=== PATIENT | female | born 1940 | race Caucasian/White ===

== ENCOUNTER → 2017-01-22 | Outpatient (CLI) | payer MEDICARE ==
--- NOTE | 2017-01-23 08:24 | XR ---
Left hip HISTORY: Left hip pain 2 views of the left hip correlated to right hip 10/23/2015 Bone mineralization is reduced. Alignment is maintained. Moderate joint space narrowing is present. N o significant hypertrophic change. No fracture or dislocation. Probable vascular calcifications noted . Suspect some degenerative change at the sacroiliac joint. IMPRESSION: Joint space narrowing is symmetric.
== END | disposition home or self-care (01) ==
LOC: RADXRYALE 12:01
PROVIDERS: ATTEND Physician Assistant Medical
DX: M25.852 Other specified joint disorders, left hip (principal)
CPT/HCPCS: 73502

== ENCOUNTER 2017-04-30 17:16 | Observation (INO) | payer MEDICARE ==
[2017-04-30] MEDS ORDERED: ASPIRIN 81 MG PO STA (17:33)
[2017-04-30 18:01] LABS: Basophils % (A) 0 %; CH 31.9; Eosinophils # (A) 0.2 k/uL (0-0.7); Eosinophils % (A) 3 %; HCT 38.1 % (34.0-46.0); HDW 2.75; HGB 12.8 gm/dL (11.4-16.0); Luc # (Auto) 0.15; Luc % (Auto) 2; Lymphocytes % (A) 25 %; MCH 30.8 pg (25.0-35.0); MCHC 33.6 g/dL (31.0-37.0); MCV 91.6 fL (80.0-100.0); Mean Platelet Volume 8.1; Monocytes # (A) 0.5 k/uL (0-1.0); Monocytes % (A) 6 %; Neutrophils # (A) 4.9 k/uL (1.3-7.7); Neutrophils % (A) 63 %; RBC 4.16 m/uL (3.80-5.40); RDW 14.6 % (11.5-15.5); WBC 7.8 k/uL (3.8-10.6); WBC (Perox) 8.11
[2017-04-30 18:09] LABS: Partial Thromboplastin Time 22.3 sec (22.0-30.0); Prothrombin Time 10.5 sec (9.0-12.0)
[2017-04-30 18:14] LABS: ALT 51 U/L (9-52); Alkaline Phosphatase 51 U/L (38-126); Anion Gap 8 mmol/L; Calcium 9.4 mg/dL (8.4-10.2); Carbon Dioxide 23 mmol/L (22-30); Chloride 109 mmol/L (98-107); Glucose 88 mg/dL (74-99); Magnesium 1.5 mg/dL (1.6-2.3); Non-African American GFR(MDRD) 54 (>60 ml/min/1.73 sqM); Sodium 140 mmol/L (137-145); Total Bilirubin 0.9 mg/dL (0.2-1.3); Total Protein 6.8 g/dL (6.3-8.2)
[2017-04-30 18:18] LABS: AST 41 U/L (14-36); Blood Urea Nitrogen 18 mg/dL (7-17); Potassium 4.3 mmol/L (3.5-5.1)
--- NOTE | 2017-04-30 19:37 | XR ---
EXAMINATION TYPE: XR chest 2V DATE OF EXAM: 04/30/2017 COMPARISON: 09/13/2014 HISTORY: Pain TECHNIQUE: Frontal and lateral views of the chest are obtained. FINDINGS: There is no focal air space opacity, pleural effusion, or pneumothorax seen. The cardiac silhouette size is within normal limits. There is evidence of a prominent hiatal hernia. The osseous structures are intact. IMPRESSION: No acute cardiopulmonary process.
[2017-04-30] MEDS ORDERED: NALOXONE 0.4 MG/ML 1 ML VIAL IV PRN (19:43)
--- NOTE | 2017-04-30 19:43 | ED ---
Chest Pain HPI - General Chief Complaint: Chest Pain Stated Complaint: chest pains Time Seen by Provider: 04/30/17 17:31 Source: patient Mode of arrival: wheelchair Limitations: no limitations - History of Present Illness Initial Comments: patient complains of chest pain. Pain is in the middle of the chest. It radiates to the left arm and shoulder. She has some nausea but no vomiting. He has no belly or back pain. The pain is gotten worse throughout the day. There are no specific exacerbating or relieving factors. She has taken no medications for the pain. She was not doing anything when the pain began. She has no headache. She has no neck pain or stiffness. She has no palpitations. - Related Data Home Medications Medication Instructions Recorded Confirmed Atorvastatin [Lipitor] 40 mg PO DAILY 04/30/17 04/30/17 Cholecalciferol [Vitamin D3] 1,000 unit PO DAILY 04/30/17 04/30/17 Fish Oil/[place] 3 1200mg/360mg 1 cap PO DAILY 04/30/17 04/30/17 Ibuprofen [Motrin] 200 mg PO HS 04/30/17 04/30/17 Losartan/Hydrochlorothiazide 1 tab PO DAILY 04/30/17 04/30/17 [Losartan-Hctz 100-25 mg Tab] Omeprazole [PriLOSEC] 20 mg PO DAILY 04/30/17 04/30/17 Allergies Allergy/AdvReac Type Severity Reaction Status Date / Time No Known Allergies Allergy Verified 04/30/17 18:05 Review of Systems ROS Statement: Those systems with pertinent positive or pertinent negative responses have been documented in the HPI. ROS Other: All systems not noted in ROS Statement are negative. EKG Findings - EKG Comments: EKG Findings:: twelve-lead EKG is interpreted by me showing ventricular rate 81 bpm, normal [place] interval and QRS complexes, no ST elevation or depression, interpreted by me as normal sinus rhythm. Past Medical History Past Medical History: CVA/TIA, Hypertension History of Any Multi-Drug Resistant Organisms: None Reported Past Surgical History: Appendectomy, Coronary Bypass/CABG, Hysterectomy Additional Past Surgical History / Comment(s): left ankle surgery, right shoulder Past Psychological History: Anxiety Smoking Status: Former smoker Past Alcohol Use History: Rare Past Drug Use History: None Reported General Exam Limitations: no limitations General appearance: alert, in no apparent distress Head exam: Present: atraumatic, normocephalic, normal inspection Eye exam: Present: normal appearance, PERRL, EOMI. Absent: scleral icterus, conjunctival injection, periorbital swelling ENT exam: Present: normal exam, mucous membranes moist Neck exam: Present: normal inspection. Absent: tenderness, meningismus, lymphadenopathy Respiratory exam: Present: normal lung sounds bilaterally. Absent: respiratory distress, wheezes, rales, rhonchi, stridor Cardiovascular Exam: Present: regular rate, normal rhythm, normal heart sounds. Absent: systolic murmur, diastolic murmur, rubs, gallop, clicks GI/Abdominal exam: Present: soft, normal bowel sounds. Absent: distended, tenderness, guarding, rebound, rigid Extremities exam: Present: normal inspection, full ROM, normal capillary refill. Absent: tenderness, pedal edema, joint swelling, calf tenderness Back exam: Present: normal inspection Neurological exam: Present: alert, oriented X3, CN II-XII intact Psychiatric exam: Present: normal affect, normal mood Skin exam: Present: warm, dry, intact, normal color. Absent: rash Course Vital Signs 04/30/17 04/30/17 04/30/17 17:23 17:54 19:39 Temperature 97.2 F L Pulse Rate 74 66 63 Respiratory 20 17 18 Rate Blood Pressure 177/66 197/88 175/101 O2 Sat by Pulse 98 99 100 Oximetry Chest Pain MDM - MDM patient complains of chest pain. She has a negative troponin. Her chest x- rays clear. She will be admitted to the hospital for further evaluation. Disposition Clinical Impression: Chest pain Disposition: ADMITTED IP TO THIS HOSP Condition: Fair Referrals: Emmanuel Dunaway DO [Primary Care Provider] - 1-2 days Time of Disposition: 19:43
[2017-04-30 21:01] VITALS: BMI 25.0
[2017-04-30] MEDS ORDERED: NITROGLYCERIN SL TABS 0.4 MG TAB SUBLINGUAL ONE (21:03)
[2017-04-30] MEDS ORDERED: ALPRAZolam 0.25 MG TAB PO PRN (21:55)
[2017-04-30] MEDS: ATORVASTATIN 40 MG TAB PO SCH (22:11)
[2017-05-01 00:37] LABS: Appearance,Urine Clear (Clear); Bacteria,Urine Rare /hpf; Bilirubin,Urine Negative (Negative); Glucose,Urine (UA) Negative (Negative); Ketones,Urine Negative (Negative); Leukocyte Esterase,Urine Large (Negative); Mucus,Urine Rare /hpf; Nitrite,Urine Negative (Negative); Particle Count 1650; Protein,Urine Negative (Negative); RBC,Urine 3 /hpf (0-5); Specific Gravity,Urine 1.007 (1.001-1.035); Squamous Epithelial Cell,Urine <1 /hpf (0-4); UA Billing (MACRO vs. MICRO) MICRO; Urobilinogen,Urine <2.0 mg/dL (<2.0); WBC,Urine 51 /hpf (0-5)
[2017-05-01] MEDS ORDERED: Magnesium Replacement Protocol 1 EACH MISC MISCELLANE PRN (00:48)
[2017-05-01] MEDS: HYDROcodone/APAP 5-325MG 1 EACH TAB PO PRN ×3 (01:19→12:52)
[2017-05-01] MEDS: MAGNESIUM SULFATE-D5W PMX 1 GM in DEXTROSE/WATER 1 100ML.BAG IVPB SCH ×2 (01:21→02:33)
[2017-05-01] MEDS: TEMAZEPAM 15 MG CAP PO PRN ×2 (01:29→22:00)
[2017-05-01 06:09] LABS: Basophils % (A) 1 %; CH 30.4; CHCM 33.9; Eosinophils # (A) 0.3 k/uL (0-0.7); Eosinophils % (A) 4 %; HCT 33.6 % (34.0-46.0); HDW 2.71; HGB 11.3 gm/dL (11.4-16.0); Luc # (Auto) 0.17; Luc % (Auto) 3; Lymphocytes # (A) 2.3 k/uL (1.0-4.8); Lymphocytes % (A) 38 %; MCH 30.4 pg (25.0-35.0); MCHC 33.7 g/dL (31.0-37.0); MCV 90.2 fL (80.0-100.0); Mean Platelet Volume 7.3; Monocytes # (A) 0.4 k/uL (0-1.0); Monocytes % (A) 7 %; Neutrophils % (A) 49 %; RBC 3.73 m/uL (3.80-5.40); RDW 13.9 % (11.5-15.5); WBC 6.2 k/uL (3.8-10.6); WBC (Perox) 6.57
[2017-05-01 06:23] LABS: Anion Gap 7 mmol/L; Blood Urea Nitrogen 23 mg/dL (7-17); Calcium 8.9 mg/dL (8.4-10.2); Carbon Dioxide 24 mmol/L (22-30); Chloride 106 mmol/L (98-107); Glucose 91 mg/dL (74-99); Non-African American GFR(MDRD) >60 (>60 ml/min/1.73 sqM); Potassium 3.5 mmol/L (3.5-5.1); Sodium 137 mmol/L (137-145)
[2017-05-01] MEDS: PANTOPRAZOLE 40 MG TABLET PO SCH (06:37)
[2017-05-01] MEDS ORDERED: DOBUTamine DRIP for NUC MED 500 MG in DEXTROSE/WATER 1 250ML.BAG IV ONE (08:51)
[2017-05-01] MEDS ORDERED: ATORVASTATIN 40 MG TAB PO SCH (09:00)
--- NOTE | 2017-05-01 10:09 | HP ---
HISTORY AND PHYSICAL DATE OF SERVICE: 04/30/2017 CHIEF COMPLAINT: Chest pain. HISTORY OF PRESENT ILLNESS: This 77-year-old, woman with a past medical history of CVA, TIA, hypertension, history of multiple strokes, living with the family, apparently had chest pain and patient came to [facility]. The pain was felt in the anterior part of the chest. Patient is followed by Dr. Dunaway in the outpatient setting. Patient also complaining of some nausea, vomiting and diffuse abdominal pain. The patient appears to be anxious also. There is no specific exacerbation or relieving factors of the pain. No radiation of the pain. The pain is vaguely characterized and admitted for further evaluation and treatment. After admission, the troponins are negative and EKG was also done in the ER, which showed ST-T changes and LVH by voltage criteria. There is no history of fever, rigors or chills. No headache, loss of consciousness or seizures. PAST MEDICAL HISTORY: CVA, TIA, hypertension, several strokes, anxiety. MEDICATIONS: Medications prior to admission include: 1. Motrin 200 mg q.h.s. 2. Prilosec 20 mg daily. 3. Losartan hydrochlorothiazide 100/25 one p.o. daily. 4. Fish oil 1 p.o. daily. 5. Vitamin D3, 1000 units daily. 6. Lipitor 40 mg p.o. daily. ALLERGIES: None. FAMILY HISTORY: No history of heart disease or strokes in the family. SOCIAL HISTORY: No history of smoking. No history of alcohol intake. Previous history of smoking. REVIEW OF SYSTEMS: ENT: No diminished hearing or diminished vision. CARDIOVASCULAR: As mentioned earlier. RESPIRATORY: As mentioned earlier. GI: As mentioned earlier. : No dysuria. NERVOUS SYSTEM: No numbness or weakness. ALLERGY/IMMUNOLOGICAL: No history asthma or hayfever. MUSCULOSKELETAL: As mentioned earlier. HEMATOLOGY/ONCOLOGY: No history of anemia. ENDOCRINE: No history of diabetes or hypothyroidism. CONSTITUTIONAL: As mentioned earlier. DERMATOLOGY: Negative. RHEUMATOLOGY: Negative. PSYCHIATRY: As mentioned earlier.. PHYSICAL EXAMINATION: The patient is alert, oriented x3. Pulse is 66, blood pressure 163/84, respiration 18, temperature is 98.2, pulse ox 100% on 2 L. HEENT: Conjunctivae normal. NECK: No jugular venous distention. CARDIOVASCULAR: S1 and S2 muffled. RESPIRATORY: Breath sounds diminished at the bases. A few scattered rhonchi. No crackles. ABDOMEN: Soft, nontender. No mass palpable. No hepatosplenomegaly. LEGS: No edema. No swelling. NERVOUS SYSTEM: Higher function as mentioned. Moves all 4 limbs. No focal motor or sensory deficits. LYMPHATICS: No lymphadenopathy of the neck, axillae or groin. SKIN: No ulcer, rash or bleeding. EXAMINATION OF THE CHEST: Some superficial tenderness also noted. LABS: CBC within normal limits. Otherwise BUN is 18. Magnesium 1.5, UA shows UTI. ASSESSMENT: 1. Chest pain, possible unstable angina, possible musculoskeletal pain. 2. Urinary tract infection. 3. Hypomagnesemia. 4. Hypertension. 5. History of cerebrovascular accident and transient ischemic attack. 6. History of multiple strokes. RECOMMENDATION AND DISCUSSION: This 77-year-old woman presented with multiple complex medical issues, will monitor the patient closely. Continue the current medication. Magnesium has been replaced. I would also recommend a course of antibiotics and otherwise repeat labs. Cardiology consultation. Symptomatic treatment. Prognosis guarded because of the multiple complex medical issues and further recommendations to follow. Also recommend empiric proton pump inhibitors. Medication for anxiety. Unstable angina protocol. Guarded prognosis because of multiple complex medical issues. Further recommendations to follow. Cardiology has been consulted. A copy of dictation forwarded to Dr. Dunaway who is the primary physician. MMRAZAL / RODN: [id number] /
[2017-05-01] MEDS: LOSARTAN-HCTZ 50-12.5 MG 1 EACH TAB PO SCH (11:27)
--- NOTE | 2017-05-01 12:36 | P.CRDCN ---
History of Present Illness Consult date: 05/01/17 Consult reason: chest pain History of present illness: 77-year-old lady with history of hypertension and dyslipidemia presents to hospital with precordial chest pain. She is a poor historian has hearing impairment chest discomfort is pericardial without definite radiation to neck, back unassociated with diaphoresis. Since being admitted she is doing well EKG doesn't reveal ischemic changes cardiac enzymes have been negative. I will do a dobutamine echo on her today if this is abnormal do cardiac catheterization. Review of Systems Constitutional: Denies chills. Denies fever. Eyes: Denies blurred vision. Denies pain. Ears, nose, mouth and throat: Denies headache. Denies sore throat. Cardiovascular: has chest pain. Denies shortness of breath. Respiratory: Denies cough. Gastrointestinal: Denies abdominal pain. Denies diarrhea. Denies nausea. Denies vomiting. Musculoskeletal: Denies myalgias. Integumentary: Denies pruritus. Denies rash. Neurological: Denies numbness. Denies weakness. Psychiatric: Denies anxiety. Denies depression. Endocrine: Denies fatigue. Denies weight change. Genitourinary: Denies burning, hematuria, frequency of urination. Hematological: No anemia or excess bleeding. Past Medical History Past Medical History: CVA/TIA, Hypertension Additional Past Medical History / Comment(s): several strokes per daughter History of Any Multi-Drug Resistant Organisms: None Reported Past Surgical History: Appendectomy, Hysterectomy Additional Past Surgical History / Comment(s): left ankle surgery, right shoulder Past Anesthesia/Blood Transfusion Reactions: No Reported Reaction Past Psychological History: Anxiety Smoking Status: Former smoker Past Alcohol Use History: Rare Past Drug Use History: None Reported - Past Family History Father Family Medical History: No Reported History Mother Family Medical History: No Reported History Daughter(s) Family Medical History: Fibromyalgia Medications and Allergies Home Medications Medication Instructions Recorded Confirmed Type Atorvastatin [Lipitor] 40 mg PO DAILY 04/30/17 04/30/17 History Cholecalciferol [Vitamin D3] 1,000 unit PO DAILY 04/30/17 04/30/17 History Fish Oil/[place] 3 1200mg/360mg 1 cap PO DAILY 04/30/17 04/30/17 History Losartan/Hydrochlorothiazide 1 tab PO DAILY 04/30/17 04/30/17 History [Losartan-Hctz 100-25 mg Tab] Omeprazole [PriLOSEC] 20 mg PO DAILY 04/30/17 04/30/17 History Allergies Allergy/AdvReac Type Severity Reaction Status Date / Time No Known Allergies Allergy Verified 04/30/17 18:05 Physical Exam Vitals: Vital Signs Temp Pulse Pulse Resp BP BP Pulse Ox 05/01/17 11:25 97.1 F L 77 18 130/63 100 05/01/17 11:19 66 18 05/01/17 08:00 97.4 F L 66 18 127/70 95 05/01/17 04:00 97.2 F L 64 18 134/73 94 L 05/01/17 00:00 75 18 131/69 98 04/30/17 21:00 98.2 F 68 18 155/94 100 04/30/17 20:47 66 18 163/84 04/30/17 20:18 97.9 F 04/30/17 19:39 63 18 175/101 100 04/30/17 17:54 66 17 197/88 99 04/30/17 17:23 97.2 F L 74 20 177/66 98 Intake and Output 04/30/17 05/01/17 05/01/17 22:59 06:59 14:59 Intake Total 360 300 Balance 360 300 Intake: IV 60 0.9 60 Intake, IV Titration 300 Amount Magnesium Sulfate-D5w Pmx 200 1 gm In Dextrose/Water 1 100ml.bag @ 100 mls/hr IVPB Q1H ROBBIE Rx#: [id number] cefTRIAXone 1,000 mg In 100 Sodium Chloride 0.9% 50 ml @ 100 mls/hr IVPB Q24H ROBBIE Rx#:[id number] Oral 300 Other: # Voids 1 Weight 58 kg 53.8 kg General: The patient is awake and alert, in no distress, and does not appear acutely ill. Skin: Skin is warm and dry and no rashes or lesions are noted. Eye: Pupils are equal, round and reactive to light, extra-ocular movements are intact; there is normal conjunctiva bilaterally. Ears, nose, mouth and throat: There are moist mucous membranes and no oral lesions. Neck: The neck is supple, there is no tenderness or JVD. Cardiovascular: There is a regular rate and rhythm. No murmur, rub or gallop is appreciated. Respiratory: Lungs are clear to auscultation, respirations are non-labored, breath sounds are equal. Gastrointestinal: Soft, non-distended, non-tender abdomen without masses or organomegaly noted. There is no rebound or guarding present. Bowel sounds are unremarkable. Back: There is no tenderness to palpation in the midline. There is no obvious deformity. Musculoskeletal: Normal ROM, no tenderness, There is no pedal edema. There is no calf tenderness or swelling. Extremities: No edema. Vascular: Femoral pulse is normal. Posterior tibial pulses are normal .Dorsalis pedis is palpable. Neurological: CN II-XII intact. There are no obvious motor or sensory deficits. Speech is normal. Psychiatric: Cooperative, appropriate mood & affect, normal judgment. Results 05/01/17 05:39 05/01/17 05:39 Cardiac Enzymes 04/30/17 04/30/17 04/30/17 Range/Units 17:45 17:45 23:57 AST 41 H (14-36) U/L Troponin I <0.012 0.014 (0.000-0.034) ng/mL 05/01/17 Range/Units 05:39 AST (14-36) U/L Troponin I <0.012 (0.000-0.034) ng/mL Coagulation 04/30/17 Range/Units 17:45 PT 10.5 (9.0-12.0) sec APTT 22.3 (22.0-30.0) sec CBC 04/30/17 05/01/17 Range/Units 17:45 05:39 WBC 7.8 6.2 (3.8-10.6) k/uL RBC 4.16 3.73 L (3.80-5.40) m/uL Hgb 12.8 11.3 L (11.4-16.0) gm/dL Hct 38.1 33.6 L (34.0-46.0) % Plt Count 272 257 (150-450) k/uL Comprehensive Metabolic Panel 04/30/17 05/01/17 Range/Units 17:45 05:39 Sodium 140 137 (137-145) mmol/L Potassium 4.3 3.5 (3.5-5.1) mmol/L Chloride 109 H 106 (98-107) mmol/L Carbon Dioxide 23 24 (22-30) mmol/L BUN 18 H 23 H (7-17) mg/dL Creatinine 1.00 0.80 (0.52-1.04) mg/dL Glucose 88 91 (74-99) mg/dL Calcium 9.4 8.9 (8.4-10.2) mg/dL AST 41 H (14-36) U/L ALT 51 (9-52) U/L Alkaline Phosphatase 51 (38-126) U/L Total Protein 6.8 (6.3-8.2) g/dL Albumin 4.1 (3.5-5.0) g/dL Current Medications Generic Name Dose Route Start Last Admin Trade Name Freq PRN Reason Stop Dose Admin Hydrocodone Bitart/Acetaminophen 1 each 05/01/17 00:47 05/01/17 06:37 [place] 5-325 PO 1 each Q6HR PRN Administration Pain Alprazolam 0.25 mg 04/30/17 21:55 04/30/17 22:11 Xanax PO 0.25 mg Q6H PRN Administration Anxiety Atorvastatin Calcium 40 mg 04/30/17 21:19 04/30/17 22:11 Lipitor PO 40 mg HS ROBBIE Administration HCTZ/Losartan Potassium 2 each 05/01/17 09:00 05/01/17 11:27 Hyzaar 50-12.5 PO 2 each DAILY ROBBIE Administration Ceftriaxone Sodium 1,000 mg/ 50 mls @ 100 mls/hr 05/01/17 02:00 05/01/17 03: 41 Sodium Chloride IVPB 100 mls/hr Q24H ROBBIE Administration Miscellaneous Information 1 each 05/01/17 00:48 Magnesium Per Protocol MISCELLANE DAILY PRN Per Protocol Protocol Naloxone HCl 0.2 mg 04/30/17 19:43 Narcan IV Q2M PRN Opioid Reversal Pantoprazole Sodium 40 mg 05/01/17 07:30 05/01/17 06:37 Protonix PO 40 mg AC-[id number] ROBBIE Administration Temazepam 15 mg 05/01/17 00:47 05/01/17 01:29 Restoril PO 15 mg HS PRN Administration Insomnia Intake and Output 04/30/17 05/01/17 05/01/17 22:59 06:59 14:59 Intake Total 360 300 Balance 360 300 Intake: IV 60 0.9 60 Intake, IV Titration 300 Amount Magnesium Sulfate-D5w Pmx 200 1 gm In Dextrose/Water 1 100ml.bag @ 100 mls/hr IVPB Q1H ROBBIE Rx#: [id number] cefTRIAXone 1,000 mg In 100 Sodium Chloride 0.9% 50 ml @ 100 mls/hr IVPB Q24H ROBBIE Rx#:[id number] Oral 300 Other: # Voids 1 Weight 58 kg 53.8 kg 05/01/17 05:39 05/01/17 05:39 EKG Interpretations (text) Normal sinus rhythm without acute ST-T wave changes Assessment and Plan Plan: Precordial chest pain We need to rule out ischemic heart disease and perform a stress test if that's abnormal she will need a cardiac cath
[2017-05-01] MEDS ORDERED: SIMETHICONE 80 MG CHEWABLE PO PRN (15:46)
[2017-05-01] MEDS ORDERED: ONDANSETRON 4 MG/2 ML VIAL IVP PRN (15:56)
[2017-05-01] MEDS: ATORVASTATIN 40 MG TAB PO SCH (20:21)
--- NOTE | 2017-05-01 22:32 | ECHOS ---
STRESS ECHOCARDIOGRAM Dobutamine Stress Echo INDICATIONS:: Chest pain. MEDICATIONS:: See list. BASELINE HEART RATE:: 76 BASELINE BLOOD PRESSURE:: 161/68 MAXIMUM HEART RATE:: 125 MAXIMUM BLOOD PRESSURE:: 166/68 85% MPHR:: 122 100% MPHR:: 144 METS:: MAXIMUM STAGE REACHED:: 4 mcg/kg per minute TOTAL EXERCISE TIME:: 11:45 INDICATIONS:: Chest pain. CLINICAL INFORMATION:: Baseline EKG revealed sinus mechanism with minor non-specific ST changes. With dobutamine administration as per protocol, heart rate went up to 125 beats per minute, which is more than 85% of predicted maximal. Patient did not have any angina. Isolated PVCs were noted. EKG did not reveal any significant ST-segment changes to indicate ischemia. Upsloping non-specific ST-segment changes were noted. Isolated PVCs were noted. By EKG criteria, this is an inconclusive dobutamine stress test because of minor resting EKG changes. Patient did not have any angina. She achieved 85% of predicted maximal heart rate. Baseline echo images revealed normal wall motion and wall thickening of all segments. At peak exercise, there was good augmentation of left ventricular wall motion and wall thickening of all segments, suggesting that there is no evidence of stress-induced ischemia. There was progressive increase in contractility noted. FINAL IMPRESSION: By EKG criteria, this is an inconclusive dobutamine stress test because of minor resting EKG changes. The patient did not have angina. Isolated PVCs were noted. Normal dobutamine stress echocardiogram without evidence of ischemia. MMODL / IJN: [id number] /
[2017-05-02] MEDS: PANTOPRAZOLE 40 MG TABLET PO SCH (07:01)
[2017-05-02] MEDS: LOSARTAN-HCTZ 50-12.5 MG 1 EACH TAB PO SCH (08:19)
[2017-05-02 08:24] VITALS: TEMP 97.1
[2017-05-02 11:40] VITALS: BP 134/89; PULSE 73; RESP 18
--- NOTE | 2017-05-02 11:42 | PN ---
PROGRESS NOTE DATE OF SERVICE: 05/01/2017 This 77-year-old woman was admitted with chest pain has been closely monitored. Cardiology performed a stress test. No chest pain. No palpitations. No fever. PHYSICAL EXAMINATION: On exam, alert, oriented x3. Pulse 65, blood pressure 126/67, respiration 18, temperature 97.2, pulse ox 98% room air. HEENT: Conjunctivae normal. NECK: No jugular venous distention. CARDIOVASCULAR: S1, S2. RESPIRATORY: Breath sounds diminished at the bases. No rhonchi, no crackles. ABDOMEN: Soft, nontender. LEGS: No edema. NERVOUS SYSTEM: No focal deficits. LABS: WBC 6.2, hemoglobin 11.3, UA possibly UTI. ASSESSMENT: 1. Chest pain, possible unstable angina, possibly musculoskeletal pains for stress test. 2. Urinary tract infection. 3. Hypomagnesemia. 4. Hypertension. 5. History of cerebrovascular accident, transient ischemic attack. 6. History of multiple strokes. RECOMMENDATIONS AND DISCUSSION: In this 77-year-old woman who presented with multiple complex medical issues, will monitor the patient closely. Symptomatic treatment. Antibiotics. Otherwise follow closely with Cardiology. Further recommendations to follow. MMODL / IJN: [id number] /
--- NOTE | 2017-05-02 18:01 | P.DS ---
Providers Date of admission: 04/30/17 19:43 Attending physician: Costa Hathaway Consults: 04/30/17 19:43 Consult Physician Routine Consulting Provider: Manpreet Hair Consult Reason/Comments: chest pain Do you want consulting provider notified?: Yes [facility] Course: This 77-year-old woman with a past medical history of multiple medical problems was admitted with the chest pain. Myocardial infarction was ruled out. Cardiology saw the patient. A dobutamine stress echo was negative for myocardial ischemia. Patient also had UTI. Treated with antibiotic. Patient improved significantly. Cardiology cleared the patient for discharge. On exam vitals stable. Cardio S1 and S2 normal. Respirator system clear to auscultation. Abdomen soft nontender. Final diagnosis 1. Chest pain possibly musculoskeletal chest pain. 2. Negative stress test. 3. UTI. 4. Hypomagnesemia. 5. Hypertension. 6. History of CVA TIA. 7. History multiple strokes. Patient Condition at Discharge: Fair Plan - Discharge Summary New Discharge Prescriptions: New ALPRAZolam [Xanax] 0.25 mg PO Q6H PRN #30 tab PRN Reason: Anxiety Cefuroxime Axetil [Ceftin] 500 mg PO BID #8 tab HYDROcodone/APAP 5-325MG [[place] 5-325] 1 each PO Q6HR PRN #20 tab PRN Reason: Pain Continue Omeprazole [PriLOSEC] 20 mg PO DAILY Losartan/Hydrochlorothiazide [Losartan-Hctz 100-25 mg Tab] 1 tab PO DAILY Cholecalciferol [Vitamin D3] 1,000 unit PO DAILY Atorvastatin [Lipitor] 40 mg PO DAILY Fish Oil/[place] 3 1200mg/360mg 1 cap PO DAILY Discontinued Ibuprofen [Motrin] 200 mg PO HS Discharge Medication List Atorvastatin [Lipitor] 40 mg PO DAILY 04/30/17 [History] Cholecalciferol [Vitamin D3] 1,000 unit PO DAILY 04/30/17 [History] Fish Oil/[place] 3 1200mg/360mg 1 cap PO DAILY 04/30/17 [History] Losartan/Hydrochlorothiazide [Losartan-Hctz 100-25 mg Tab] 1 tab PO DAILY [History] Omeprazole [PriLOSEC] 20 mg PO DAILY 04/30/17 [History] ALPRAZolam [Xanax] 0.25 mg PO Q6H PRN #30 tab 05/02/17 [Rx] Cefuroxime Axetil [Ceftin] 500 mg PO BID #8 tab 05/02/17 [Rx] HYDROcodone/APAP 5-325MG [[place] 5-325] 1 each PO Q6HR PRN #20 tab 05/02/17 [Rx] Follow up Appointment(s)/Referral(s): Emmanuel Dunaway DO [Primary Care Provider] - 3 Days (Answering service stated that offices are closed at this time. Please call to make an appointment for post hospital follow up.) Jean-Paul Monroe MD [STAFF PHYSICIAN] - 1 Week (Ansering service states that offices are closed at this time. Message left with name and phone number. Offices will call with an appointment date and time. ) Ambulatory/Diagnostic Orders: Complete Blood Count w/diff [LAB.AMB] Time Frame: 3 Days, Location: Determined By Patient Complete Blood Count w/diff [LAB.AMB] Location: Determined By Patient Patient Instructions/Handouts: Chest Pain (DC), Heart Healthy Diet (DC), Stress Echocardiogram (DC) Activity/Diet/Wound Care/Special Instructions: Diet: Cardiac Activity: Limited until follow up Discharge Disposition: HOME SELF-CARE
--- NOTE | 2017-05-21 17:42 | CDI ---
Dear Dr Hathaway, On your discharge summary and throughout your documentation the patient is described as having "chest pain possibly musculoskeletal chest pain." On the cardiology consult from Dr Monroe, the diagnosis is listed as precordial chest pain. We are unable to code conflicting diagnosis. Please clarify in your discharge summary the typeof the chest pain the patient had. Thank you for your assistance, Jeane Morley If you have any questions, please contact Publicity Director, Stephie Eugene at [facility], precordial is a type of chest pain. page me with any questions. Rivas TOLENTINO
== END 2017-05-02 14:30 | disposition home or self-care (01) ==
LOC: EC 17:16 → 6SEL 19:43
PROVIDERS: ADMIT Hospitalist; ATTEND Hospitalist
DX: R07.2 Precordial pain (principal); I10 Essential (primary) hypertension; F41.9 Anxiety disorder, unspecified; R11.2 Nausea with vomiting, unspecified; E83.42 Hypomagnesemia; R10.84 Generalized abdominal pain; N39.0 Urinary tract infection, site not specified; H91.90 Unspecified hearing loss, unspecified ear; E78.5 Hyperlipidemia, unspecified; Z79.899 Other long term (current) drug therapy; Z95.1 Presence of aortocoronary bypass graft; Z87.891 Personal history of nicotine dependence; Z86.73 Personal history of transient ischemic attack (TIA), and cerebral infarction without residual deficits
CPT/HCPCS: 96365; 96366; 96367; 96375; 99285; 36415; 93005; 93017; 93350; 83880; 80053; 80048; 83735 ×2; 84484 ×2; 85025 ×2; 85610; 85730; 81001; 71020; G0378 ×3; J1250; J2405; J0696 ×2; J3475

== ENCOUNTER 2017-06-13 14:48 | Emergency (ER) | payer MEDICARE ==
[2017-06-13] MEDS ORDERED: Acetaminophen-Codeine 300-30mg TAB PO STA (15:03)
--- NOTE | 2017-06-13 15:29 | ED ---
Fall HPI - General Chief Complaint: Fall Stated Complaint: fall at home Time Seen by Provider: 06/13/17 14:53 Source: patient, family Mode of arrival: wheelchair Limitations: no limitations - History of Present Illness Initial Comments: This a 77-year-old female presents emergency department trip and fall. Patient states she was walking along states that she caught her foot and fell onto a table. She did strike her right shoulder, right chest wall region. Patient states that she also complains of right hip pain. There is moderate swelling noted there is central right hip. Patient denies any head injury no LOC. Denies neck or any back complaints at this time. Patient is post ambulate with a walker though she tends not to because she does not like to use it. Patient denies any shortness breath, nausea vomiting at this time. Patient has not taken any pain medication prior arrival. - Related Data Home Medications Medication Instructions Recorded Confirmed Atorvastatin [Lipitor] 40 mg PO HS 04/30/17 06/13/17 Cholecalciferol [Vitamin D3] 1,000 unit PO DAILY 04/30/17 06/13/17 Fish Oil/[place] 3 1200mg/360mg 1 cap PO DAILY 04/30/17 06/13/17 Losartan/Hydrochlorothiazide 1 tab PO DAILY 04/30/17 06/13/17 [Losartan-Hctz 100-25 mg Tab] Omeprazole [PriLOSEC] 20 mg PO DAILY 04/30/17 06/13/17 Acetaminophen [Tylenol Extra 500 mg PO Q6H PRN 06/13/17 06/13/17 Strength] Previous Rx's Medication Instructions Recorded Acetaminophen-Codeine 300-30mg 1 tab PO Q4H PRN #20 tablet 06/13/17 [Tylenol #3] Allergies Allergy/AdvReac Type Severity Reaction Status Date / Time acetaminophen [From [place]] Allergy Hallucinati Verified 06/13/17 14:53 ons hydrocodone [From [place]] Allergy Hallucinati Verified 06/13/17 14:53 ons Review of Systems ROS Statement: Those systems with pertinent positive or pertinent negative responses have been documented in the HPI. ROS Other: All systems not noted in ROS Statement are negative. Past Medical History Past Medical History: CVA/TIA, Hypertension Additional Past Medical History / Comment(s): several strokes per daughter History of Any Multi-Drug Resistant Organisms: None Reported Past Surgical History: Appendectomy, Hysterectomy Additional Past Surgical History / Comment(s): left ankle surgery, right shoulder Past Anesthesia/Blood Transfusion Reactions: No Reported Reaction Past Psychological History: Anxiety Smoking Status: Former smoker Past Alcohol Use History: Rare Past Drug Use History: None Reported - Past Family History Father Family Medical History: No Reported History Mother Family Medical History: No Reported History Daughter(s) Family Medical History: Fibromyalgia General Exam Limitations: physical limitation General appearance: alert, in no apparent distress Head exam: Present: atraumatic, normocephalic, normal inspection Eye exam: Present: normal appearance, PERRL, EOMI. Absent: scleral icterus, conjunctival injection, periorbital swelling ENT exam: Present: normal exam, mucous membranes moist Neck exam: Present: normal inspection, full ROM. Absent: tenderness, meningismus, lymphadenopathy Respiratory exam: Present: normal lung sounds bilaterally, chest wall tenderness (Moderate right-sided). Absent: respiratory distress, wheezes, rales , rhonchi, stridor Cardiovascular Exam: Present: regular rate, normal rhythm, normal heart sounds. Absent: systolic murmur, diastolic murmur, rubs, gallop, clicks GI/Abdominal exam: Present: soft, normal bowel sounds. Absent: distended, tenderness, guarding, rebound, rigid Extremities exam: Present: other (Right hip there is a large area of swelling noted to the lateral portion with moderate tenderness patient has pain with range of motion distal right leg nontender neurovascular, right shoulder old surgical scar noted, pain with range of motion and tenderness with palpation) Back exam: Present: normal inspection, full ROM. Absent: tenderness Neurological exam: Present: alert, oriented X3, CN II-XII intact, reflexes normal. Absent: motor sensory deficit Skin exam: Present: warm, dry, intact, normal color. Absent: rash Course Vital Signs 06/13/17 06/13/17 14:51 15:44 Temperature 98.1 F Pulse Rate 73 89 Respiratory 18 20 Rate Blood Pressure 188/68 180/87 O2 Sat by Pulse 98 97 Oximetry Medical Decision Making - Medical Decision Making 77-year-old female presented for fall. Patient had x-rays of the right shoulder , ribs and hip which showed no acute fracture. Patient has multiple contusions with no obvious fracture. Patient discharged without codeine return parameters were discussed. 06/13/17 16:36 EKG performed at 15:34 normal sinus rhythm with a rate of 65 WA interval 182 QRS 74 QT/QTC 436/453 Disposition Clinical Impression: Fall, Multiple contusions, Right hip pain Disposition: HOME SELF-CARE Condition: Stable Instructions: Contusion in Adults (ED) Additional Instructions: Please return to the Emergency Department if symptoms worsen or any other concerns. Prescriptions: Acetaminophen-Codeine 300-30mg [Tylenol #3] 1 tab PO Q4H PRN #20 tablet PRN Reason: pain Referrals: Emmanuel Dunaway DO [Primary Care Provider] - 1-2 days Time of Disposition: 16:37
[2017-06-13 15:45] VITALS: RESP 20
--- NOTE | 2017-06-13 16:14 | XR ---
EXAMINATION TYPE: XR ribs RT w pa chest xray DATE OF EXAM: 06/13/2017 COMPARISON: NONE HISTORY: Fall, pain TECHNIQUE: 2 views right ribs supplemented with a frontal chest FINDINGS: Costochondral cartilage calcification is present. No displaced rib fractures are evident. R ight shoulder repair is evident. No pneumothorax is evident. IMPRESSION: 1. Normal right ribs
--- NOTE | 2017-06-13 16:19 | XR ---
EXAMINATION TYPE: XR Hip RT and AP Pelvis DATE OF EXAM: 06/13/2017 COMPARISON: NONE HISTORY: Pain telephone TECHNIQUE: 2 view right hip FINDINGS: Mild joint space narrowing is present. No acute fractures are evident. IMPRESSION: 1. Mild degenerative joint changes. No acute osseous abnormality is evident.
--- NOTE | 2017-06-13 16:21 | XR ---
EXAMINATION TYPE: XR shoulder limited RT DATE OF EXAM: 06/13/2017 COMPARISON: NONE HISTORY: Pain, fall TECHNIQUE: Shoulder examined in 3 views FINDINGS: The humeral head articulates with the glenoid. The acromio-clavicular junction is normal. No acute fractures or dislocations are evident. A follow up study can be performed 7-10 days from acute trauma for continued pain. IMPRESSION: 1. Normal postsurgical right shoulder. No acute fractures are evident.
[2017-06-13 16:56] VITALS: BP 160/67; PULSE 88; TEMP 97.9
--- NOTE | 2017-06-16 06:55 | CDI ---
Documentation Clarification OP Dear Emmanuel Jimenez, PAC Please do addendum to ED report for missing specific site of contusion Thank you, [employer] If you have any questions, please contact [facility] at [phone] [facility]
== END 2017-06-13 16:56 | disposition home or self-care (01) ==
LOC: EC 14:48
DX: S20.211A Contusion of right front wall of thorax, initial encounter (principal); S40.011A Contusion of right shoulder, initial encounter; I10 Essential (primary) hypertension; Z86.73 Personal history of transient ischemic attack (TIA), and cerebral infarction without residual deficits; Z98.890 Other specified postprocedural states; Z87.891 Personal history of nicotine dependence; Z79.899 Other long term (current) drug therapy; Z88.5 Allergy status to narcotic agent; Z88.6 Allergy status to analgesic agent; W01.198A Fall on same level from slipping, tripping and stumbling with subsequent striking against other object, initial encounter; Y93.01 Activity, walking, marching and hiking; Y92.009 Unspecified place in unspecified non-institutional (private) residence as the place of occurrence of the external cause
CPT/HCPCS: 73502; 93005; 99283

== ENCOUNTER 2017-12-09 15:56 | Observation (INO) | payer MEDICARE ==
[2017-12-09] MEDS ORDERED: ASPIRIN 81 MG PO STA (16:18)
[2017-12-09] MEDS ORDERED: NITROGLYCERIN OINT 1 INCH/GM PACKET TOPICAL STA (16:18)
[2017-12-09 16:44] LABS: Basophils % (A) 0 %; Eosinophils # (A) 0.1 k/uL (0-0.7); Eosinophils % (A) 1 %; HCT 39.3 % (34.0-46.0); HGB 13.2 gm/dL (11.4-16.0); Lymphocytes # (A) 1.6 k/uL (1.0-4.8); Lymphocytes % (A) 20 %; MCH 29.3 pg (25.0-35.0); MCHC 33.5 g/dL (31.0-37.0); MCV 87.6 fL (80.0-100.0); Mean Platelet Volume 7.6; Monocytes # (A) 0.5 k/uL (0-1.0); Monocytes % (A) 6 %; Neutrophils # (A) 5.4 k/uL (1.3-7.7); Neutrophils % (A) 70 %; Platelet Count 343 k/uL (150-450); RBC 4.49 m/uL (3.80-5.40); RDW 13.8 % (11.5-15.5); WBC 7.7 k/uL (3.8-10.6)
[2017-12-09 17:03] LABS: Creatine Kinase 35 U/L (30-135)
--- NOTE | 2017-12-09 17:05 | XR ---
EXAMINATION TYPE: XR chest 2V DATE OF EXAM: 12/09/2017 COMPARISON: 06/13/2017 HISTORY: 77-year-old female with chest pain TECHNIQUE: Frontal and lateral views FINDINGS: Heart normal size. Atherosclerotic arch calcifications. Mild diffuse interstitial prominence is uncha nged and has a chronic appearance. Some hazy density at the cardiac apex suggests epicardial fat pad. No consolidation or pleural effusion. Right total shoulder arthroplasty partially visualized. Cholecystectomy clips. IMPRESSION: Chronic changes without acute cardiopulmonary process.
[2017-12-09 17:06] LABS: Partial Thromboplastin Time 21.8 sec (22.0-30.0)
[2017-12-09 17:16] LABS: Albumin 4.2 g/dL (3.5-5.0); Calcium 10.3 mg/dL (8.4-10.2); Creatine Kinase MB 0.6 ng/mL (0.0-2.4); Magnesium 1.9 mg/dL (1.6-2.3); Potassium 3.8 mmol/L (3.5-5.1); Total Bilirubin 0.9 mg/dL (0.2-1.3); Total Protein 7.3 g/dL (6.3-8.2); Troponin I <0.012 ng/mL (0.000-0.034)
--- NOTE | 2017-12-09 17:41 | ED ---
Chest Pain HPI - General Chief Complaint: Chest Pain Stated Complaint: chest pain Time Seen by Provider: 12/09/17 16:11 Source: patient, family Mode of arrival: ambulatory Limitations: language barrier, physical limitation - History of Present Illness Initial Comments: This 77-year-old white female presents with daughter with the complaint of some chest pain. It initially started this morning and lasted several hours and resolved. It then came back again shortly prior to arrival. She describes as a pressure sensation in the midsternal region and left chest that radiates down to her bilateral arms. She denies any shortness of breath. She denies any leg pain or swelling or history DVT or PE. She denies any known coronary artery disease or previous heart catheterizations or stress tests. The daughter relates that she is scheduled for a Holter monitor on Thursday as well as a bilateral carotid Doppler. No other complaints or modifying factors. She apparently has had this several times previously. - Related Data Home Medications Medication Instructions Recorded Confirmed Atorvastatin [Lipitor] 40 mg PO DAILY 04/30/17 12/09/17 Cholecalciferol [Vitamin D3] 1,000 unit PO DAILY 04/30/17 12/09/17 Fish Oil/[place] 3 1200mg/360mg 1 cap PO DAILY 04/30/17 12/09/17 Losartan/Hydrochlorothiazide 1 tab PO DAILY 04/30/17 12/09/17 [Losartan-Hctz 100-25 mg Tab] Omeprazole [PriLOSEC] 20 mg PO DAILY 04/30/17 12/09/17 Allergies Allergy/AdvReac Type Severity Reaction Status Date / Time acetaminophen [From [place]] Allergy Hallucinati Verified 12/09/17 17:03 ons hydrocodone [From [place]] Allergy Hallucinati Verified 12/09/17 17:03 ons Review of Systems ROS Statement: Those systems with pertinent positive or pertinent negative responses have been documented in the HPI. ROS Other: All systems not noted in ROS Statement are negative. Past Medical History Past Medical History: CVA/TIA, Hypertension Additional Past Medical History / Comment(s): several strokes per daughter History of Any Multi-Drug Resistant Organisms: None Reported Past Surgical History: Appendectomy, Hysterectomy Additional Past Surgical History / Comment(s): left ankle surgery, right shoulder Past Anesthesia/Blood Transfusion Reactions: No Reported Reaction Past Psychological History: Anxiety Smoking Status: Former smoker Past Alcohol Use History: Rare Past Drug Use History: None Reported - Past Family History Father Family Medical History: No Reported History Mother Family Medical History: No Reported History Daughter(s) Family Medical History: Fibromyalgia General Exam - General Exam Comments Initial Comments: GENERAL: The patient is well nourished and well hydrated. VITAL SIGNS: Heart rate, blood pressure, respiratory rate reviewed as recorded in nurse's notes. EYES: Pupils are round and reactive. Extraocular movements are intact. No conjunctival / lid redness or swelling. ENT: No external evidence of injury, swelling, or ecchymosis. Airway is patent. Throat is clear. NECK: Nontender. No swelling or evidence of injury. No subcutaneous emphysema. Trachea is midline. No thyroid mass. HEART: Regular rate and rhythm. Good peripheral pulses. LUNGS/CHEST: Breath sounds clear and equal bilaterally. No rales, rhonchi, or wheezes. No ecchymosis, subcutaneous emphysema, or tenderness. ABDOMEN: Abdomen soft without tenderness. No palpable masses or organomegaly. No peritoneal signs. No abdominal wall swelling or ecchymosis. EXTREMITIES: No extremity tenderness. Normal muscle tone and function. No thoracolumbar tenderness. NEUROLOGIC: Sensation is grossly intact. Cranial nerve exam reveals face is symmetrical, tongue is midline, speech is clear. SKIN: No abrasions or ecchymosis is noted. No induration or masses noted. PSYCHIATRIC: Alert and oriented. Appropriate behavior and judgment. Limitations: language barrier, physical limitation Course Vital Signs 12/09/17 12/09/17 12/09/17 16:35 17:08 17:36 Temperature 98.1 F Pulse Rate 61 64 85 Respiratory 19 19 18 Rate Blood Pressure 167/79 157/72 177/82 O2 Sat by Pulse 97 100 99 Oximetry Chest Pain [facility] The patient was seen and examined. All diagnostics were reviewed. The EKG shows a normal sinus rhythm at a rate of 63. There is no acute ST-T wave changes identified. The ME interval is 184, QRS duration is 76, and QTC intervals 433. The patient does receive an aspirin as well as some Nitropaste. The chest x-ray does not show any acute processes. The laboratory was all essentially within normal limits. The possibility of acute coronary syndrome certainly is possible and it is felt as though patient be admitted for further workup. The case is discussed with Dr. Hathaway and he is agreeable to admission as well. Disposition Clinical Impression: Unstable angina pectoris, Chest pain Disposition: [facility] Condition: Fair Is patient prescribed a controlled substance at discharge?: No Referrals: Emmanuel Dunaway DO [Primary Care Provider] - 1-2 days Time of Disposition: 17:45 Decision Date: 12/09/17 Decision Time: 17:45
[2017-12-09] MEDS ORDERED: NITROGLYCERIN SL TABS 0.4 MG TAB SUBLINGUAL PRN (17:46)
[2017-12-09 21:23] VITALS: BMI 21.9
[2017-12-09] MEDS ORDERED: ATORVASTATIN 40 MG TAB PO SCH (21:30)
[2017-12-09] MEDS ORDERED: ACETAMINOPHEN TAB 500 MG TAB PO PRN (21:31)
[2017-12-09] MEDS: METOPROLOL TARTRATE 25 MG TAB PO SCH (21:36)
--- NOTE | 2017-12-09 21:39 | HP ---
HISTORY AND PHYSICAL DATE OF SERVICE: 12/09/2017 CHIEF COMPLAINT: Chest pain. HISTORY OF PRESENT ILLNESS: This 77-year-old woman who had a past medical history of CVA, hypertension, history of several strokes, being followed by Dr. Dunaway in the outpatient setting complains of chest pain. The chest pain was felt in the anterior part of the chest in the morning and resolved, but subsequently recurred again. Because of increasing difficulties, the pain is also radiating to bilateral both arms, the patient was taken to [facility] and admitted for further evaluation and treatment. There is no history of fever, rigors. No history of headache, loss of consciousness, seizures. The troponins are negative and the patient admitted for further evaluation and treatment. There is no history of any fever, rigors chills at this time. PAST MEDICAL HISTORY: History of CVA, TIA, hypertension, history of strokes, appendectomy, hysterectomy. Patient is also seen followed by Dr. Monroe and outpatient evaluation for possible Holter monitoring is also being planned in the near future, according to the family. HOME MEDICATIONS: 1. Prilosec 20 mg p.o. daily. 2. Fish oil 1 p.o. daily. 3. Vitamin D3 1000 p.o. daily. 4. Lipitor 40 mg p.o. daily. 5. Losartan/hydrochlorothiazide 1 tablet p.o. daily. 6. Lipitor 40 mg p.o. daily. ALLERGIES: [place]. FAMILY HISTORY: No history of heart disease or strokes in the family. SOCIAL HISTORY: Previous history of smoking. No history of alcohol or any drug use. REVIEW OF SYSTEMS: ENT: Diminished hearing, diminished vision. CARDIOVASCULAR: As mentioned earlier. RESPIRATORY: As mentioned earlier. GI: No nausea or vomiting. : No dysuria. NERVOUS: As mentioned earlier. ALLERGY/IMMUNOLOGY: No asthma or hay fever. MUSCULOSKELETAL: As mentioned earlier. HEMATOLOGY/ONCOLOGY: No history of anemia. ENDOCRINE: No history of diabetes, hypothyroidism. CONSTITUTIONAL: As mentioned earlier. DERMATOLOGY: Negative. RHEUMATOLOGY: Negative. PSYCHIATRY: As mentioned earlier. PHYSICAL EXAM: Alert, oriented x3. Pulse is 61, blood pressure 106/70, respirations 19, temperature 98.4, pulse ox 98% on 2L. HEENT: Conjunctivae normal. NECK: No jugular venous distention. CARDIOVASCULAR: S1, S2 muffled. RESPIRATORY: Breath sounds diminished in the bases. A few scattered rhonchi. No crackles. ABDOMEN: Soft, nontender. LEGS: No edema. NERVOUS SYSTEM: Mild diffuse weakness. Some tremors also present. LYMPHATIC: No lymphadenopathy in neck or axillae. SKIN: No ulcer, rash or bleeding. LABS: CBC within normal limits and calcium 10.3. ASSESSMENT: 1. Chest pain, possible unstable angina. 2. Negative stress test in April 2017. 3. History of cerebrovascular accident, transient ischemic attack. 4. Hypertension. 5. History of multiple strokes. 6. History of appendectomy. 7. History of anxiety. 8. Remote history of nicotine dependence. RECOMMENDATIONS AND DISCUSSION: In this 77-year-old woman who presented with multiple complex medical issues, will monitor the patient closely. Resume the current home medications. Continue angina protocol. Cardiology evaluation. Guarded prognosis because of multiple complex medical issues. Further recommendations to follow. A copy of the dictation will be forwarded to Dr. Dunaway, who is the primary physician. LUCYL / RODN: [id number] /
[2017-12-09 23:14] LABS: Creatine Kinase MB 0.5 ng/mL (0.0-2.4); Troponin I 0.012 ng/mL (0.000-0.034)
[2017-12-09] MEDS: NITROGLYCERIN OINT 1 INCH/GM PACKET TOPICAL SCH (23:27)
[2017-12-10 04:38] LABS: Cholesterol 134 mg/dL (<200); HDL Cholesterol 76 mg/dL (40-60); LDL Cholesterol,Calculated 34 mg/dL (0-99); Triglycerides 120 mg/dL (<150)
[2017-12-10 05:07] LABS: Creatine Kinase MB 0.5 ng/mL (0.0-2.4); Troponin I 0.014 ng/mL (0.000-0.034)
[2017-12-10] MEDS ORDERED: PANTOPRAZOLE 40 MG TABLET PO SCH (07:30)
[2017-12-10 07:38] VITALS: RESP 16
[2017-12-10] MEDS ORDERED: ENOXAPARIN 40 MG/0.4 ML SYRINGE SQ SCH (09:00)
[2017-12-10] MEDS ORDERED: ATORVASTATIN 40 MG TAB PO SCH (09:00)
[2017-12-10] MEDS ORDERED: ASPIRIN 325 MG TAB PO SCH ×2 (09:00)
[2017-12-10] MEDS ORDERED: LOSARTAN-HCTZ 50-12.5 MG 1 EACH TAB PO SCH (09:00)
[2017-12-10] MEDS ORDERED: [UNRECOGNIZED DRUG - OTHER] PO SCH (09:00)
[2017-12-10] MEDS ORDERED: FISH OIL PO SCH (09:00)
[2017-12-10] MEDS ORDERED: SODIUM CHLORIDE 0.9% 1,000 ML in EMPTY BAG 1 BAG IV ONE (09:41)
[2017-12-10] MEDS ORDERED: ALPRAZolam 0.25 MG TAB PO PRN (09:41)
[2017-12-10] MEDS ORDERED: ALPRAZolam 0.5 MG TAB PO PRN (09:41)
--- NOTE | 2017-12-10 10:17 | P.CRDCN ---
History of Present Illness Consult date: 12/10/17 History of present illness: Mrs. Ochoa is a pleasant 77-year-old female past medical history significant for hypertension, CVA, former tobacco use and memory impairment. She has no history of coronary artery disease. She follows with Dr. Monroe in the office. We have been asked to see her for complaints of chest pain She states she woke up yesterday morning and walked to the bathroom. After getting back into bed she developed a discomfort in her chest that went from shoulder to shoulder with radiation to both arms. She denies radiation into back, neck or jaw. With associated nausea and mildly lightheaded with the pain with no vomiting. The pain lasted just a few minutes and subsided on its own. denies sob , palpitations, vomiting or diaphoresis. She is somewhat of a poor historian. The daughter is at the bedside and relates that she has complained several times of intermittent chest pain and suffers with dizziness frequently as well. EKG reveals sinus mechanism with no acute ST or T-wave abnormalities. Telemetry tracings have been unremarkable. Chest xray negative for an acute cardiopulmonary process. Laboratory data reviewed, hemoglobin 13.2, platelets 343, potassium 3.8, sodium 142, magnesium 1.9, creatinine 0.8, GFR 72, cardiac enzymes negative 3, LDL 34. Current cardiac medications include losartan/hydrochlorothiazide 100/25 mg daily and atorvastatin 40 mg daily. Most recent stress test performed April 2017 with a dobutamine stress echo which was negative for stress-induced cardiac ischemia. Review of Systems At the time of my exam: Patient is somewhat of a poor historian. She denies all complaints. CONSTITUTIONAL: Denies fever. Denies chills. EYES: Denies blurred vision. Denies vision changes. Denies eye pain. EARS, NOSE, MOUTH & THROAT: Denies headache. Denies sore throat. Denies ear pain. CARDIOVASCULAR: Denies chest pain. Denies shortness of breath. Denies orthopnea. Denies PND. Denies palpitations. RESPIRATORY: Denies cough. GASTROINTESTINAL: Denies abdominal pain. Denies diarrhea. Denies constipation. Denies nausea. Denies vomiting. MUSCULOSKELETAL: Denies myalgias. INTEGUMENTARY: Denies pruitis. Denies rash. NEUROLOGIC: Denies numbness. Denies tingling. Denies weakness. PSYCHIATRIC: Denies anxiety. Denies depression. ENDOCRINE: Denies fatigue. Denies weight change. Denies polydipsia. Denies polyurina. GENITOURINARY: Denies burning, hematuria or urgency with micturation. HEMATOLOGIC: Denies history of anemia. Denies bleeding. Past Medical History Past Medical History: CVA/TIA, Hypertension Additional Past Medical History / Comment(s): several strokes per daughter History of Any Multi-Drug Resistant Organisms: None Reported Past Surgical History: Appendectomy, Hysterectomy Additional Past Surgical History / Comment(s): left ankle surgery - fused, right shoulder Past Anesthesia/Blood Transfusion Reactions: No Reported Reaction Smoking Status: Former smoker - Past Family History Father Family Medical History: No Reported History Mother Family Medical History: No Reported History Daughter(s) Family Medical History: Fibromyalgia Medications and Allergies Home Medications Medication Instructions Recorded Confirmed Type Atorvastatin [Lipitor] 40 mg PO HS 04/30/17 12/09/17 History Fish Oil/[place] 3 1200mg/360mg 1 cap PO DAILY 04/30/17 12/09/17 History Losartan/Hydrochlorothiazide 1 tab PO DAILY 04/30/17 12/09/17 History [Losartan-Hctz 100-25 mg Tab] Omeprazole [PriLOSEC] 20 mg PO DAILY 04/30/17 12/09/17 History Acetaminophen Tab [Tylenol Tab] 500 mg PO Q6H PRN 12/09/17 12/09/17 History Allergies Allergy/AdvReac Type Severity Reaction Status Date / Time hydrocodone [From [place]] Allergy Hallucinati Verified 12/09/17 17:03 ons Physical Exam Vitals: Vital Signs Temp Pulse Pulse Resp BP BP Pulse Ox 12/10/17 07:05 98.6 F 76 16 120/73 92 L 12/10/17 04:00 97.6 F 65 18 126/63 97 12/09/17 23:38 97.5 F L 64 18 108/52 99 12/09/17 20:55 61 16 153/73 99 12/09/17 20:00 97.7 F 72 18 158/85 97 12/09/17 18:45 98.5 F 61 19 164/77 98 12/09/17 17:36 85 18 177/82 99 12/09/17 17:08 64 19 157/72 100 12/09/17 16:35 98.1 F 61 19 167/79 97 Intake and Output 12/09/17 12/10/17 12/10/17 22:59 06:59 14:59 Other: # Voids 1 # Bowel Movements 1 Weight 50.8 kg Blood pressure 120/73 heart rate 76 afebrile maintaining oxygen saturation on room air GENERAL: This is a 77-year-old [place] female in no apparent distress at the time of my examination. HEENT: Head is atraumatic, normocephalic. Pupils are equal, round. Sclerae anicteric. Conjunctivae are clear. Mucous membranes of the mouth are moist. Neck is supple. There is no jugular venous distention. No carotid bruit is heard. LUNGS: Clear to auscultation no wheezes, rales or rhonchi. No chest wall tenderness is noted on palpation or with deep breathing. HEART: Regular rate and rhythm without murmurs, rubs or gallops. S1 and S2 heard. ABDOMEN: Soft, nontender. Bowel sounds are heard. No organomegaly noted. EXTREMITIES: No evidence of peripheral edema and no calf tenderness noted. VASCULAR: Radial and dorsalis pedis pulses palpated, no evidence of clubbing. NEUROLOGIC: Patient is awake, alert and oriented 2-3. Results 12/09/17 16:21 12/09/17 16:21 Cardiac Enzymes 12/09/17 12/09/17 12/09/17 Range/Units 16:21 16:21 22:18 AST 27 (14-36) U/L CK-MB (CK-2) 0.6 0.5 (0.0-2.4) ng/mL Troponin I <0.012 0.012 (0.000-0.034) ng/mL 12/10/17 Range/Units 03:46 AST (14-36) U/L CK-MB (CK-2) 0.5 (0.0-2.4) ng/mL Troponin I 0.014 (0.000-0.034) ng/mL Coagulation 12/09/17 Range/Units 16:21 PT 10.0 (9.0-12.0) sec APTT 21.8 L (22.0-30.0) sec Lipids 12/10/17 Range/Units 03:46 Triglycerides 120 (<150) mg/dL Cholesterol 134 (<200) mg/dL HDL Cholesterol 76 H (40-60) mg/dL CBC 12/09/17 Range/Units 16:21 WBC 7.7 (3.8-10.6) k/uL RBC 4.49 (3.80-5.40) m/uL Hgb 13.2 (11.4-16.0) gm/dL Hct 39.3 (34.0-46.0) % Plt Count 343 (150-450) k/uL Comprehensive Metabolic Panel 12/09/17 Range/Units 16:21 Sodium 142 (137-145) mmol/L Potassium 3.8 (3.5-5.1) mmol/L Chloride 99 (98-107) mmol/L Carbon Dioxide 28 (22-30) mmol/L BUN 20 H (7-17) mg/dL Creatinine 0.80 (0.52-1.04) mg/dL Glucose 89 (74-99) mg/dL Calcium 10.3 H (8.4-10.2) mg/dL AST 27 (14-36) U/L ALT 35 (9-52) U/L Alkaline Phosphatase 63 (38-126) U/L Total Protein 7.3 (6.3-8.2) g/dL Albumin 4.2 (3.5-5.0) g/dL Current Medications Generic Name Dose Route Start Last Admin Trade Name Freq PRN Reason Stop Dose Admin Acetaminophen 500 mg 12/09/17 21:31 12/09/17 21:36 Tylenol Tab PO 500 mg Q4HR PRN Administration Fever and/ or Mild Pain Aspirin 325 mg 12/10/17 09:00 Aspirin PO DAILY [facility] Atorvastatin Calcium 40 mg 12/09/17 21:30 12/09/17 21:36 Lipitor PO 40 mg HS [facility] Administration Cholecalciferol 1,000 unit 12/10/17 12:00 Vitamin D3 PO 1200 [facility] Enoxaparin Sodium 40 mg 12/10/17 09:00 Lovenox SQ DAILY [facility] HCTZ/Losartan Potassium 2 each 12/10/17 09:00 Hyzaar 50-12.5 PO DAILY [facility] Metoprolol Tartrate 25 mg 12/09/17 21:00 12/09/17 21:36 Lopressor PO 25 mg BID [facility] Administration Nitroglycerin 1 inch 12/10/17 00:00 12/09/17 23:27 Nitro-Bid Oint TOPICAL Not Given Q6HR ROBBIE Nitroglycerin 0.4 mg 12/09/17 17:46 Nitrostat SUBLINGUAL Q5M PRN Chest Pain Pantoprazole Sodium 40 mg 12/10/17 07:30 Protonix PO AC-BRKFST ROBBIE Intake and Output 12/09/17 12/10/17 12/10/17 22:59 06:59 14:59 Other: # Voids 1 # Bowel Movements 1 Weight 50.8 kg 12/09/17 16:21 12/09/17 16:21 Assessment and Plan Assessment: ASSESSMENT 1. Unstable angina 2. Hypertension 3. CVA 4. Anxiety 5. Former tobacco use PLAN Due to her poor ability to communicate effectively we have discussed with the daughter in detail that her symptoms may not be being relayed properly. We recommend proceeding with cardiac catheterization to fully assess the coronary arteries. I have discussed the risks, benefits and alternative therapies for the above-mentioned procedure and for both sedation/analgesia as well as necessary blood product administration, if indicated, as they pertain to this patient. The patient has indicated understanding and acceptance of the risks and procedures discussed. Questions have been answered appropriately and the patient as well as her daughter like to proceed with cardiac catheterization this morning. She has been NPO since midnight and her renal function is normal. Further recommendations will be follow based on cath findings. Thank you kindly for this consultation. The above impression and plan of care have been discussed and directed by the signing physician. Fabiola Rivera, nurse practitioner, acting as scribe for signing physician.
--- NOTE | 2017-12-10 10:31 | ECHOF ---
Referral Reason:cp MEASUREMENTS -------- HEIGHT: 152.4 cm WEIGHT: 50.3 kg BP: 126/63 RVIDd: 2.6 cm (< 3.3) IVSd: 1.1 cm (0.6 - 1.1) LVIDd: 4.0 cm (3.9 - 5.3) LVPWd: 1.1 cm (0.6 - 1.1) IVSs: 1.4 cm LVIDs: 2.7 cm LVPWs: 1.4 cm LAESV Index (A-L): 25.89 ml/m Ao Diam: 2.9 cm (2.0 - 3.7) AV Cusp: 2.1 cm (1.5 - 2.6) LA Diam: 3.6 cm (2.7 - 3.8) EPSS: 0.3 cm MV E Devendra: 0.78 m/s MV DecT: 266 ms MV A Devendra: 1.01 m/s MV E/A Ratio: 0.78 RAP: 5.00 mmHg RVSP: 26.36 mmHg MV EF SLOPE: 75.19 mm/s (70 - 150) MV EXCURSION: 1.32 cm (> 18.000) FINDINGS -------- Sinus rhythm. This was a technically adequate study. The left ventricular size is normal. There is borderline concentric left ventricular hypertrophy. Overall left ventricular systolic function is normal with, an EF between 55 - 60 %. The right ventricle is normal in size and function. Normal LA size by volume 22+/-6 ml/m2. The right atrium is normal in size. Aortic valve is trileaflet and is mildly thickened. There is no evidence of aortic regurgitation. There is no evidence of aortic stenosis. The mitral valve leaflets are mildly thickened. There is trace to mild mitral regurgitation. Mild tricuspid regurgitation present. Right ventricular systolic pressure is normal at < 35 mmHg. There is no evidence of pulmonary hypertension. Trace/mild (physiologic) pulmonic regurgitation. The aortic root size is normal. IVC Not well visulized. There is no pericardial effusion. CONCLUSIONS -------- 1. Sinus rhythm. 2. This was a technically adequate study. 3. The left ventricular size is normal. 4. There is borderline concentric left ventricular hypertrophy. 5. Overall left ventricular systolic function is normal with, an EF between 55 - 60 %. 6. Normal LA size by volume 22+/-6 ml/m2. 7. Aortic valve is trileaflet and is mildly thickened. 8. The mitral valve leaflets are mildly thickened. 9. There is trace to mild mitral regurgitation. 10. Mild tricuspid regurgitation present. 11. Right ventricular systolic pressure is normal at < 35 mmHg. 12. There is no evidence of pulmonary hypertension. 13. Trace/mild (physiologic) pulmonic regurgitation. 14. The aortic root size is normal. 15. IVC Not well visulized. 16. There is no pericardial effusion. SPORT INTERN: Kelvin Henning RDCS
[2017-12-10] MEDS ORDERED: SODIUM CHLORIDE 0.9% 1,000 ML IV ONE (10:36)
[2017-12-10] MEDS: MIDAZOLAM 2 MG/2 ML VIAL IVP ONE ×2 (10:43→10:49)
[2017-12-10] MEDS ORDERED: LIDOCAINE 2% INJ 20 MG/ML SQ ONE (10:46)
[2017-12-10] MEDS ORDERED: fentaNYL (PF) 50 MCG/ML 2 ML AMP IVP ONE (10:49)
[2017-12-10] MEDS ORDERED: IOPAMIDOL-370 125ML BTL INJ ONE (11:01)
[2017-12-10] MEDS ORDERED: ISOSORBIDE MONONITRATE ER 30 MG TAB.ER.24H PO SCH (11:15)
--- NOTE | 2017-12-10 11:37 | CC ---
CARDIAC CATHETERIZATION REPORT INDICATION: Unstable angina. PROCEDURE NOTE: After obtaining informed consent, left heart catheterization and coronary angiogram were performed via the right femoral artery using standard Toribio catheters. Patient tolerated the procedure well without any obvious immediate complications. A femoral angiogram was done and Angio-Seal was deployed for hemostasis. Patient received moderate conscious sedation and total sedation time was 15 minutes. The right coronary artery was engaged using a Toribio catheter. FINDINGS: 1. HEMODYNAMICS: Left ventricular end-diastolic pressure is 12-14 mm, there is no significant gradient across aortic valve. 2. LEFT VENTRICULOGRAM: Left ventriculogram is not performed. 3. ANGIOGRAPHIC DATA: 4. LEFT MAIN CORONARY ARTERY: Left main coronary artery appears calcified but is free of significant stenosis. Divides into left anterior descending coronary artery and circumflex coronary artery. 5. 6. LAD shows a mild atherosclerotic plaque in its midportion, just past the origin of a diagonal branch. 7. 8. Circumflex coronary artery shows a 40% stenosis. 9. 10.Right coronary artery is a small nondominant vessel and is free of significant stenosis. CONCLUSION: Mild nonobstructive coronary artery disease involving left anterior descending artery and circumflex coronary artery. PLAN: I reviewed angiographic data with the patient and advised her on medical therapy and risk factor modification. I am going to put her on nitrates for possible vasospastic angina. MMODL / IJN: [id number] /
[2017-12-10] MEDS ORDERED: CHOLECALCIFEROL 1,000 UNIT TAB PO SCH (12:00)
[2017-12-10] MEDS: NITROGLYCERIN OINT 1 INCH/GM PACKET TOPICAL SCH ×2 (15:25→17:30)
[2017-12-10] MEDS: METOPROLOL TARTRATE 25 MG TAB PO SCH (15:26)
[2017-12-10 16:13] VITALS: BP 108/57; PULSE 66; TEMP 98
--- NOTE | 2017-12-11 00:49 | DS ---
DISCHARGE SUMMARY FINAL DIAGNOSES: 1. Chest pain, possible unstable angina with [id number] coronary artery disease, status post cardiac catheterization. 2. History of cerebrovascular accident/transient ischemic attack. 3. Hypertension. 4. Multiple strokes. 5. History of appendectomy. 6. Anxiety. 7. Remote history of nicotine dependence. DISCHARGE DISPOSITION: The patient is being discharged in stable condition with guarded prognosis. HISTORY OF PRESENT ILLNESS: This 77-year-old woman with a past history of multiple medical problems including chest pain, Cardiology performed a cardiac catheterization that showed [id number] coronary artery disease and showed a circumflex of 40% stenosis. LAD shows atherosclerotic plaque, very mild and the patient was treated medically. Cardiology saw the patient. On exam, vitals are stable. CARDIOVASCULAR: S1 and S2. ABDOMEN: Soft. NERVOUS SYSTEM: No focal deficits. DISCHARGE MEDICATIONS AND ADVICE: 1. Diet is cardiac diet. 2. Activity until follow up. 3. Follow up with Dr. Dunaway in 2-3 days. 4. Follow up with Dr. Monroe as advised. MEDICATIONS: 1. Tylenol 500 mg q.6h p.r.n. 2. Aspirin 81 mg p.o. daily. 3. Lipitor 40 mg q.h.s. 4. Fish oil 1 p.o. daily. 5. Imdur ER 30 mg p.o. daily. 6. Losartan hydrochlorothiazide 1 p.o. daily. 7. Prilosec 20 mg p.o. daily. Once again, the patient will be discharged in a stable condition with a guarded prognosis. MMODL / IJN: [id number] /
== END 2017-12-10 18:55 | disposition home or self-care (01) ==
LOC: EC 15:56 → 3OBS 17:46
PROVIDERS: ADMIT Hospitalist; ATTEND Hospitalist
DX: R07.89 Other chest pain (principal); I25.110 Atherosclerotic heart disease of native coronary artery with unstable angina pectoris; I10 Essential (primary) hypertension; F41.9 Anxiety disorder, unspecified; Z79.899 Other long term (current) drug therapy; Z90.49 Acquired absence of other specified parts of digestive tract; Z90.710 Acquired absence of both cervix and uterus; Z88.5 Allergy status to narcotic agent; Z88.6 Allergy status to analgesic agent; Z86.73 Personal history of transient ischemic attack (TIA), and cerebral infarction without residual deficits; Z87.891 Personal history of nicotine dependence; Z82.69 Family history of other diseases of the musculoskeletal system and connective tissue
CPT/HCPCS: 99285 ×2; 36415; 93005; 93306; 93458; 80061; 80053; 82550 ×2; 82553 ×2; 83735; 84484 ×2; 85025; 85610; 85730; 71046; G0378 ×2; C1760; C1894; C1769; J2001; J2250; J3010; Q9967

== ENCOUNTER 2018-03-13 13:47 | Emergency (ER) | payer MEDICARE ==
[2018-03-13 15:09] LABS: Albumin 4.1 g/dL (3.5-5.0); Calcium 9.7 mg/dL (8.4-10.2); Potassium 4.2 mmol/L (3.5-5.1); Total Protein 6.7 g/dL (6.3-8.2)
[2018-03-13 15:16] VITALS: RESP 17
[2018-03-13 15:17] LABS: Basophils % (A) 0 %; Eosinophils # (A) 0.1 k/uL (0-0.7); Eosinophils % (A) 0 %; HCT 40.7 % (34.0-46.0); HGB 13.3 gm/dL (11.4-16.0); Lymphocytes # (A) 0.9 k/uL (1.0-4.8); Lymphocytes % (A) 9 %; MCH 29.7 pg (25.0-35.0); MCHC 32.5 g/dL (31.0-37.0); MCV 91.3 fL (80.0-100.0); Mean Platelet Volume 7.2; Monocytes # (A) 0.5 k/uL (0-1.0); Monocytes % (A) 4 %; Neutrophils # (A) 9.3 k/uL (1.3-7.7); Neutrophils % (A) 86 %; Platelet Count 338 k/uL (150-450); RBC 4.46 m/uL (3.80-5.40); RDW 13.8 % (11.5-15.5); WBC 10.9 k/uL (3.8-10.6)
[2018-03-13 15:23] LABS: D-Dimer 0.59 mg/L FEU (<0.60)
[2018-03-13 15:29] LABS: Creatine Kinase <20 U/L (30-135)
--- NOTE | 2018-03-13 15:36 | XR ---
EXAMINATION TYPE: XR chest 2V DATE OF EXAM: 03/13/2018 COMPARISON: Prior chest x-ray dated 12/10/2015. HISTORY: Chest pain TECHNIQUE: Frontal and lateral views of the chest are obtained. FINDINGS: The trachea is in the midline. The patient is partially rotated with monitor leads superim posing the patient chest. Chronic interstitial densities radiating from the hilar regions with peribr onchial thickening. Similar findings to the prior exam. No pneumothorax or significant pleural effusi on. The scapulas are partially obscuring the upper lung doe. IMPRESSION: Chronic interstitial densities and peribronchial thickening that was already present on the prior exa m without pneumothorax, significant pleural effusions or acute parenchymal infiltrate.
[2018-03-13 15:42] LABS: Creatine Kinase MB 0.3 ng/mL (0.0-2.4); Troponin I 0.014 ng/mL (0.000-0.034)
[2018-03-13 16:26] LABS: Partial Thromboplastin Time 20.4 sec (22.0-30.0)
--- NOTE | 2018-03-13 16:43 | ED ---
General Adult HPI - General Chief complaint: Chest Pain Stated complaint: chest pain Source: patient Mode of arrival: wheelchair Limitations: no limitations - History of Present Illness Initial comments: Dictation was produced using [employer] dictation software. please excuse any grammatical, word or spelling errors. Chief Complaint: 77-year-old female past medical history of coronary artery disease, CVA, hypertension presents with chest pain with radiation to the neck. History of Present Illness: History is limited by patient's mental status. Patient has mild learning disability. She is unable to communicate thoughtfully at baseline. She presents accompanied by her daughter. Daughter has been taking care of patient for the last 6 years. Was brought to the emergency department by daughter for persistent chest pain. She was seen to be clutching her chest on multiple occasions. Patient able to communicate that her chest pain radiates to her left neck. Patient was seen and evaluated by sander hand here back in November of this year. Cardiac cath was performed and patient was identified to have coronary artery disease however she wasn't amenable to cardiology intervention. Patient is unable to explain detail what her symptoms started. The ROS documented in this emergency department record has been reviewed and confirmed by me. Those systems with pertinent positive or negative responses have been documented in the HPI. All other systems are other negative and/or noncontributory. - Related Data Home Medications Medication Instructions Recorded Confirmed Atorvastatin [Lipitor] 40 mg PO DAILY 04/30/17 03/13/18 Losartan/Hydrochlorothiazide 1 tab PO DAILY 04/30/17 03/13/18 [Losartan-Hctz 100-25 mg Tab] Omeprazole [PriLOSEC] 20 mg PO DAILY 04/30/17 03/13/18 Aspirin 325 mg PO DAILY 03/13/18 03/13/18 Cholecalciferol [Vitamin D3] 1,000 unit PO DAILY 03/13/18 03/13/18 [place]-3 Fatty Acids/Fish Oil [Fish 1 cap PO DAILY 03/13/18 03/13/18 Oil 1,000 mg Softgel] Previous Rx's Medication Instructions Recorded Isosorbide Mononitrate ER [Imdur] 30 mg PO DAILY #30 tab.er.24h 12/10/17 Allergies Allergy/AdvReac Type Severity Reaction Status Date / Time hydrocodone [From [place]] Allergy Hallucinati Verified 03/13/18 15:42 ons Review of Systems ROS Statement: Those systems with pertinent positive or pertinent negative responses have been documented in the HPI. ROS Other: All systems not noted in ROS Statement are negative. Past Medical History Past Medical History: CVA/TIA, Hypertension Additional Past Medical History / Comment(s): several strokes per daughter History of Any Multi-Drug Resistant Organisms: None Reported Past Surgical History: Appendectomy, Hysterectomy Additional Past Surgical History / Comment(s): left ankle surgery - fused, right shoulder Past Anesthesia/Blood Transfusion Reactions: No Reported Reaction Past Psychological History: Anxiety Smoking Status: Former smoker Past Alcohol Use History: None Reported Past Drug Use History: None Reported - Past Family History Father Family Medical History: No Reported History Mother Family Medical History: No Reported History Daughter(s) Family Medical History: Fibromyalgia General Exam - General Exam Comments Initial Comments: PHYSICAL EXAM: General Impression: Alert and oriented x3, mild distress, patient clutching her chest intermittently HEENT: Normocephalic atraumatic, extra-ocular movements intact, pupils equal and reactive to light bilaterally, mucous membranes moist. Cardiovascular: Heart regular rate and rhythm, S1&S2 audible, no murmurs, rubs or gallops Chest: Lungs clear to auscultation bilaterally, no rhonchi, no wheeze, no rales Abdomen: Bowel sounds present, abdomen soft, non-tender, non-distended, no organomegaly Musculoskeletal: Pulses present and equal in all extremities, no peripheral edema Motor: Power 5/5 bilaterally, no focal deficits noted Neurological: CN II-XII grossly intact, no focal motor or sensory deficits noted Skin: Intact with no visualized rashes Psych: Not tested Limitations: no limitations Course Vital Signs 03/13/18 03/13/18 03/13/18 13:53 15:15 16:25 Temperature 98.9 F Pulse Rate 71 67 71 Respiratory 18 17 17 Rate Blood Pressure 158/71 167/74 158/81 O2 Sat by Pulse 96 93 L 92 L Oximetry 03/13/18 03/13/18 18:32 22:23 Temperature 98.1 F Pulse Rate 58 L 79 Respiratory 17 17 Rate Blood Pressure 158/94 155/78 O2 Sat by Pulse 96 98 Oximetry Medical Decision Making - Medical Decision Making ED course: 77-year-old female past medical history of CVA/TIA/ coronary artery disease presents with chest pain with radiation to the neck. Vital signs upon arrival are within acceptable limits. Patient has normal level hypoxia measured at 92 on room air. Mild hypertension 158/81. She is not , nor is she tachycardic. Physical examination is benign however she does appear to be in some distress. Laboratory evaluation obtained. Mild leukocytosis of 10.9. Hemoglobin stable. Coag panel unremarkable. D-dimer is 0.59. Metabolic panel is unremarkable. Cardiac enzymes are negative. EKG does not suggest any signs of cardiac ischemia or STEMI. patient has some Q waves which would indicate possible prior ischemia. EKG not suggestive of right heart strain. Patient is mildly elevated d-dimer. CT angiogram of the head and neck were obtained. Patient can be signed out to oncoming physician for follow-up of CT angios results. EKG Interpretation: A 12 lead EKG was obtained. It was interpreted by myself and attending physician. There is a P wave before every QRS complex. Rate is 67. Rhythm is normal sinus rhythm, ND interval 162, QRS 80, QTc 429, Q waves noted in the high lateral leads no findings to suggest right heart strain.. QT is not prolonged. No ST segment depression or elevation. Overall, this EKG is unremarkable - Lab Data Result diagrams: 03/13/18 14:35 03/13/18 14:35 Lab Results 03/13/18 03/13/18 03/13/18 Range/Units 14:35 14:35 14:35 WBC 10.9 H (3.8-10.6) k/uL RBC 4.46 (3.80-5.40) m/uL Hgb 13.3 (11.4-16.0) gm/dL Hct 40.7 (34.0-46.0) % MCV 91.3 (80.0-100.0) fL MCH 29.7 (25.0-35.0) pg MCHC 32.5 (31.0-37.0) g/dL RDW 13.8 (11.5-15.5) % Plt Count 338 (150-450) k/uL Neutrophils % 86 % Lymphocytes % 9 % Monocytes % 4 % Eosinophils % 0 % Basophils % 0 % Neutrophils # 9.3 H (1.3-7.7) k/uL Lymphocytes # 0.9 L (1.0-4.8) k/uL Monocytes # 0.5 (0-1.0) k/uL Eosinophils # 0.1 (0-0.7) k/uL Basophils # 0.0 (0-0.2) k/uL PT (9.0-12.0) sec INR (<1.2) APTT (22.0-30.0) sec D-Dimer (<0.60) mg/L FEU Sodium 138 (137-145) mmol/L Potassium 4.2 (3.5-5.1) mmol/L Chloride 103 (98-107) mmol/L Carbon Dioxide 26 (22-30) mmol/L Anion Gap 9 mmol/L BUN 20 H (7-17) mg/dL Creatinine 0.90 (0.52-1.04) mg/dL Est GFR (CKD-EPI)AfAm 72 (>60 ml/min/1.73 sqM) Est GFR (CKD-EPI)NonAf 63 (>60 ml/min/1.73 sqM) Glucose 87 (74-99) mg/dL Calcium 9.7 (8.4-10.2) mg/dL Magnesium 2.0 (1.6-2.3) mg/dL Total Bilirubin 1.0 (0.2-1.3) mg/dL AST 28 (14-36) U/L ALT 43 (9-52) U/L Alkaline Phosphatase 52 (38-126) U/L Total Creatine Kinase <20 L (30-135) U/L CK-MB (CK-2) 0.3 (0.0-2.4) ng/mL CK-MB (CK-2) Rel Index Troponin I 0.014 (0.000-0.034) ng/mL Total Protein 6.7 (6.3-8.2) g/dL Albumin 4.1 (3.5-5.0) g/dL 03/13/18 03/13/18 Range/Units 14:35 20:06 WBC (3.8-10.6) k/uL RBC (3.80-5.40) m/uL Hgb (11.4-16.0) gm/dL Hct (34.0-46.0) % MCV (80.0-100.0) fL MCH (25.0-35.0) pg MCHC (31.0-37.0) g/dL RDW (11.5-15.5) % Plt Count (150-450) k/uL Neutrophils % % Lymphocytes % % Monocytes % % Eosinophils % % Basophils % % Neutrophils # (1.3-7.7) k/uL Lymphocytes # (1.0-4.8) k/uL Monocytes # (0-1.0) k/uL Eosinophils # (0-0.7) k/uL Basophils # (0-0.2) k/uL PT 10.0 (9.0-12.0) sec INR 1.0 (<1.2) APTT 20.4 L (22.0-30.0) sec D-Dimer 0.59 (<0.60) mg/L FEU Sodium (137-145) mmol/L Potassium (3.5-5.1) mmol/L Chloride (98-107) mmol/L Carbon Dioxide (22-30) mmol/L Anion Gap mmol/L BUN (7-17) mg/dL Creatinine (0.52-1.04) mg/dL Est GFR (CKD-EPI)AfAm (>60 ml/min/1.73 sqM) Est GFR (CKD-EPI)NonAf (>60 ml/min/1.73 sqM) Glucose (74-99) mg/dL Calcium (8.4-10.2) mg/dL Magnesium (1.6-2.3) mg/dL Total Bilirubin (0.2-1.3) mg/dL AST (14-36) U/L ALT (9-52) U/L Alkaline Phosphatase (38-126) U/L Total Creatine Kinase (30-135) U/L CK-MB (CK-2) (0.0-2.4) ng/mL CK-MB (CK-2) Rel Index Troponin I 0.014 (0.000-0.034) ng/mL Total Protein (6.3-8.2) g/dL Albumin (3.5-5.0) g/dL Disposition Clinical Impression: Chest pain Disposition: HOME SELF-CARE Condition: Stable Instructions: Chest Pain (ED) Is patient prescribed a controlled substance at d/c from ED?: No Referrals: Emmanuel Dunaway DO [Primary Care Provider] - 1-2 days
[2018-03-13] MEDS ORDERED: NALOXONE 0.4 MG/ML 1 ML VIAL IV PRN (17:00)
--- NOTE | 2018-03-13 19:26 | CT ---
EXAMINATION TYPE: CT angio chest DATE OF EXAM: 03/13/2018 6:24 PM COMPARISON: HISTORY: Left sided chest pain radiating into left side of neck. CT DLP: 296.4 mGycm Automated exposure control for dose reduction was used. CONTRAST: CTA scan of the thorax is performed with IV Contrast, patient injected with 74ml mL of Isovue 370, pu lmonary embolism protocol. . FINDINGS: LUNGS: The lungs are grossly clear, there is no concerning parenchymal mass or nodule identified. T here is no pleural effusion or pneumothorax seen. The tracheobronchial tree is patent. MEDIASTINUM: There is satisfactory enhancement of the pulmonary artery and its branches, there is no CT evidence for pulmonary embolism. There are no greater than 1 cm hilar or mediastinal lymph nodes. No pericardial effusion is seen. Calcifications are noted within the starr of the thoracic aorta w ithout aneurysmal dilatation or dissection. Maximum diameter of the ascending thoracic aorta is 3.1 c m. Maximum diameter of the descending thoracic aorta is 2.5 cm. OTHER: Hiatal hernia at the gastroesophageal junction measuring 6 cm in diameter. Multiple artifacts secondary to the right shoulder metallic prosthesis. IMPRESSION: NO EVIDENCE OF AORTIC ANEURYSM OR DISSECTION.0 NO FILLING DEFECT WITHIN THE PULMONARY ARTERIES TO SUG GEST PULMONARY EMBOLUS.0 LARGE HIATAL HERNIA THE GASTROESOPHAGEAL JUNCTION.
--- NOTE | 2018-03-13 19:27 | P.HPIM ---
History of Present Illness 7-year-old female came in with constant chest pain patient is a poor historian patient cannot characterize the pain and severity of pain patient had a recent carotid catheterization which did not show any significant atherosclerotic occlusive disease that need stenting patient troponin is negative EKG no syncope and changed from the past, her chest pain is a producible bun upon palpation probably [place] skeletal nature patient wanted to go home because of which I'll obtain another set of troponin and EKG that stable and afebrile CT angios the head and neck are negative patient will be discharged today to home. D-dimer is negative but because of which I do not expect any abnormality patient's has some peribronchial thickening may be related to bronchitis although patient doesn't have any significant cough with sputum production. Review of Systems REVIEW OF SYSTEMS: CONSTITUTIONAL: No fever, no malaise, no fatigue. HEENT: No recent visual problems or hearing problems. Denied any sore throat. CARDIOVASCULAR: No orthopnea, PND, no palpitations, no syncope. PULMONARY: No shortness of breath, no cough, no hemoptysis. GASTROINTESTINAL: No diarrhea, no nausea, no vomiting, no abdominal pain. Normoactive bowel sounds. NEUROLOGICAL: No headaches, no weakness, no numbness. HEMATOLOGICAL: Denies any bleeding or petechiae. GENITOURINARY: Denies any burning micturition, frequency, or urgency. MUSCULOSKELETAL/RHEUMATOLOGICAL: Denies any joint pain, swelling, or any muscle pain. ENDOCRINE: Denies any polyuria or polydipsia. The rest of the 14-point review of systems is negative. Past Medical History Past Medical History: CVA/TIA, Hypertension Additional Past Medical History / Comment(s): several strokes per daughter History of Any Multi-Drug Resistant Organisms: None Reported Past Surgical History: Appendectomy, Hysterectomy Additional Past Surgical History / Comment(s): left ankle surgery - fused, right shoulder Past Anesthesia/Blood Transfusion Reactions: No Reported Reaction Past Psychological History: Anxiety Smoking Status: Former smoker Past Alcohol Use History: None Reported Past Drug Use History: None Reported - Past Family History Father Family Medical History: No Reported History Mother Family Medical History: No Reported History Daughter(s) Family Medical History: Fibromyalgia Medications and Allergies Home Medications Medication Instructions Recorded Confirmed Type Atorvastatin [Lipitor] 40 mg PO DAILY 04/30/17 03/13/18 History Losartan/Hydrochlorothiazide 1 tab PO DAILY 04/30/17 03/13/18 History [Losartan-Hctz 100-25 mg Tab] Omeprazole [PriLOSEC] 20 mg PO DAILY 04/30/17 03/13/18 History Isosorbide Mononitrate ER [Imdur] 30 mg PO DAILY #30 tab.er.24h 12/10/17 Rx Aspirin 325 mg PO DAILY 03/13/18 03/13/18 History Cholecalciferol [Vitamin D3] 1,000 unit PO DAILY 03/13/18 03/13/18 History [place]-3 Fatty Acids/Fish Oil [Fish 1 cap PO DAILY 03/13/18 03/13/18 History Oil 1,000 mg Softgel] Allergies Allergy/AdvReac Type Severity Reaction Status Date / Time hydrocodone [From [place]] Allergy Hallucinati Verified 03/13/18 15:42 ons Physical Exam Vitals: Vital Signs Temp Pulse Resp BP Pulse Ox 03/13/18 18:32 58 L 17 158/94 96 03/13/18 16:25 71 17 158/81 92 L 03/13/18 15:15 67 17 167/74 93 L 03/13/18 13:53 98.9 F 71 18 158/71 96 Intake and Output 03/13/18 03/13/18 03/13/18 06:59 14:59 22:59 Other: Weight 54.431 kg PHYSICAL EXAMINATION: GENERAL: The patient is alert and oriented x3, not in any acute distress. Well developed, well nourished. HEENT: Pupils are round and equally reacting to light. EOMI. No scleral icterus. No conjunctival pallor. Normocephalic, atraumatic. No pharyngeal erythema. No thyromegaly. CARDIOVASCULAR: S1 and S2 present. No murmurs, rubs, or gallops. Reproducible chest pain upon palpation PULMONARY: Chest is clear to auscultation, no wheezing or crackles. ABDOMEN: Soft, nontender, nondistended, normoactive bowel sounds. No palpable organomegaly. MUSCULOSKELETAL: No joint swelling or deformity. EXTREMITIES: No cyanosis, clubbing, or pedal edema. NEUROLOGICAL: Gross neurological examination did not reveal any focal deficits. SKIN: No rashes. Results CBC & Chem 7: 03/13/18 14:35 03/13/18 14:35 Labs: Abnormal Lab Results - Last 24 Hours (Table) 03/13/18 03/13/18 03/13/18 Range/Units 14:35 14:35 14:35 WBC 10.9 H (3.8-10.6) k/uL Neutrophils # 9.3 H (1.3-7.7) k/uL Lymphocytes # 0.9 L (1.0-4.8) k/uL APTT (22.0-30.0) sec BUN 20 H (7-17) mg/dL Total Creatine Kinase <20 L (30-135) U/L 03/13/18 Range/Units 14:35 WBC (3.8-10.6) k/uL Neutrophils # (1.3-7.7) k/uL Lymphocytes # (1.0-4.8) k/uL APTT 20.4 L (22.0-30.0) sec BUN (7-17) mg/dL Total Creatine Kinase (30-135) U/L Assessment and Plan Plan: -Chest pain most probably musculoskeletal atypical had a recent cardiac catheterization in month of November which was negative, CT angios negative patient will be discharged today after another set of troponin and EKG. -Hypertension -CVA or TIA in the past -Hyperlipidemia For above-mentioned chronic medical problems patient will resume and continue her home medications.
--- NOTE | 2018-03-13 19:28 | P.DS ---
Providers Consults: 03/13/18 17:02 Consult Physician Routine Consulting Provider: Jean-Paul Monroe Consult Reason/Comments: chest pain Do you want consulting provider notified?: Yes Primary care physician: Emmanuel Dunaway [facility] Course: Please refer to my HPI Plan - Discharge Summary New Discharge Prescriptions: No Action Omeprazole [PriLOSEC] 20 mg PO DAILY Losartan/Hydrochlorothiazide [Losartan-Hctz 100-25 mg Tab] 1 tab PO DAILY Atorvastatin [Lipitor] 40 mg PO DAILY Isosorbide Mononitrate ER [Imdur] 30 mg PO DAILY #30 tab.er.24h [place]-3 Fatty Acids/Fish Oil [Fish Oil 1,000 mg Softgel] 1 cap PO DAILY Cholecalciferol [Vitamin D3] 1,000 unit PO DAILY Aspirin 325 mg PO DAILY Discharge Medication List Atorvastatin [Lipitor] 40 mg PO DAILY 04/30/17 [History] Losartan/Hydrochlorothiazide [Losartan-Hctz 100-25 mg Tab] 1 tab PO DAILY [History] Omeprazole [PriLOSEC] 20 mg PO DAILY 04/30/17 [History] Isosorbide Mononitrate ER [Imdur] 30 mg PO DAILY #30 tab.er.24h 12/10/17 [Rx] Aspirin 325 mg PO DAILY 03/13/18 [History] Cholecalciferol [Vitamin D3] 1,000 unit PO DAILY 03/13/18 [History] [place]-3 Fatty Acids/Fish Oil [Fish Oil 1,000 mg Softgel] 1 cap PO DAILY [History] Follow up Appointment(s)/Referral(s): Emmanuel Dunaway DO [Primary Care Provider] - 1-2 days
--- NOTE | 2018-03-13 19:34 | CT ---
EXAMINATION TYPE: CT angio neck DATE OF EXAM: 03/13/2018 HISTORY: Left sided chest pain radiating into left side of neck. COMPARISON: CT DLP: 296.4 mGycm. Automated Exposure Control for Dose Reduction was Utilized. TECHNIQUE: CTA scan of the neck is performed with IV Contrast, patient injected with 74ml mL of Isov ue 370, axial images are obtained, coronal and sagittal reformatted images are reviewed. Three-D donald nstructed images are created on an independent workstation and reviewed. The study is limited due to IV extravasation with resultant poor contrast bolus. FINDINGS: Carotid/Vascular Structures: Visualization of the carotids which is a suboptimal due to the poor cont rast bolus. Cannot well evaluate the bifurcations. Both internal carotid arteries appear to be extend ing all the way to the base of the skull. Other: Moderate tortuosity of the common carotid artery on the left side at the cervical portion. IMPRESSION: Suboptimal study due to the IV extravasation with resultant poor contrast bolus. Cannot well evaluate the carotid bifurcations. Moderate pleural porosity of the cervical portion of t he left common carotid artery. The internal carotid arteries are barely visible on the way up to the base of the skull. . Both vertebral arteries are visible and patent to the basilar artery. Repeat study could be performe d for further evaluation.
[2018-03-13 22:25] VITALS: BP 155/78; PULSE 79; TEMP 98.1
== END 2018-03-13 22:24 | disposition home or self-care (01) ==
LOC: EC 13:47 → UNDOADMOB 17:01 → 3OBS 17:01 → EC 22:24
DX: R07.9 Chest pain, unspecified (principal); R79.1 Abnormal coagulation profile; D72.829 Elevated white blood cell count, unspecified; I10 Essential (primary) hypertension; F41.9 Anxiety disorder, unspecified; Z86.73 Personal history of transient ischemic attack (TIA), and cerebral infarction without residual deficits; Z87.891 Personal history of nicotine dependence; Z79.899 Other long term (current) drug therapy; Z79.82 Long term (current) use of aspirin; Z88.5 Allergy status to narcotic agent
CPT/HCPCS: 99285; 36415; 93005; 85379; 80053; 82550; 82553; 83735; 84484; 85025; 85610; 85730; 71046; 70498; 71275; Q9967

== ENCOUNTER → 2018-08-19 | Outpatient (CLI) | payer MEDICARE ==
--- NOTE | 2018-08-19 14:56 | XR ---
Left shoulder HISTORY: Left shoulder pain 2 views of the left shoulder No comparisons There is some sclerosis, remodeling at the glenohumeral joint with associated joint space loss. Arthr opathy noted at the acromioclavicular joint. Left lung apex as visualized is normal. The heart may be enlarged. IMPRESSION: Suspect underlying osteoarthritic change. Additional findings above.
== END | disposition home or self-care (01) ==
LOC: RADXRYALE 13:44
PROVIDERS: ATTEND Physician Assistant Medical
DX: M25.512 Pain in left shoulder (principal)

== ENCOUNTER → 2018-09-02 | Outpatient (CLI) | payer MEDICARE ==
--- NOTE | 2018-09-02 12:57 | US ---
EXAMINATION TYPE: US carotid duplex BILAT DATE OF EXAM: 09/02/2018 COMPARISON: NONE CLINICAL HISTORY: F0390 dementia. HTN EXAM MEASUREMENTS: RIGHT: Peak Systolic Velocity (PSV) cm/sec ----- Right CCA: 60.7 ----- Right ICA: 91.0 ----- Right ECA: 60.5 ICA/CCA ratio: 1.5 RIGHT: End Diastole cm/sec ----- Right CCA: 14.5 ----- Right ICA: 21.2 ----- Right ECA: 0.0 LEFT: Peak Systolic Velocity (PSV) cm/sec ----- Left CCA: 59.0 ----- Left ICA: 54.6 ----- Left ECA: 53.6 ICA/CCA ratio: 0.9 LEFT: End Diastole cm/sec ----- Left CCA: 11.9 ----- Left ICA: 14.5 ----- Left ECA: 0.0 VERTEBRALS (direction of flow): Right Vertebral: Antegrade Left Vertebral: Antegrade Rhythm: Normal Bilateral intimal thickening, no elevated velocities, no significant stenosis. Waveform analysis glez s not show any significant stenosis. Grayscale, color Doppler, spectral Doppler imaging performed of the carotid arteries. IMPRESSION: No hemodynamic significant stenosis of the proximal internal carotid arteries bilaterall y by Doppler criteria, an indirect measurement of carotid stenosis
--- NOTE | 2018-09-02 13:32 | CT ---
EXAMINATION TYPE: CT brain wo con DATE OF EXAM: 09/02/2018 COMPARISON: None HISTORY: 78-year-old female with hypertension and confusion TECHNIQUE: Examination was done in axial plane without intravenous contrast. Coronal and sagittal r econstructions performed. CT DLP: 1036 mGycm Automated exposure control for dose reduction was used. FINDINGS: There is no evidence of acute intracranial hemorrhage, acute ischemic changes, mass, mass-effect, or extra-axial fluid collection. There is no effacement of cerebral sulci or basal subarachnoid cister ns. There is no hydrocephalus. There is no midline shift. Cano-white matter distinction is preserv ed. Mild generalized supratentorial volume loss with moderate patchy and confluent white matter hypodensi ties both cerebral hemispheres and confluent white matter density in the subinsular regions as well. Atherosclerotic calcifications in the bilateral carotid siphons. Empty sella incidentally noted. Small polyp or mucosal retention cyst medial floor of the right maxillary sinus. Remaining paranasal sinuses are well pneumatized. Mastoid air cells well pneumatized. There is deformity to the left glob e possibly posttraumatic. This can be correlated clinically with direct visualization. IMPRESSION: 1. Mild generalized atrophy and moderate confluent white matter hypodensity which is nonspecific but probably relates to moderate to severe burden of chronic small vessel ischemic disease. Clinically co rrelate. No acute intracranial abnormality seen. 2. Left globe deformity which is likely clinically apparent. Correlate with patient's trauma history.
== END | disposition home or self-care (01) ==
LOC: RADCTMAIN 12:05
PROVIDERS: ATTEND Family Medicine
DX: G31.9 Degenerative disease of nervous system, unspecified (principal); I67.82 Cerebral ischemia; R90.82 White matter disease, unspecified; I10 Essential (primary) hypertension; E78.2 Mixed hyperlipidemia
CPT/HCPCS: 70450; 93880

== ENCOUNTER 2019-01-05 15:19 | Observation (INO) | payer MEDICARE ==
[2019-01-05] MEDS ORDERED: LORazepam 2 MG/ML INJ IV STA (15:41)
[2019-01-05] MEDS ORDERED: hydrALAZINE HCL 20 MG/ML 1 ML VIAL IVP STA (15:43)
--- NOTE | 2019-01-05 15:56 | ED ---
General Adult HPI - General Chief complaint: Recheck/Abnormal Lab/Rx Stated complaint: Anxiety Time Seen by Provider: 01/05/19 15:20 Source: patient, EMS, RN notes reviewed Mode of arrival: ambulatory Limitations: no limitations - History of Present Illness Initial comments: This is a 78-year-old female who presents to the emergency department after hav ing had a near syncopal episode. Patient was at the doctor's office getting shot of steroids for recently developed rash on her chest. Patient then started to hyperventilate according to the staff at the doctor's office and then became lightheaded and thought she might pass out. At the time she had no complaints of chest pain difficulty breathing or shortness of breath. Patient denied any palpitations. Patient states currently she does not feel lightheaded. Patient is a very poor historian however. Patient denies any recent fever chills or cough. Patient denies any abdominal pain patient denies nausea vomiting diarrhea. Patient does agree that she has anxiety and she may have been anxious earlier. Patient also states that after she got the shot she thinks she became a little anxious. - Related Data Home Medications Medication Instructions Recorded Confirmed Atorvastatin [Lipitor] 40 mg PO HS 04/30/17 01/05/19 Losartan/Hydrochlorothiazide 1 tab PO DAILY 04/30/17 01/05/19 [Losartan-Hctz 100-25 mg Tab] Omeprazole [PriLOSEC] 20 mg PO DAILY 04/30/17 01/05/19 Aspirin 325 mg PO DAILY 03/13/18 01/05/19 Acetaminophen Tab [Tylenol Tab] 500 mg PO HS 01/05/19 01/05/19 Allergies Allergy/AdvReac Type Severity Reaction Status Date / Time adhesive tape Allergy Rash/Hives Verified 01/05/19 16:05 hydrocodone [From [place]] Allergy Hallucinati Verified 03/13/18 15:42 ons Review of Systems ROS Statement: Those systems with pertinent positive or pertinent negative responses have been documented in the HPI. ROS Other: All systems not noted in ROS Statement are negative. Past Medical History Past Medical History: CVA/TIA, Dementia, GERD/Reflux, Hyperlipidemia, Hypertension Additional Past Medical History / Comment(s): several strokes per daughter; chronic left shoulder pain; vitamin D deficiency History of Any Multi-Drug Resistant Organisms: None Reported Past Surgical History: Appendectomy, Hysterectomy Additional Past Surgical History / Comment(s): left ankle surgery - fused, right shoulder Past Anesthesia/Blood Transfusion Reactions: No Reported Reaction Past Psychological History: Anxiety Smoking Status: Former smoker Past Alcohol Use History: None Reported Past Drug Use History: None Reported - Past Family History Father Family Medical History: No Reported History Mother Family Medical History: No Reported History Daughter(s) Family Medical History: Fibromyalgia General Exam - General Exam Comments Initial Comments: GENERAL: Patient is well-developed and well-nourished. Patient is nontoxic and well- hydrated and is in mild distress. ENT: Neck is soft and supple. No significant lymphadenopathy is noted. Oropharynx is clear. Moist mucous membranes. Neck has full range of motion without eliciting any pain. EYES: The sclera were anicteric and conjunctiva were pink and moist. Extraocular movements were intact and pupils were equal round and reactive to light. Eyelids were unremarkable. PULMONARY: Unlabored respirations. Good breath sounds bilaterally. No audible rales rhonchi or wheezing was noted. CARDIOVASCULAR: There is a regular rate and rhythm without any murmurs gallops or rubs. ABDOMEN: Soft and nontender with normal bowel sounds. SKIN: Skin is clear with no lesions or rashes and otherwise unremarkable. NEUROLOGIC: Patient is alert and oriented x3. Cranial nerves II through XII are grossly intact. Motor and sensory are also intact. Normal speech, volume and content. Symmetrical smile. MUSCULOSKELETAL: Normal extremities with adequate strength and full range of motion. No lower extremity swelling or edema. No calf tenderness. LYMPHATICS: No significant lymphadenopathy is noted PSYCHIATRIC: Patient appears mildly anxious Limitations: no limitations Course Vital Signs 01/05/19 01/05/19 01/05/19 15:22 15:30 16:00 Temperature 98.1 F Pulse Rate 82 73 75 Respiratory 18 17 15 Rate Blood Pressure 204/99 204/99 204/95 O2 Sat by Pulse 95 96 Oximetry 01/05/19 01/05/19 01/05/19 16:40 17:05 17:10 Temperature Pulse Rate 84 82 85 Respiratory 20 18 18 Rate Blood Pressure 147/107 138/79 138/79 O2 Sat by Pulse 98 100 Oximetry 01/05/19 01/05/19 17:30 18:20 Temperature Pulse Rate 98 95 Respiratory 20 20 Rate Blood Pressure 162/64 128/79 O2 Sat by Pulse 97 99 Oximetry Medical Decision Making - Medical Decision Making EKG shows normal sinus rhythm at 84 bpm [place] interval 166 dresses 76 QT interval 4 08 QTC is 482. Patient's EKG shows no ST segment elevation or depression. - Lab Data Result diagrams: 01/05/19 16:25 01/05/19 16:25 Lab Results 01/05/19 01/05/19 01/05/19 Range/Units 16:25 16:25 16:25 WBC 7.1 (3.8-10.6) k/uL RBC 4.36 (3.80-5.40) m/uL Hgb 12.7 (11.4-16.0) gm/dL Hct 38.8 (34.0-46.0) % MCV 89.0 (80.0-100.0) fL MCH 29.1 (25.0-35.0) pg MCHC 32.7 (31.0-37.0) g/dL RDW 13.6 (11.5-15.5) % Plt Count 353 (150-450) k/uL Neutrophils % 76 % Lymphocytes % 15 % Monocytes % 5 % Eosinophils % 2 % Basophils % 0 % Neutrophils # 5.4 (1.3-7.7) k/uL Lymphocytes # 1.1 (1.0-4.8) k/uL Monocytes # 0.4 (0-1.0) k/uL Eosinophils # 0.1 (0-0.7) k/uL Basophils # 0.0 (0-0.2) k/uL PT 10.2 (9.0-12.0) sec INR 0.9 (<1.2) APTT 22.2 (22.0-30.0) sec Sodium 141 (137-145) mmol/L Potassium 3.9 (3.5-5.1) mmol/L Chloride 106 (98-107) mmol/L Carbon Dioxide 26 (22-30) mmol/L Anion Gap 9 mmol/L BUN 23 H (7-17) mg/dL Creatinine 0.63 (0.52-1.04) mg/dL Est GFR (CKD-EPI)AfAm >90 (>60 ml/min/1.73 sqM) Est GFR (CKD-EPI)NonAf 87 (>60 ml/min/1.73 sqM) Glucose 86 (74-99) mg/dL POC Glucose (mg/dL) (75-99) mg/dL POC Glu Regional Business Manager ID Calcium 10.2 (8.4-10.2) mg/dL Magnesium 1.7 (1.6-2.3) mg/dL Total Bilirubin 1.0 (0.2-1.3) mg/dL AST 29 (14-36) U/L ALT 25 (9-52) U/L Alkaline Phosphatase 72 (38-126) U/L Troponin I (0.000-0.034) ng/mL Total Protein 7.2 (6.3-8.2) g/dL Albumin 4.5 (3.5-5.0) g/dL Urine Color Urine Appearance (Clear) Urine pH (5.0-8.0) Ur Specific [place] (1.001-1.035) Urine Protein (Negative) Urine Glucose (UA) (Negative) Urine Ketones (Negative) Urine Blood (Negative) Urine Nitrite (Negative) Urine Bilirubin (Negative) Urine Urobilinogen (<2.0) mg/dL Ur Leukocyte Esterase (Negative) Urine RBC (0-5) /hpf Urine WBC (0-5) /hpf Amorphous Sediment (None) /hpf Urine Mucus (None) /hpf 01/05/19 01/05/19 01/05/19 Range/Units 16:25 16:47 17:40 WBC (3.8-10.6) k/uL RBC (3.80-5.40) m/uL Hgb (11.4-16.0) gm/dL Hct (34.0-46.0) % MCV (80.0-100.0) fL MCH (25.0-35.0) pg MCHC (31.0-37.0) g/dL RDW (11.5-15.5) % Plt Count (150-450) k/uL Neutrophils % % Lymphocytes % % Monocytes % % Eosinophils % % Basophils % % Neutrophils # (1.3-7.7) k/uL Lymphocytes # (1.0-4.8) k/uL Monocytes # (0-1.0) k/uL Eosinophils # (0-0.7) k/uL Basophils # (0-0.2) k/uL PT (9.0-12.0) sec INR (<1.2) APTT (22.0-30.0) sec Sodium (137-145) mmol/L Potassium (3.5-5.1) mmol/L Chloride (98-107) mmol/L Carbon Dioxide (22-30) mmol/L Anion Gap mmol/L BUN (7-17) mg/dL Creatinine (0.52-1.04) mg/dL Est GFR (CKD-EPI)AfAm (>60 ml/min/1.73 sqM) Est GFR (CKD-EPI)NonAf (>60 ml/min/1.73 sqM) Glucose (74-99) mg/dL POC Glucose (mg/dL) 86 (75-99) mg/dL POC Glu Regional Business Manager ID Jodie Dobbs Calcium (8.4-10.2) mg/dL Magnesium (1.6-2.3) mg/dL Total Bilirubin (0.2-1.3) mg/dL AST (14-36) U/L ALT (9-52) U/L Alkaline Phosphatase (38-126) U/L Troponin I <0.012 (0.000-0.034) ng/mL Total Protein (6.3-8.2) g/dL Albumin (3.5-5.0) g/dL Urine Color Light Yellow Urine Appearance Clear (Clear) Urine pH 7.0 (5.0-8.0) Ur Specific [place] 1.008 (1.001-1.035) Urine Protein Negative (Negative) Urine Glucose (UA) Negative (Negative) Urine Ketones Negative (Negative) Urine Blood Trace H (Negative) Urine Nitrite Negative (Negative) Urine Bilirubin Negative (Negative) Urine Urobilinogen <2.0 (<2.0) mg/dL Ur Leukocyte Esterase Moderate H (Negative) Urine RBC 3 (0-5) /hpf Urine WBC 14 H (0-5) /hpf Amorphous Sediment Rare H (None) /hpf Urine Mucus Rare H (None) /hpf Disposition Clinical Impression: Near syncope, Altered mental status Disposition: ADMITTED IP TO THIS HOSP Referrals: Emmanuel Dunaway DO [Primary Care Provider] - 1-2 days Time of Disposition: 19:56
[2019-01-05 16:38] LABS: Basophils % (A) 0 %; Eosinophils # (A) 0.1 k/uL (0-0.7); Eosinophils % (A) 2 %; HCT 38.8 % (34.0-46.0); HGB 12.7 gm/dL (11.4-16.0); Lymphocytes # (A) 1.1 k/uL (1.0-4.8); Lymphocytes % (A) 15 %; MCH 29.1 pg (25.0-35.0); MCHC 32.7 g/dL (31.0-37.0); Mean Platelet Volume 7.2; Monocytes # (A) 0.4 k/uL (0-1.0); Monocytes % (A) 5 %; Neutrophils # (A) 5.4 k/uL (1.3-7.7); Neutrophils % (A) 76 %; Platelet Count 353 k/uL (150-450); RBC 4.36 m/uL (3.80-5.40); RDW 13.6 % (11.5-15.5); WBC 7.1 k/uL (3.8-10.6)
[2019-01-05 16:46] LABS: INR 0.9 (<1.2); Partial Thromboplastin Time 22.2 sec (22.0-30.0); Prothrombin Time 10.2 sec (9.0-12.0)
[2019-01-05 16:48] LABS: ALT 25 U/L (9-52); AST 29 U/L (14-36); Albumin 4.5 g/dL (3.5-5.0); Alkaline Phosphatase 72 U/L (38-126); Anion Gap 9 mmol/L; Blood Urea Nitrogen 23 mg/dL (7-17); Calcium 10.2 mg/dL (8.4-10.2); Carbon Dioxide 26 mmol/L (22-30); Chloride 106 mmol/L (98-107); Glucose 86 mg/dL (74-99); Magnesium 1.7 mg/dL (1.6-2.3); Potassium 3.9 mmol/L (3.5-5.1); Sodium 141 mmol/L (137-145); Total Protein 7.2 g/dL (6.3-8.2)
--- NOTE | 2019-01-05 16:55 | XR ---
EXAMINATION TYPE: XR chest 2V DATE OF EXAM: 01/05/2019 COMPARISON: Chest x-ray and CTA chest March 13, 2018. HISTORY: Anxiety attack today with chest pain. TECHNIQUE: Frontal and lateral views of the chest are obtained. FINDINGS: There is chronic parenchymal change bilaterally without suspicious focal air space opacity , pleural effusion, or pneumothorax seen. The cardiac silhouette size is stable and upper limits of normal. Retrocardiac opacity consistent with moderate size hiatal hernia is redemonstrated. Surgical change right proximal humerus is again seen. IMPRESSION: Chronic changes without acute pulmonary process.
[2019-01-05 17:22] LABS: Amorphous Sediment,Urine Rare /hpf; Appearance,Urine Clear (Clear); Bilirubin,Urine Negative (Negative); Blood,Urine Trace (Negative); Color,Urine Light Yellow; Glucose,Urine (UA) Negative (Negative); Ketones,Urine Negative (Negative); Leukocyte Esterase,Urine Moderate (Negative); Mucus,Urine Rare /hpf; Nitrite,Urine Negative (Negative); Protein,Urine Negative (Negative); RBC,Urine 3 /hpf (0-5); Specific Gravity,Urine 1.008 (1.001-1.035); Urobilinogen,Urine <2.0 mg/dL (<2.0)
[2019-01-05] MEDS ORDERED: SODIUM CHLORIDE 0.9% 500 ML 500 ML IV ONE (17:44)
[2019-01-05 17:52] LABS: Glucose,Whole Blood 86 mg/dL (75-99)
[2019-01-05] MEDS ORDERED: SODIUM CHLORIDE 0.9% 1,000 ML IV ONE (19:57)
--- NOTE | 2019-01-05 20:35 | CT ---
EXAMINATION TYPE: CT brain wo con DATE OF EXAM: 01/05/2019 HISTORY: Anxiety, AMS. Hx dementia and stroke CT DLP: 1212.4 mGycm. Automated Exposure Control for Dose Reduction was Utilized. TECHNIQUE: CT scan of the head is performed without contrast. COMPARISON: CT scan of brain September 02, 2018. FINDINGS: There is no acute intracranial hemorrhage or midline shift identified. There is diffuse v entricular and sulcal prominence consistent with diffuse age-related cerebral atrophy. There is low- attenuation in the periventricular white matter consistent with chronic small vessel ischemic change. Calcification of left lens is redemonstrated. Paranasal sinuses are grossly clear. Right-sided hear ing aid device noted. Some patchy cerumen deep to this is felt present. IMPRESSION: No acute intracranial hemorrhage or midline shift. There is moderate diffuse age-relate d cerebral atrophy and chronic small vessel ischemic change redemonstrated. No significant change fr om recent CT.
[2019-01-05] MEDS ORDERED: HALOPERIDOL 5 MG TAB PO PRN (22:42)
[2019-01-06 04:09] VITALS: RESP 18
--- NOTE | 2019-01-06 06:51 | HP ---
HISTORY AND PHYSICAL CHIEF COMPLAINTS: Syncope and anxiety. HISTORY OF PRESENT ILLNESS: This 78-year-old woman with a past medical history of multiple medical problems including CVA, TIA, dementia, history of GERD, hypertension, hyperlipidemia being followed by Dr. Emmanuel Dunaway in the outpatient setting is complaining of lightheadedness. The patient apparently had a near syncopal episode. The patient was at the doctor's office receiving a steroid shot for a rash on the chest. The patient had some hypoventilation per staff and subsequently patient was complaining of some difficulty breathing. The patient is complaining of feeling lightheaded and patient taken to [facility] and admitted for further evaluation and treatment. Patient also has some anxiety. The patient was given 0.5 mg of Ativan. Subsequently, patient became agitated and having a bowel movement. The patient admitted for further evaluation and treatment. There is no history any fever, rigor, chills. Currently the patient is confused, unable to give a coherent history. Most of the history is taken from my discussion with staff, ER physician, and review of the chart and discussion with daughter at the bedside. PAST MEDICAL HISTORY: History of CVA, TIA, dementia, GERD, hypertension, hyperlipidemia. MEDICATIONS: Medications prior to admission home medications are: 1. Prilosec 20 mg p.o. daily. 2. Mobic 7.5 mg p.o. b.i.d. 3. Losartan hydrochlorothiazide 1 p.o. daily. 4. Lipitor 40 mg p.o. q.h.s. 5. Aspirin 325 mg p.o. daily. 6. Tylenol 500 mg q.h.s. ALLERGIES: ADHESIVE TAPES and NORCO. FAMILY HISTORY: No history of heart disease or strokes in the family. SOCIAL HISTORY: Previous history of smoking. No history of alcohol intake. REVIEW OF SYSTEMS: Could not be taken at length because of the patient's change in mental status. PHYSICAL EXAMINATION: Patient is alert and oriented x2. Pulse is 104. Blood pressure is 135/84, respiration 17. Temperature 98.5, pulse ox 92% on 2 L. HEENT: Conjunctivae normal. Oral mucosa moist. NECK: No jugular venous distention. No carotid bruit. No lymph node enlargement. CARDIOVASCULAR: S1, S2 muffled. No S3, no S4. RESPIRATORY: Breath sounds diminished at the bases. A few scattered rhonchi. No crackles. ABDOMEN: Soft, nontender. No mass palpable. LEGS: No edema. No swelling. NERVOUS SYSTEM: Higher functions as mentioned earlier. Moves all 4 limbs. No focal motor or sensory deficit. LYMPHATICS: No lymphadenopathy of the neck, axillae or groin. SKIN: No ulcer, rash or bleeding. JOINTS: No active deforming arthropathy. LABS: CBC within normal limits. CMP, BUN is 23. UA noted. Possible UTI. ASSESSMENT: 1. Change in mental status and possible acute delirium, medication induced. 2. Presyncope. 3. Rule out urinary tract infection. 4. Cerebrovascular accident, transient ischemic attack. 5. Dementia. 6. Gastroesophageal reflux disease. 7. Hyperlipidemia. 8. Hypertension. 9. History of multiple strokes. 10.History of appendectomy. 11.History of hysterectomy. 12.History of anxiety. 13.Remote history of nicotine dependence. RECOMMENDATIONS AND DISCUSSION: This 78-year-old woman who presented with multiple complex medical issues, will monitor the patient closely. Continue the current medication. Continue symptomatic treatment. Will initiate home medications and urine culture. Otherwise, DVT prophylaxis. Continue to monitor neuro checks. I would also recommend to continue current medication. A brain CT was done which showed no acute intracranial abnormalities, diffuse age-related atrophy is noted. Once again, the prognosis guarded because of multiple complex medical issues. Further recommendations to follow. Discussed with the family and understands. Further recommendations to follow. A copy of dictation forwarded to Dr. Dunaway who is the primary physician. MMODL / IJN: [id number] /
[2019-01-06 07:13] LABS: Basophils % (A) 0 %; Eosinophils # (A) 0.1 k/uL (0-0.7); Eosinophils % (A) 1 %; HCT 36.4 % (34.0-46.0); HGB 11.5 gm/dL (11.4-16.0); Lymphocytes # (A) 1.1 k/uL (1.0-4.8); Lymphocytes % (A) 15 %; MCH 28.3 pg (25.0-35.0); MCHC 31.5 g/dL (31.0-37.0); MCV 89.9 fL (80.0-100.0); Mean Platelet Volume 7.1; Monocytes # (A) 0.5 k/uL (0-1.0); Monocytes % (A) 7 %; Neutrophils # (A) 5.3 k/uL (1.3-7.7); Neutrophils % (A) 75 %; Platelet Count 315 k/uL (150-450); RBC 4.05 m/uL (3.80-5.40); RDW 13.5 % (11.5-15.5); WBC 7.1 k/uL (3.8-10.6)
[2019-01-06 07:41] LABS: Anion Gap 8 mmol/L; Blood Urea Nitrogen 21 mg/dL (7-17); Carbon Dioxide 23 mmol/L (22-30); Chloride 107 mmol/L (98-107); Glucose 95 mg/dL (74-99); Potassium 3.6 mmol/L (3.5-5.1); Sodium 138 mmol/L (137-145)
[2019-01-06] MEDS ORDERED: MULTIVITAMINS, THERA 1 EACH TAB PO SCH (09:00)
[2019-01-06] MEDS ORDERED: HYDROCHLOROTHIAZIDE PO SCH (09:00)
[2019-01-06] MEDS ORDERED: PANTOPRAZOLE 40 MG TABLET PO SCH (09:00)
[2019-01-06] MEDS ORDERED: ASPIRIN 325 MG TAB PO SCH (09:00)
[2019-01-06] MEDS ORDERED: LOSARTAN PO SCH (09:00)
[2019-01-06 11:35] VITALS: BP 148/75; PULSE 69; TEMP 98
--- NOTE | 2019-01-06 13:36 | P.DS ---
Providers Date of admission: 01/05/19 19:58 Attending physician: Costa Hathaway [facility] Course: 78-year-old the female was admitted for near syncopal E after receiving a shot of steroid area patient had ALLERGIC reaction to see the start of steroid and it up having an episode of psychosis and patient received Benadryl as well. Patient was given Ativan after which patient got confused and was subsequently admitted. Patient doesn't have any UTI-like symptoms patient urine is bit abnormal with elevated leukocyte esterase this is secondary to asymptomatic bacteriuria. I do not believe she'll require any antibiotics patient wanted to be discharged, patient will be discharged on Claritin still has some rash in the chest which is consistent with ALLERGIC reaction patient has a toxic encephalopathy from medications which improved now. PHYSICAL EXAMINATION: GENERAL: The patient is alert and oriented x3, not in any acute distress. Well developed, well nourished. HEENT: Pupils are round and equally reacting to light. EOMI. No scleral icterus. No conjunctival pallor. Normocephalic, atraumatic. No pharyngeal erythema. No thyromegaly. CARDIOVASCULAR: S1 and S2 present. No murmurs, rubs, or gallops. PULMONARY: Chest is clear to auscultation, no wheezing or crackles. ABDOMEN: Soft, nontender, nondistended, normoactive bowel sounds. No palpable organomegaly. MUSCULOSKELETAL: No joint swelling or deformity. EXTREMITIES: No cyanosis, clubbing, or pedal edema. NEUROLOGICAL: Gross neurological examination did not reveal any focal deficits. SKIN: No rashes. For other chronic medical problems hospitalization course please refer to dictation of H&P from Dr. Hathaway Plan - Discharge Summary Discharge Rx Participant: No New Discharge Prescriptions: New Loratadine [Claritin] 10 mg PO DAILY #10 tab Continue Omeprazole [PriLOSEC] 20 mg PO DAILY Losartan/Hydrochlorothiazide [Losartan-Hctz 100-25 mg Tab] 1 tab PO DAILY Atorvastatin [Lipitor] 40 mg PO HS Aspirin 325 mg PO DAILY Acetaminophen Tab [Tylenol] 500 mg PO HS Meloxicam [Mobic] 7.5 mg PO BID Discharge Medication List Atorvastatin [Lipitor] 40 mg PO HS 04/30/17 [History] Losartan/Hydrochlorothiazide [Losartan-Hctz 100-25 mg Tab] 1 tab PO DAILY 04/30/17 [History] Omeprazole [PriLOSEC] 20 mg PO DAILY 04/30/17 [History] Aspirin 325 mg PO DAILY 03/13/18 [History] Acetaminophen Tab [Tylenol] 500 mg PO HS 01/05/19 [History] Meloxicam [Mobic] 7.5 mg PO BID 01/05/19 [History] Loratadine [Claritin] 10 mg PO DAILY #10 tab 01/06/19 [Rx] Follow up Appointment(s)/Referral(s): Emmanuel Dunaway DO [Primary Care Provider] - 3 Days Discharge Disposition: HOME SELF-CARE
[2019-01-06] MEDS ORDERED: ATORVASTATIN 40 MG TAB PO SCH (21:00)
[2019-01-06] MEDS ORDERED: ACETAMINOPHEN TAB 500 MG TAB PO SCH (21:00)
== END 2019-01-06 13:55 | disposition home or self-care (01) ==
LOC: EC 15:19 → 1SOBS 19:58
PROVIDERS: ADMIT Hospitalist; ATTEND Hospitalist
DX: G92 Toxic encephalopathy (principal); T50.905A Adverse effect of unspecified drugs, medicaments and biological substances, initial encounter; R55 Syncope and collapse; R06.89 Other abnormalities of breathing; R21 Rash and other nonspecific skin eruption; R82.71 Bacteriuria; F41.9 Anxiety disorder, unspecified; K21.9 Gastro-esophageal reflux disease without esophagitis; I10 Essential (primary) hypertension; E78.5 Hyperlipidemia, unspecified; F03.90 Unspecified dementia, unspecified severity, without behavioral disturbance, psychotic disturbance, mood disturbance, and anxiety; G89.29 Other chronic pain; M25.512 Pain in left shoulder; E55.9 Vitamin D deficiency, unspecified; Z87.891 Personal history of nicotine dependence; Z79.82 Long term (current) use of aspirin; Z79.899 Other long term (current) drug therapy; Z79.1 Long term (current) use of non-steroidal anti-inflammatories (NSAID); Z91.048 Other nonmedicinal substance allergy status; Z88.5 Allergy status to narcotic agent; Z86.73 Personal history of transient ischemic attack (TIA), and cerebral infarction without residual deficits; Z90.49 Acquired absence of other specified parts of digestive tract; Z90.710 Acquired absence of both cervix and uterus; Z82.69 Family history of other diseases of the musculoskeletal system and connective tissue
CPT/HCPCS: 96361 ×3; 96374; 96375; 99285; 36415; 94760; 93005; 80053; 80048; 83735; 84484; 85025 ×2; 85610; 85730; 81001; 87040; 87086; 71046; 70450; G0378 ×2; J2060; J0360

== ENCOUNTER → 2020-05-21 | Outpatient (CLI) | payer MEDICARE ==
--- NOTE | 2020-05-21 12:05 | XR ---
EXAMINATION TYPE: XR knee complete LT DATE OF EXAM: 05/21/2020 COMPARISON: NONE HISTORY: Pain TECHNIQUE: Three views are submitted. FINDINGS: Mild narrowing of the medial compartment of the knee joint. Trace amount of fluid in the suprapatella r bursa.. Osseous structures are intact. No acute fracture seen. Diffuse osteopenia IMPRESSION: 1. No acute fracture or dislocation. Diffuse osteopenia with arthropathy. Small amount of fluid in t he suprapatellar bursa could be associated with internal derangement. Consider follow-up MRI.
--- NOTE | 2020-05-21 12:06 | XR ---
EXAMINATION TYPE: XR shoulder complete LT DATE OF EXAM: 05/21/2020 COMPARISON: NONE HISTORY: Pain TECHNIQUE: Three views are submitted. FINDINGS: The osseous structures are intact. There is no acute fracture or dislocation. Diffuse osteopenia. Th ere is arthropathy of the AC joint subsegmental changes involving the left lung base. IMPRESSION: 1. Diffuse osteopenia of the AC joint arthropathy. 2. Nonspecific left lower lobe consolidation and pleural effusion recommend chest x-ray.
== END | disposition home or self-care (01) ==
LOC: RADXRYALE 11:42
PROVIDERS: ATTEND Physician Assistant Medical
DX: M19.012 Primary osteoarthritis, left shoulder (principal); M17.12 Unilateral primary osteoarthritis, left knee; M85.862 Other specified disorders of bone density and structure, left lower leg; M85.812 Other specified disorders of bone density and structure, left shoulder; J90 Pleural effusion, not elsewhere classified

== ENCOUNTER → 2020-05-24 | Outpatient (CLI) | payer MEDICARE ==
--- NOTE | 2020-05-24 13:58 | XR ---
EXAMINATION TYPE: XR chest 2V DATE OF EXAM: 05/24/2020 COMPARISON: 01/05/2019, shoulder x-ray on 05/21/2020 TECHNIQUE: PA and lateral views submitted. HISTORY: Abnormal x-ray FINDINGS: The lungs are clear and there is no pneumothorax, pleural effusion, or focal pneumonia. Consolidati on appears to be related to a large hiatal hernia. No overt failure. Postsurgical change involving th e right shoulder. Atherosclerotic change aorta. Degenerative changes line. Surgical clips in the abdo men. IMPRESSION: 1. No acute process. Large retrocardiac density consistent with a hiatal hernia corresponds to the a bnormality seen in right shoulder x-ray.
== END | disposition home or self-care (01) ==
LOC: RADXRYALE 13:35
PROVIDERS: ATTEND Physician Assistant Medical
DX: R91.8 Other nonspecific abnormal finding of lung field (principal)
CPT/HCPCS: 71046

== ENCOUNTER → 2020-08-13 | Outpatient (CLI) | payer MEDICARE ==
--- NOTE | 2020-08-13 10:36 | BD ---
EXAMINATION TYPE: Axial Bone Density DATE OF EXAM: 08/13/2020 COMPARISON: NONE CLINICAL HISTORY: Height: 59 Weight: 132.3 FRAX RISK QUESTIONS: Alcohol (3 or more units per day): no Family History (Parent hip fracture): no Glucocorticoids (More than 3mos): no (Ex: prednisone, prednisolone, methylprednisolone, dexamethasone, and hydrocortisone). History of Fracture in Adulthood: no Secondary Osteoporosis: 1. Type 1 Diabetes: no 2. Hyperthyroidism: no 3. Menopause before 45: no 4. Malnutrition: no 5. Chronic liver disease: no Rheumatoid Arthritis: no Current Tobacco Use: no RISK FACTORS HISTORY OF: Active: no Diet low in dairy products/other sources of calcium: no Postmenopausal woman: age 46 Lost more than 2 inches in height since high school: yes MEDICATIONS: Additional History: EXAM MEASUREMENTS: Bone mineral densitometry was performed using the [employer] System. Bone mineral density as measured about the Lumbar spine is: ----- L1-L4(G/cm2): 1.148 T Score Values are as follows: ----- L2: -1.0 ----- L3: 0.5 ----- L4: 0.5 ----- L1-L4: -0.3 Bone mineral density : baseline Bone mineral density about the R hip (g/cm2): 0.725 Bone mineral density about the L hip (g/cm2): 0.684 T Score values are as follows: -----R Neck: -2.3 -----L Neck: -2.5 -----R Total: -1.5 -----L Total: -2.2 Bone mineral density : baseline IMPRESSION: Osteopenia NOTE: T-SCORE=SD OF THE YOUNG ADULT MEAN.
--- NOTE | 2020-08-14 13:25 | MM ---
Reason for exam: screening (asymptomatic). Last mammogram was performed 4 years and 8 months ago. History: Patient is postmenopausal. Physical Findings: A clinical breast exam by your physician is recommended on an annual basis and results should be correlated with mammographic findings. MG 3D Screening Mammo W/Cad Bilateral CC and MLO view(s) were taken. Prior study comparison: December 03, 2015, bilateral MG 3d screening mammo w/cad. The breast tissue is heterogeneously dense. This may lower the sensitivity of mammography. There is no discrete abnormality. No significant changes when compared with prior studies. ASSESSMENT: Benign, BI-RAD 2 RECOMMENDATION: Routine screening mammogram of both breasts in 1 year.
== END | disposition home or self-care (01) ==
LOC: RADMAMWWP 08:04
PROVIDERS: ATTEND Family Medicine
DX: Z12.31 Encounter for screening mammogram for malignant neoplasm of breast (principal); M85.80 Other specified disorders of bone density and structure, unspecified site
CPT/HCPCS: 77063; 77067; 77080

== ENCOUNTER → 2021-09-12 | Outpatient (CLI) | payer MEDICARE ==
--- NOTE | 2021-09-12 13:14 | XR ---
Left knee HISTORY: Pain, trauma one week prior 3 views the left knee correlated prior exam 05/21/2020 There is no interval change. Bone mineralization is reduced which could limit sensitivity. Joint spac es, alignment are stable. Probable vascular calcifications are noted incidentally within the soft tis sues. Soft tissue swelling suspected. Suprapatellar increased attenuation may be indicative of small joint effusion. Marginal spurring present at the posterior patella. IMPRESSION: Osteopenia and probable mild osteoarthritic change. Soft tissue swelling and possible nay nt effusion, no acute fracture or dislocation is evident, consider alternate imaging for increased se nsitivity as indicated.
== END | disposition home or self-care (01) ==
LOC: RADXRYALE 11:18
PROVIDERS: ATTEND Physician Assistant
DX: S89.92XA Unspecified injury of left lower leg, initial encounter (principal); M85.88 Other specified disorders of bone density and structure, other site; X58.XXXA Exposure to other specified factors, initial encounter

== ENCOUNTER → 2022-03-24 | Outpatient (CLI) | payer MEDICARE ==
--- NOTE | 2022-03-24 20:39 | CT ---
EXAMINATION TYPE: CT brain w con CT DLP: 1122.0 mGycm, Automated exposure control for dose reduction was used. DATE OF EXAM: 03/24/2022 4:45 PM COMPARISON: CT brain 01/05/2019. CLINICAL INDICATION:Female, 81 years old with history of H57.12;, pain behind left eye TECHNIQUE: Axial CT images of the brain were obtained with coronal and sagittal reformats created and reviewed. Contrast used:80 mL of Isovue 300 with IV Contrast, Oral contrast used: none. FINDINGS: Extra-axial spaces: No abnormal extra-axial fluid collections. Ventricular system: Within normal limits Cerebral parenchyma: Remote right basal ganglia lacunar injury. No acute intraparenchymal hemorrhage or mass effect. The burciaga-white junction is well differentiated. Scattered hypoattenuating areas are seen within the white matter. No abnormal enhancement is seen after the administration of intravenous contrast. Cerebellum: Unremarkable. Mass effect: No evidence of midline shift. Intracranial vasculature: Atherosclerotic calcifications of the intracranial vessels. Soft tissues: Normal. Calvarium/osseous structures: No depressed skull fracture. Paranasal sinuses and mastoid air cells: Mild scattered paranasal sinus disease.. Visualized orbits: Bilateral aphakia. The intraconal next, fat are symmetric bilaterally. IMPRESSION: 1. No acute intracranial process. 2. No evidence for acute process to explain the patient's pain posterior to the left globe. 3. Remote lacunar injuries along with nonspecific white matter changes likely secondary to chronic m icroangiopathy.
== END | disposition home or self-care (01) ==
LOC: RADCTMAIN 15:18
PROVIDERS: ATTEND Family Medicine
DX: H57.12 Ocular pain, left eye (principal)
CPT/HCPCS: 82565; 84520; 70460; 36415; Q9967

== ENCOUNTER 2022-07-06 17:29 | Inpatient (IN) | payer MEDICARE ==
--- NOTE | 2022-07-06 17:52 | ED ---
General Adult HPI - General Chief complaint: Altered Mental Status Stated complaint: AMS Time Seen by Provider: 07/06/22 17:48 Source: patient, family Mode of arrival: ambulatory Limitations: altered mental status - History of Present Illness Initial comments: Patient brought to the ED by her daughter for evaluation. Per daughter, the patient lives with her, and she states that the patient has been confused and "saying weird things" for the past 4 hours or so. She states that the patient was telling her to cut her tongue out, and she also states that the patient was telling her to sweet pickled fruit maker a blanket that wasn't there. Daughter states the patient is normally A and O 3 and this is an acute change for her. Daughter denies known alcohol or drug use, trauma or fall, fever or chills, any pain complaint from the patient, vomiting, difficulty breathing, or any other symptoms or complaints. History from the patient is very limited at this time secondary to altered mental status. Patient states "no" when asked if she has any pain. Patient states that she "feels fine" when asked how she feels. - Related Data Home Medications Medication Instructions Recorded Confirmed Atorvastatin [Lipitor] 40 mg PO HS 04/30/17 01/05/19 Losartan/Hydrochlorothiazide 1 tab PO DAILY 04/30/17 01/05/19 [Losartan-Hctz 100-25 mg Tab] Omeprazole [PriLOSEC] 20 mg PO DAILY 04/30/17 01/05/19 Aspirin 325 mg PO DAILY 03/13/18 01/05/19 Acetaminophen Tab [Tylenol] 500 mg PO HS 01/05/19 01/05/19 Meloxicam [Mobic] 7.5 mg PO BID 01/05/19 01/05/19 Previous Rx's Medication Instructions Recorded Loratadine [Claritin] 10 mg PO DAILY #10 tab 01/06/19 Allergies Allergy/AdvReac Type Severity Reaction Status Date / Time adhesive tape Allergy Rash/Hives Verified 07/06/22 17:37 hydrocodone [From [place]] Allergy Hallucinati Verified 07/06/22 17:37 ons Review of Systems ROS Statement: Those systems with pertinent positive or pertinent negative responses have been documented in the HPI. ROS Other: All systems not noted in ROS Statement are negative. Limitations: ROS unobtainable due to patients medical condition Past Medical History Past Medical History: CVA/TIA, Dementia, GERD/Reflux, Hyperlipidemia, Hyp ertension Additional Past Medical History / Comment(s): several strokes per daughter; chronic left shoulder pain; vitamin D deficiency History of Any Multi-Drug Resistant Organisms: None Reported Past Surgical History: Appendectomy, Hysterectomy Additional Past Surgical History / Comment(s): left ankle surgery - fused, right shoulder Past Anesthesia/Blood Transfusion Reactions: No Reported Reaction Past Psychological History: Anxiety Smoking Status: Never smoker Past Alcohol Use History: None Reported Past Drug Use History: None Reported - Past Family History Father Family Medical History: No Reported History Mother Family Medical History: No Reported History Daughter(s) Family Medical History: Fibromyalgia General Exam Limitations: no limitations General appearance: alert, in no apparent distress Head exam: Present: atraumatic, normocephalic Eye exam: Present: other (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 Absent: tenderness, meningismus Respiratory exam: Present: normal lung sounds bilaterally. Absent: respiratory distress, wheezes, rales, rhonchi, stridor Cardiovascular Exam: Present: regular rate, normal rhythm, normal heart sounds, other (Normal radial pulses bilaterally) GI/Abdominal exam: Present: soft. Absent: distended, tenderness, guarding Extremities exam: Absent: tenderness, pedal edema, calf tenderness Neurological exam: Present: alert, CN II-XII intact, other (Patient is not oriented to person, place or time). Absent: motor sensory deficit Psychiatric exam: Present: normal affect Skin exam: Present: warm, dry, intact, normal color Course Vital Signs 07/06/22 07/06/22 07/06/22 17:35 18:10 18:58 Temperature 98.6 F Pulse Rate 99 89 91 Respiratory 22 18 18 Rate Blood Pressure 206/80 180/101 197/130 O2 Sat by Pulse 97 100 99 Oximetry - Reevaluation(s) Reevaluation #1: 07/06/22 20:20 Case, H&P, test results and ED management thus far were discussed with Dr. Newby. He accepts hospital admission. He agrees with neurology consultation. He has no further recommendations at this time. 07/06/22 20:23 Patient remains alert and breathing comfortably. Patient continues to have a nonfocal neurological exam. Daughter is aware the patient's test results, and she agrees with hospital admission at this time. EKG Findings - EKG Comments: EKG Findings:: Normal sinus rhythm, ventricular rate of 83 bpm, normal WI and QRS intervals, normal QT interval, minimal voltage criteria for LVH, normal axis, no ST or T-wave abnormality Medical Decision Making - Medical Decision Making The etiology of the patient's acute confusion/mental status change is unclear at this time. Patient has no focal neurological deficit/abnormality. Patient's labs are fairly unremarkable. Patient's noncontrast head CT shows no acute abnormality. Patient's urine studies are still pending at this time. Patient was given a dose of oral aspirin in the ED. Will admit the patient to the hospital for further evaluation and management. Dr. Newby has accepted hospital admission. - Lab Data Result diagrams: 07/06/22 18:20 07/06/22 18:20 Lab Results 07/06/22 07/06/22 07/06/22 Range/Units 18:20 18:20 18:20 WBC 10.0 (3.8-10.6) k/uL RBC 4.57 (3.80-5.40) m/uL Hgb 13.9 (11.4-16.0) gm/dL Hct 41.1 (34.0-46.0) % MCV 90.0 (80.0-100.0) fL MCH 30.5 (25.0-35.0) pg MCHC 33.9 (31.0-37.0) g/dL RDW 13.0 (11.5-15.5) % Plt Count 302 (150-450) k/uL MPV 8.2 Neutrophils % 83 % Lymphocytes % 10 % Monocytes % 4 % Eosinophils % 1 % Basophils % 1 % Neutrophils # 8.3 H (1.3-7.7) k/uL Lymphocytes # 1.0 (1.0-4.8) k/uL Monocytes # 0.4 (0-1.0) k/uL Eosinophils # 0.1 (0-0.7) k/uL Basophils # 0.1 (0-0.2) k/uL PT 10.4 (9.0-12.0) sec INR 1.0 (<1.2) APTT 20.8 L (22.0-30.0) sec Sodium 136 L (137-145) mmol/L Potassium 4.0 (3.5-5.1) mmol/L Chloride 102 (98-107) mmol/L Carbon Dioxide 25 (22-30) mmol/L Anion Gap 9 mmol/L BUN 17 (7-17) mg/dL Creatinine 0.65 (0.52-1.04) mg/dL Est GFR (CKD-EPI)AfAm >90 (>60 ml/min/1.73 sqM) Est GFR (CKD-EPI)NonAf 84 (>60 ml/min/1.73 sqM) Glucose 93 (74-99) mg/dL POC Glucose (mg/dL) (70-110) mg/dL POC Glu Classroom Assistant ID Calcium 9.4 (8.4-10.2) mg/dL Total Bilirubin 0.8 (0.2-1.3) mg/dL AST 26 (14-36) U/L ALT 22 (4-34) U/L Alkaline Phosphatase 67 (38-126) U/L Ammonia (<30) umol/L Troponin I (0.000-0.034) ng/mL Total Protein 7.0 (6.3-8.2) g/dL Albumin 4.5 (3.5-5.0) g/dL Serum Alcohol <10 mg/dL 07/06/22 07/06/22 07/06/22 Range/Units 18:20 18:20 18:51 WBC (3.8-10.6) k/uL RBC (3.80-5.40) m/uL Hgb (11.4-16.0) gm/dL Hct (34.0-46.0) % MCV (80.0-100.0) fL MCH (25.0-35.0) pg MCHC (31.0-37.0) g/dL RDW (11.5-15.5) % Plt Count (150-450) k/uL MPV Neutrophils % % Lymphocytes % % Monocytes % % Eosinophils % % Basophils % % Neutrophils # (1.3-7.7) k/uL Lymphocytes # (1.0-4.8) k/uL Monocytes # (0-1.0) k/uL Eosinophils # (0-0.7) k/uL Basophils # (0-0.2) k/uL PT (9.0-12.0) sec INR (<1.2) APTT (22.0-30.0) sec Sodium (137-145) mmol/L Potassium (3.5-5.1) mmol/L Chloride (98-107) mmol/L Carbon Dioxide (22-30) mmol/L Anion Gap mmol/L BUN (7-17) mg/dL Creatinine (0.52-1.04) mg/dL Est GFR (CKD-EPI)AfAm (>60 ml/min/1.73 sqM) Est GFR (CKD-EPI)NonAf (>60 ml/min/1.73 sqM) Glucose (74-99) mg/dL POC Glucose (mg/dL) 89 (70-110) mg/dL POC Glu Classroom Assistant ID Bryn Fitch Calcium (8.4-10.2) mg/dL Total Bilirubin (0.2-1.3) mg/dL AST (14-36) U/L ALT (4-34) U/L Alkaline Phosphatase (38-126) U/L Ammonia <9 (<30) umol/L Troponin I 0.016 (0.000-0.034) ng/mL Total Protein (6.3-8.2) g/dL Albumin (3.5-5.0) g/dL Serum Alcohol mg/dL - Radiology Data Chest x-ray: Hiatal hernia without change. No active cardiopulmonary disease. Noncontrast head CT: Cerebral atrophy and chronic small vessel ischemia. No acute intracranial abnormality. No change compared to old exam. Disposition Clinical Impression: Altered mental status Disposition: ADMITTED IP TO THIS HOSP Condition: Stable Is patient prescribed a controlled substance at d/c from ED?: No Referrals: Emmanuel Dunaway DO [Primary Care Provider] - 1-2 days Time of Disposition: 20:21
[2022-07-06 18:31] LABS: Basophils # (A) 0.1 k/uL (0-0.2); Basophils % (A) 1 %; Eosinophils # (A) 0.1 k/uL (0-0.7); Eosinophils % (A) 1 %; HCT 41.1 % (34.0-46.0); HGB 13.9 gm/dL (11.4-16.0); Lymphocytes % (A) 10 %; MCH 30.5 pg (25.0-35.0); MCHC 33.9 g/dL (31.0-37.0); Mean Platelet Volume 8.2; Monocytes # (A) 0.4 k/uL (0-1.0); Monocytes % (A) 4 %; Neutrophils # (A) 8.3 k/uL (1.3-7.7); Neutrophils % (A) 83 %; Platelet Count 302 k/uL (150-450); RBC 4.57 m/uL (3.80-5.40)
--- NOTE | 2022-07-06 18:38 | XR ---
EXAMINATION TYPE: XR chest 1V portable DATE OF EXAM: 07/06/2022 COMPARISON: 05/24/2020 HISTORY: Altered mental status TECHNIQUE: FINDINGS: There is moderate hiatal hernia. Lungs are clear. No heart failure. There are no hilar mass es. Bony thorax is intact. There is right shoulder prosthesis with apparent anterior dislocation of t he shoulder joint. IMPRESSION: Hiatal hernia without change. No active cardiopulmonary disease.
[2022-07-06 18:41] LABS: ALT 22 U/L (4-34); AST 26 U/L (14-36); African American GFR (CKD) >90 (>60 ml/min/1.73 sqM); Albumin 4.5 g/dL (3.5-5.0); Alcohol <10 mg/dL; Alkaline Phosphatase 67 U/L (38-126); Anion Gap 9 mmol/L; Blood Urea Nitrogen 17 mg/dL (7-17); Calcium 9.4 mg/dL (8.4-10.2); Carbon Dioxide 25 mmol/L (22-30); Chloride 102 mmol/L (98-107); Glucose 93 mg/dL (74-99); Non-African American GFR(CKD) 84 (>60 ml/min/1.73 sqM); Sodium 136 mmol/L (137-145); Total Bilirubin 0.8 mg/dL (0.2-1.3)
[2022-07-06 18:53] LABS: Glucose,Whole Blood 89 mg/dL (70-110)
[2022-07-06 18:58] LABS: Partial Thromboplastin Time 20.8 sec (22.0-30.0); Prothrombin Time 10.4 sec (9.0-12.0)
--- NOTE | 2022-07-06 19:31 | CT ---
EXAMINATION TYPE: CT brain wo con DATE OF EXAM: 07/06/2022 COMPARISON: 03/24/2022 HISTORY: AMS CT DLP: 1117.4 mGycm Automated exposure control for dose reduction was used. Images of the brain obtained with no contrast. There is cerebral cortical atrophy. There is no mass effect or midline shift. No sign of intracranial hemorrhage. There is some hypodensity in the periventricular white matter. The calvarium is intact. Skull base is intact. There is normal aeration of the mastoid sinuses. IMPRESSION: Cerebral atrophy and chronic small vessel ischemia. No acute intracranial abnormality. No change comp ared to old exam.
[2022-07-06] MEDS ORDERED: ASPIRIN 81 MG PO STA (19:51)
[2022-07-06] MEDS ORDERED: cloNIDine HCL 0.1 MG TAB PO PRN (20:30)
[2022-07-06 20:34] LABS: Appearance,Urine Cloudy (Clear); Bilirubin,Urine Negative (Negative); Blood,Urine Small (Negative); Color,Urine Yellow; Glucose,Urine (UA) Negative (Negative); Ketones,Urine Trace (Negative); Leukocyte Esterase,Urine Large (Negative); Mucus,Urine Rare /hpf; Nitrite,Urine Negative (Negative); PH, Urine 7.5 (5.0-8.0); Protein,Urine 1+ (Negative); RBC,Urine 15 /hpf (0-5); Specific Gravity,Urine 1.019 (1.001-1.035); Squamous Epithelial Cell,Urine 5 /hpf (0-4); Urobilinogen,Urine <2.0 mg/dL (<2.0); WBC,Urine 42 /hpf (0-5)
[2022-07-06 20:45] LABS: Amphetamine Screen,Urine Not Detected (NotDetected); Barbiturate Screen,Urine Not Detected (NotDetected); Benzodiazepines Screen,Urine Not Detected (NotDetected); Cocaine Screen,Urine Not Detected (NotDetected); Methadone Screen, Urine Not Detected (NotDetected); Opiate Screen,Urine Not Detected (NotDetected); Oxycodone Screen, Urine Not Detected (NotDetected); Phencyclidine Screen,Urine Not Detected (NotDetected); Tricyclic Antidepressant,Urine Not Detected (NotDetected); Urn Cannabinoid Scrn Not Detected (NotDetected)
[2022-07-06] MEDS ORDERED: QUEtiapine 25 MG TAB PO STA (21:02)
[2022-07-06] MEDS ORDERED: ACETAMINOPHEN TAB 325 MG TAB PO PRN (21:33)
[2022-07-06] MEDS ORDERED: NALOXONE 0.4 MG/ML 1 ML VIAL IV PRN (21:33)
[2022-07-06] MEDS: ACETAMINOPHEN TAB 500 MG TAB PO SCH (23:26)
[2022-07-06] MEDS: ATORVASTATIN 40 MG TAB PO SCH (23:26)
--- NOTE | 2022-07-06 23:54 | P.HPIM ---
History of Present Illness H&P Date: 07/06/22 Chief Complaint: altered mental status , maxine n 82 year old female with hypertension uncontrolled , past history of stroke patient unable to provide any meaningful history due to confusion which started suddenly today, patient was calling on pets names that dont exist , and being restless all day , for which her daughter decided to bring her in,. no report of fever, chills, changes in urinary or bowel habits, no coughing or other URI symptoms , no other focal neuro deficits no recent travel , hospital stay , or changes in her meds. no reported falls or injuries upon evaluation in the ED, patient seemed awake , confused blood work overall was unremarkable Brain CT no acute pathology CXR no acute patholgy UA pending Review of Systems ROS unobtainable: due to mental status Past Medical History Past Medical History: CVA/TIA, Dementia, GERD/Reflux, Hyperlipidemia, Hypertens ion Additional Past Medical History / Comment(s): several strokes per daughter; chronic left shoulder pain; vitamin D deficiency History of Any Multi-Drug Resistant Organisms: None Reported Past Surgical History: Appendectomy, Hysterectomy Additional Past Surgical History / Comment(s): left ankle surgery - fused, right shoulder Past Anesthesia/Blood Transfusion Reactions: No Reported Reaction Past Psychological History: Anxiety Smoking Status: Never smoker Past Alcohol Use History: None Reported Past Drug Use History: None Reported - Past Family History Father Family Medical History: No Reported History Mother Family Medical History: No Reported History Daughter(s) Family Medical History: Fibromyalgia Medications and Allergies Home Medications Medication Instructions Recorded Confirmed Type Atorvastatin [Lipitor] 40 mg PO HS 04/30/17 07/06/22 History Omeprazole [PriLOSEC] 20 mg PO DAILY 04/30/17 07/06/22 History Acetaminophen Tab [Tylenol] 1,000 mg PO HS 01/05/19 07/06/22 History Acetaminophen Tab [Tylenol Tab] 500 mg PO Q6H PRN 07/06/22 07/06/22 History Aspirin EC [Ecotrin Low Dose] 81 mg PO DAILY 07/06/22 07/06/22 History L.acidoph,Paracasei, B.lactis 1 cap PO DAILY 07/06/22 07/06/22 History [Probiotic] Losartan Potassium 100 mg PO HS 07/06/22 07/06/22 History Allergies Allergy/AdvReac Type Severity Reaction Status Date / Time adhesive tape Allergy Rash/Hives Verified 07/06/22 21:30 hydrocodone [From [place]] Allergy Hallucinati Verified 07/06/22 21:30 ons Physical Exam Vitals: Vital Signs Temp Pulse Resp BP Pulse Ox 07/06/22 18:58 91 18 197/130 99 07/06/22 18:10 89 18 180/101 100 07/06/22 17:35 98.6 F 99 22 206/80 97 Intake and Output 07/06/22 07/06/22 07/06/22 06:59 14:59 22:59 Other: Weight 61.235 kg Constitutional: No acute distress, confused, restless Eyes: Anicteric sclerae, moist conjunctiva, left eye blind , right eye pupil reactive to light ENMT: NC/AT Oropharynx clear, no erythema, or exudates Neck: Supple, no masses, or JVD No carotid bruits No thyromegaly Lungs: Clear to auscultation Clear to percussion Normal respiratory effort, no accessory muscle use Cardiovascular: Heart regular in rate and rhythm, No murmurs, gallops, or rubs No peripheral edema Abdominal: Soft Nontender, no guarding, rebound or rigidity Abdomen moving with respiration Normoactive bowel sounds No hepatomegaly, No splenomegaly No palpable mass No abdominal wall hernia noted Skin: Normal temperature, tone, texture, turgor No induration No subcutaneous nodules No rash, lesions No ulcers Extremities: No digital cyanosis No clubbing Pedal pulses intact and symmetrical Radial pulses intact and symmetrical No calf tenderness Psychiatric: Alert and oriented to person, only Neuro Muscles Strength 4/5 in all 4 extremities Sensation to light touch grossly present throughout Cranial nerves II-XII grossly intact Lymphatics: no palpable cervical or supraclavicular , lymph nodes Results CBC & Chem 7: 07/06/22 18:20 07/06/22 18:20 Labs: Abnormal Lab Results - Last 24 Hours (Table) 07/06/22 07/06/22 07/06/22 Range/Units 18:20 18:20 18:20 Neutrophils # 8.3 H (1.3-7.7) k/uL APTT 20.8 L (22.0-30.0) sec Sodium 136 L (137-145) mmol/L Assessment and Plan Assessment: acute metabolic encephalopathy suspected UTI , pending UA hypertensive urgency plan fall precautions neuro consult follow up UA and cultures monitor vital signs if UA positive , start rocephine CT brain no acute pathology CXR no acute pathology blood work overall unremarkable seroquel for agitation resume home BP meds clonidine PRN for systolic blood pressure > 180 Full code DVT PPX mechanical
[2022-07-07 07:21] LABS: Basophils % (A) 0 %; Eosinophils # (A) 0.2 k/uL (0-0.7); Eosinophils % (A) 3 %; HCT 37.6 % (34.0-46.0); HGB 12.7 gm/dL (11.4-16.0); Lymphocytes # (A) 2.1 k/uL (1.0-4.8); Lymphocytes % (A) 32 %; MCH 30.7 pg (25.0-35.0); MCHC 33.9 g/dL (31.0-37.0); MCV 90.6 fL (80.0-100.0); Mean Platelet Volume 8.6; Monocytes # (A) 0.5 k/uL (0-1.0); Monocytes % (A) 8 %; Neutrophils # (A) 3.6 k/uL (1.3-7.7); Neutrophils % (A) 55 %; Platelet Count 266 k/uL (150-450); RBC 4.14 m/uL (3.80-5.40); RDW 13.1 % (11.5-15.5); WBC 6.6 k/uL (3.8-10.6)
[2022-07-07 07:41] LABS: Albumin 3.7 g/dL (3.5-5.0); Calcium 8.7 mg/dL (8.4-10.2); Potassium 3.8 mmol/L (3.5-5.1); Total Bilirubin 1.1 mg/dL (0.2-1.3)
[2022-07-07] MEDS: LORATADINE 10 MG TAB PO SCH (09:47)
[2022-07-07] MEDS: PANTOPRAZOLE 40 MG TABLET PO SCH (09:47)
[2022-07-07] MEDS: LOSARTAN-HCTZ 50-12.5 MG 1 EACH TAB PO SCH (09:47)
[2022-07-07] MEDS: ASPIRIN 325 MG TAB PO SCH (09:47)
--- NOTE | 2022-07-07 10:00 | P.CNNES ---
History of Present Illness Consult date: 07/07/22 Requesting physician: Harris Randolph Reason for Consult: Altered mental status History of Present Illness: Patient is a 82-year-old female came to the hospital yesterday at 5:29 PM for confusion. Patient is extremely hard of hearing, not able to provide any history. I spoke to patient's daughter on the phone, who states that patient used to live in [place] until 7 years ago, when she moved with the patient's daughter. Patient's daughter states that she was told that she has history of "4 strokes" in the past while she was living in [place], but patient has no obvious residual deficits. She walks with a walker for the 7 years. Her gait has been getting worse for the last couple days. Patient's daughter admits that patient is very very hard of hearing, and uses hearing aids and also has issues with her eyesight. However she does communicate well. 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 Patient's daughter denies any history of dementia in the patient, as her memory has been perfect until last 1 week, when she has been mixing up words. She was calling heating pad as a microwave. Patient has been acting slightly confused, sometimes not making sense for last 1 week, which got worse on the day of admission. Patient's daughter states that she stuck her tongue out and asked daughter to cut her tongue to get better. Her words were confused. She was calling the dog as "peanuts". She was asking for blanket, although she already had it on. Patient does have history of ulcer in the past, but has not been complaining of any abdominal pain any fever or chills. No history of diabetes, tobacco use or alcohol use. She does have history of hypertension. Patient has 2 other children, one of them she has no contact for number of years, who left house at age 17. The other daughter lives in [place]. Vital signs arrival blood pressure 206/80, pulse rate 99, temperature 98.6. Blood pressure has now improved. Blood test shows normal CBC, PT/PTT, sodium 136 potassium 4.0, normal renal functions. Apparently repeat blood test shows slightly elevated BUN 20, creatinine 1.05. Ammonia is <9, UA shows large amount of leukocyte Estrace, 46 WBCs and vocational WBC clumps. Urine drug screen and blood alcohol level negative. CT head showed cerebral atrophy and chronic small vessel ischemia. No acute intracranial abnormality. EKG shows sinus rhythm, minimal voltage criteria for LVH. Chest x-ray showed hiatal hernia without change. No acute cardiopulmonary process. Patient had a normal carotid Doppler on 09/02/2018. Urine cultures pending. Patient's home medications include omeprazole 20 mg, Lipitor 40 mg, aspirin 81 mg and losartan 100 mg daily. Review of Systems Due to extremely difficult hard of hearing. She does not have hearing aids at this time on top of her baseline decreased hearing. ROS unobtainable: due to mental status Past Medical History Past Medical History: CVA/TIA, Dementia, GERD/Reflux, Hyperlipidemia, Hypertension Additional Past Medical History / Comment(s): several strokes per daughter; chronic left shoulder pain; vitamin D deficiency History of Any Multi-Drug Resistant Organisms: None Reported Past Surgical History: Appendectomy, Hysterectomy Additional Past Surgical History / Comment(s): left ankle surgery - fused, right shoulder Past Anesthesia/Blood Transfusion Reactions: No Reported Reaction Past Psychological History: Anxiety Smoking Status: Never smoker Past Alcohol Use History: None Reported Past Drug Use History: None Reported - Past Family History Father Family Medical History: No Reported History Mother Family Medical History: No Reported History Daughter(s) Family Medical History: Fibromyalgia Medications and Allergies Home Medications Medication Instructions Recorded Confirmed Type Atorvastatin [Lipitor] 40 mg PO HS 04/30/17 07/06/22 History Omeprazole [PriLOSEC] 20 mg PO DAILY 04/30/17 07/06/22 History Acetaminophen Tab [Tylenol] 1,000 mg PO HS 01/05/19 07/06/22 History Acetaminophen Tab [Tylenol Tab] 500 mg PO Q6H PRN 07/06/22 07/06/22 History Aspirin EC [Ecotrin Low Dose] 81 mg PO DAILY 07/06/22 07/06/22 History L.acidoph,Paracasei, B.lactis 1 cap PO DAILY 07/06/22 07/06/22 History [Probiotic] Losartan Potassium 100 mg PO HS 07/06/22 07/06/22 History Allergies Allergy/AdvReac Type Severity Reaction Status Date / Time adhesive tape Allergy Rash/Hives Verified 07/06/22 21:30 hydrocodone [From [place]] Allergy Hallucinati Verified 07/06/22 21:30 ons Physical Examination - Vital Signs Vital Signs: Vital Signs Temp Pulse Pulse Resp BP BP Pulse Ox 07/07/22 05:15 99.1 F 86 16 112/60 96 07/06/22 23:24 97.7 F 86 16 150/85 95 07/06/22 21:54 89 20 152/95 96 07/06/22 18:58 91 18 197/130 99 07/06/22 18:10 89 18 180/101 100 07/06/22 17:35 98.6 F 99 22 206/80 97 Intake and Output 07/06/22 07/07/22 07/07/22 22:59 06:59 14:59 Intake Total 50 Balance 50 Intake: Intake, IV Titration 50 Amount cefTRIAXone 1 gm In 50 Sodium Chloride 0.9% 50 ml @ 100 mls/hr IVPB Q24H [facility] Rx#:[id number] Other: Voiding Method Diaper Weight 61.235 kg 61.235 kg Patient is an elderly female, who is extremely hard of hearing. She is not using her hearing aids it appears at this time, therefore her hearing is even further worse. Patient is alert awake, oriented only to self, knows her name Nina. She could not tell her age or where she is at. Partly due to severely impaired hearing and lack of using hearing aids. Speech and language functions could not be assessed. Cannot rule out some expressive aphasia. Patient could not repeat, possibly due to impaired hearing. Attention, concentration and fund of knowledge is very limited at this time. On cranial nerve examination, both pupils are surgical. Right is reactive, but the left is not. There is some corneal/lenticular opacity in the left. Her visual doe could not be tested. Extraocular muscles are intact with no nystagmus. Face is symmetric, tongue protrudes to the midline. Palatal elevation and sensation normal, hearing is very severely decreased and shoulder shrug normal, facial sensation normal. On muscle strength testing, there is no pronator drift. Patient did not coop erate well with examination of her arms and legs. It appears that there is no focal weakness. She does hold her arm up and maintains it up. Her compress trucker, biceps and triceps although decreased effort appeared symmetric. Likewise she was able to lift her legs off the bed, and hold it for short while before slowly bring it down. No focal weakness noticed in the legs either. Deep tendon reflexes are symmetric 1+ to 2+ bilaterally and plantars are upgoing bilaterally. Sensory to touch could not be assessed. Patient was feeling painful stimuli equally in the bilateral lower limbs with limb withdrawal and grimacing. Cerebellar function showed no obvious ataxia for [id number] testing on ei ther sides. Hftx-ne-kunz testing could not be performed. Tone and bulk of muscles normal. Gait deferred.. On general examination, there is no carotid bruit or murmur, S1-S2 audible. Chest is clear on consultation. Patient has some tenderness in the abdomen, mainly in the right upper quadrant and left lower quadrant. No organomegaly, bowel sounds present. Peripheral pulses are present. No edema. Results - Laboratory Findings CBC and BMP: 07/07/22 06:48 07/07/22 06:48 Abnormal Lab Findings: Abnormal Labs 07/06/22 07/06/22 07/06/22 18:20 18:20 18:20 Neutrophils # 8.3 H APTT 20.8 L Sodium 136 L BUN Creatinine Total Protein Urine Appearance Urine Protein Urine Ketones Urine Blood Ur Leukocyte Esterase Urine RBC Urine WBC Urine WBC Clumps Ur Squamous Epith Cells Urine Mucus 07/06/22 07/07/22 19:50 06:48 Neutrophils # APTT Sodium 134 L BUN 20 H Creatinine 1.05 H Total Protein 6.0 L Urine Appearance Cloudy H Urine Protein 1+ H Urine Ketones Trace H Urine Blood Small H Ur Leukocyte Esterase Large H Urine RBC 15 H Urine WBC 42 H Urine WBC Clumps Occasional H Ur Squamous Epith Cells 5 H Urine Mucus Rare H Assessment and Plan Assessment: * Altered mental status of one-week duration, particularly worse in the last 24 hours. Patient has mental confusion, speech difficulty, worsening gait. Rule out CVA versus delirium/encephalopathy related to UTI * Acute UTI * History of multiple strokes in the past with no residual deficits * Hard of hearing * Decreased vision baseline (per daughter) Plan: * MRI brain without contrast, to evaluate for acute/subacute stroke * Carotid Doppler * Fasting lipid panel, hemoglobin A1c * B12, folate * EEG to rule out any epileptiform activity * Telemetry monitoring. * Continue aspirin for now. * Will defer to IM regarding abdominal pain. * Discussed with patient's daughter and primary team in detail. * Neurology will follow. Thank you for the consult. Time with Patient: Greater than 30
--- NOTE | 2022-07-07 11:23 | US ---
EXAMINATION TYPE: US carotid duplex BILAT DATE OF EXAM: 07/07/2022 COMPARISON: NONE CLINICAL HISTORY: ?Aphasia, ? CVA. TECHNIQUE: Carotid duplex ultrasound examination. Indirect Doppler criteria was utilized. FINDINGS: EXAM MEASUREMENTS: RIGHT: Peak Systolic Velocity (PSV) cm/sec ----- Right CCA: 53.0 ----- Right ICA: 61.8 ----- Right ECA: 49.5 ICA/CCA ratio: 1.15 RIGHT: End Diastole cm/sec ----- Right CCA: 0.0 ----- Right ICA: 9.9 ----- Right ECA: 0.0 LEFT: Peak Systolic Velocity (PSV) cm/sec ----- Left CCA: 48.6 ----- Left ICA: 48.3 ----- Left ECA: 56.5 ICA/CCA ratio: 1.0 LEFT: End Diastole cm/sec ----- Left CCA: 6.7 ----- Left ICA: 7.4 ----- Left ECA: 0.0 VERTEBRALS (direction of flow): Right Vertebral: unable to obtain due to patient motion Left Vertebral: unable to obtain due to patient motion [employer]CH [employer]ENDING OFFICER NOTES: Patient moving constantly during test. Nurse assisted but patient still in constan t motion. Technically difficult very limited exam. Limited exam shows no obvious stenosis. IMPRESSION: 1. Markedly limited exam demonstrates no definite diagnostic evidence of significant stenosis. 2. Vertebral arteries not visualized. Criteria for Assigning % of Stenosis / Diameter reduction (Estimation based on the indirect measurements of the internal carotid artery velocities (ICA PSV). 1. Normal (no stenosis)=ICA PSV < 125 cm/s: ratio < 2.0: ICA EDV<40 cm/s. 2. Less than 50% stenosis=ICA PSV < 125 cm/s: ratio < 2.0: ICA EDV<40 cm/s. 3. 50 to 69% stenosis=ICA PSV of 125 to 230 cm/s: ration 2.0 ? 4.0: ICA EDV 40-100 cm/s. 4. Greater than 70% stenosis to near occlusion= ICA PSV > 230 cm/s: ratio > 4.0: ICA EDV > 100 cm/s. 5. Near occlusion= ICA PSV velocities may be low or undetectable: variable ratio and ICA EDV. 6. Total occlusion=unable to detect flow.
--- NOTE | 2022-07-07 13:36 | MR ---
EXAMINATION TYPE: MR brain wo con DATE OF EXAM: 07/07/2022 COMPARISON: CT brain from yesterday and older CTs. HISTORY: aphasia, CVA TECHNIQUE: Multiplanar, multisequence imaging of the brain and brainstem is performed without IV cont rast. FINDINGS: Diffusion weighted images demonstrate no evidence of a recent infarct or other diffusion abnormality. There is mild to moderate ventricular and sulcal prominence. There is multifocal and confluent areas of T2 hyperintensity seen throughout the white matter bilaterally. Old infarcts involving the bilater al external capsules are redemonstrated. T2 Star-weighted images show suspected areas of old blood pr oduct throughout the cerebellar hemispheres and brainstem along with involving the right lateral vent ricle axial image 301 series 702 smaller areas of involvement involving the inferior right parietal-o ccipital and left temporal lobes are felt present. Midline structures demonstrate normal morphology. The craniocervical junction appears within normal limits. Normal vascular flow voids are present. The visualized sinuses are clear and the globes are i ntact. IMPRESSION: 1. No MRI evidence for a recent infarct. 2. Mild to moderate diffuse cerebral atrophy along with moderate to advanced chronic small vessel isc hemic change and areas of old infarct are all identified. 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 Many could reflect product o f old trauma and/or old hemorrhagic infarcts.
--- NOTE | 2022-07-07 16:33 | P.PN ---
Subjective Progress Note Date: 07/07/22 Hospital course: Patient is a very pleasant 82-year-old female with a past medical history of hypertension, hyperlipidemia and previous CVA with speech impediment. Patient lives at home with her daughter and was brought to the emergency department on 07/06/22 for reports of increased confusion. CT head was completed revealing cerebral atrophy and chronic small vessel ischemia negative for acute intercranial abnormality. EKG revealing sinus mechanism 83 bpm with no noted T- wave or ST abnormalities showing no signs of acute ischemia. CBC, coags, and BMP showing no significant abnormalities. Troponin 0.016. Chest x-ray negative for acute cardiopulmonary process revealing a hiatal hernia unchanged. Urinalysis contaminated however concerning for infection with 42 WBCs. Urine drug screen negative. Serum alcohol less than 10. Initial blood pressure upon arrival to our facility revealed hypertensive urgency 206/80 with heart rate of 99. She was started on IV antibiotics Rocephin and admitted under our services with consultation to PT/OT and case management for possible placement. Physical exam: Patient seen and fully evaluated at bedside this morning. Patient pleasant and cooperative. Patient following commands had no noted neuro deficits at this time. Morning labs pending. Vital signs reviewed and stable. General: Nontoxic, no distress and appears stated age. Derm: Skin warm and dry, normal coloration for ethnicity. Head: Atraumatic, normocephalic and symmetric. Eyes: no lid lag, and anicteric sclera Mouth: no lip lesions, mucus membranes moist Cardiovascular: regular rate and rhythm with normal S1S2, systolic murmur, positive posterior tibial pulses bilaterally, and cap refill < 2 seconds. Lungs: Respirations even, regular, and unlabored on room air. Lungs CTA bilaterally, no rhonchi, no rales, no wheezing, and no accessory muscle usage. Abdominal: soft, nontender to palpation, no guarding, no appreciable organomegaly Ext: ROM intact. No gross muscle atrophy, no edema, no contractures Neuro: Impaired at baseline., face symmetrical, patient following commands, moving all extremities without any noted difficulty and no noted focal neuro deficits Psych: Patient with speech impairment, was cooperative. Assessment and Plan of Care: Acute metabolic encephalopathy -CT negative for acute process. -Acute confusion possibly secondary to underlying infectious process as urinalysis is concerning for UTI patient has been started on IV antibiotic Rocephin pending urine culture results. -MRI and EEG to be completed -Neurology following -Neuro checks -Telemetry monitoring -Continue aspirin and atorvastatin UTI -Urinalysis concerning for UTI - started on Rocephin pending urine culture results. Hypertensive urgency -Blood pressure stable at this time. -Monitor vital signs and continue daily medication management with losartan-Hctz CODE STATUS: Full code DVT prophylaxis: Lovenox Discussed with: Patient, neurology and RN Anticipated discharge date: Likely discharge in the next [address]: Return home with daughter with home care A total of 33 minutes was spent on the care of this complex patient more than 50% of the time was spent in counseling and care coordination. Berto Burr NP rendered care for this patient independently, reviewed the findings and plan as documented in the note above. I did not physically speak with or examine the patient on this date. Objective - Vital Signs Vital signs: Vital Signs Temp 99.1 F 07/07/22 05:15 Pulse 86 07/07/22 05:15 Resp 16 07/07/22 05:15 BP 112/60 07/07/22 05:15 Pulse Ox 96 07/07/22 05:15 FiO2 Intake & Output 07/06/22 07/07/22 07/07/22 18:59 06:59 18:59 Intake Total 50 Balance 50 Weight 61.235 kg 61.235 kg Intake: Intake, IV Titration 50 Amount cefTRIAXone 1 gm In 50 Sodium Chloride 0.9% 50 ml @ 100 mls/hr IVPB Q24H [facility] Rx#:[id number] Other: Voiding Method Diaper - Labs CBC & Chem 7: 07/07/22 06:48 07/07/22 06:48 Labs: Abnormal Lab Results - Last 24 Hours (Table) 07/06/22 07/06/22 07/06/22 Range/Units 18:20 18:20 18:20 Neutrophils # 8.3 H (1.3-7.7) k/uL APTT 20.8 L (22.0-30.0) sec Sodium 136 L (137-145) mmol/L BUN (7-17) mg/dL Creatinine (0.52-1.04) mg/dL Total Protein (6.3-8.2) g/dL Urine Appearance (Clear) Urine Protein (Negative) Urine Ketones (Negative) Urine Blood (Negative) Ur Leukocyte Esterase (Negative) Urine RBC (0-5) /hpf Urine WBC (0-5) /hpf Urine WBC Clumps (None) /hpf Ur Squamous Epith Cells (0-4) /hpf Urine Mucus (None) /hpf 07/06/22 07/07/22 Range/Units 19:50 06:48 Neutrophils # (1.3-7.7) k/uL APTT (22.0-30.0) sec Sodium 134 L (137-145) mmol/L BUN 20 H (7-17) mg/dL Creatinine 1.05 H (0.52-1.04) mg/dL Total Protein 6.0 L (6.3-8.2) g/dL Urine Appearance Cloudy H (Clear) Urine Protein 1+ H (Negative) Urine Ketones Trace H (Negative) Urine Blood Small H (Negative) Ur Leukocyte Esterase Large H (Negative) Urine RBC 15 H (0-5) /hpf Urine WBC 42 H (0-5) /hpf Urine WBC Clumps Occasional H (None) /hpf Ur Squamous Epith Cells 5 H (0-4) /hpf Urine Mucus Rare H (None) /hpf
[2022-07-07] MEDS ORDERED: CLOPIDOGREL 75 MG TAB PO SCH (17:30)
[2022-07-07] MEDS: ENOXAPARIN 40 MG/0.4 ML SYRINGE SQ SCH (18:40)
[2022-07-07] MEDS: ATORVASTATIN 40 MG TAB PO SCH (20:35)
[2022-07-07] MEDS: ACETAMINOPHEN TAB 500 MG TAB PO SCH (20:35)
[2022-07-08] MEDS: LORATADINE 10 MG TAB PO SCH (08:14)
[2022-07-08] MEDS: PANTOPRAZOLE 40 MG TABLET PO SCH (08:14)
[2022-07-08] MEDS: ASPIRIN 325 MG TAB PO SCH (08:14)
[2022-07-08] MEDS: ENOXAPARIN 40 MG/0.4 ML SYRINGE SQ SCH (08:15)
[2022-07-08] MEDS: LOSARTAN-HCTZ 50-12.5 MG 1 EACH TAB PO SCH (08:15)
[2022-07-08] MEDS ORDERED: HALOPERIDOL LACTATE 5 MG/ML 1 ML VIAL IM PRN (09:22)
--- NOTE | 2022-07-08 13:07 | P.PN ---
Subjective Progress Note Date: 07/08/22 Hospital course: Patient is a very pleasant 82-year-old female with a past medical history of hypertension, hyperlipidemia and previous CVA with speech impediment. Patient lives at home with her daughter and was brought to the emergency department on 07/06/22 for reports of increased confusion. CT head was completed revealing cerebral atrophy and chronic small vessel ischemia negative for acute intercranial abnormality. EKG revealing sinus mechanism 83 bpm with no noted T- wave or ST abnormalities showing no signs of acute ischemia. CBC, coags, and BMP showing no significant abnormalities. Troponin 0.016. Chest x-ray negative for acute cardiopulmonary process revealing a hiatal hernia unchanged. Urinalysis contaminated however concerning for infection with 42 WBCs. Urine drug screen negative. Serum alcohol less than 10. Initial blood pressure upon arrival to our facility revealed hypertensive urgency 206/80 with heart rate of 99. She was started on IV antibiotics Rocephin and admitted under our services with consultation to PT/OT and case management for possible placement. Physical exam: Patient seen and fully evaluated at bedside this morning. Patient pleasant and cooperative at time of assessment but would scream "Owwww" anywhere she was touched. RN reports that patient with increased agitation and aggression this morning yelling at staff, fighting staff, and attempting to get out of bed. Sitter was placed at bedside to maintain her safety. Order was placed for Haldol to be administered for agitation or acute psychosis. Order placed for psychiatry to evaluate. Vital signs reviewed and stable. General: Nontoxic, no distress and appears stated age. Derm: Skin warm and dry, normal coloration for ethnicity. Head: Atraumatic, normocephalic and symmetric. Eyes: no lid lag, and anicteric sclera Mouth: no lip lesions, mucus membranes moist Cardiovascular: regular rate and rhythm with normal S1S2, systolic murmur, positive posterior tibial pulses bilaterally, and cap refill < 2 seconds. Lungs: Respirations even, regular, and unlabored on room air. Lungs CTA bilaterally, no rhonchi, no rales, no wheezing, and no accessory muscle usage. Abdominal: soft, nontender to palpation, no guarding, no appreciable organomegaly Ext: ROM intact. No gross muscle atrophy, no edema, no contractures Neuro: Impaired at baseline., face symmetrical, patient following commands, moving all extremities without any noted difficulty and no noted focal neuro deficits Psych: Patient with speech impairment, was cooperative. Assessment and Plan of Care: Acute metabolic encephalopathy -CT negative for acute process. -Acute confusion possibly secondary to underlying infectious process as urinalysis is concerning for UTI patient has been started on IV antibiotic Rocephin pending urine culture results. -MRI and EEG to be completed -Neurology following -Neuro checks -Telemetry monitoring -Continue aspirin and atorvastatin -Haldol as needed for acute delirium/agitation/aggressive behaviors -Psychiatry consulted UTI -Urinalysis concerning for UTI -Patient started on Rocephin pending urine culture results. Hypertensive urgency -Blood pressure stable at this time. -Monitor vital signs and continue daily medication management with losartan-Hctz CODE STATUS: Full code DVT prophylaxis: Lovenox Discussed with: Patient, neurology and RN Anticipated discharge date: Likely discharge in the next [address]: Return home with daughter with home care A total of 35 minutes was spent on the care of this complex patient more than 50% of the time was spent in counseling and care coordination. Attending Note: Berto Burr NP rendered care for this patient independently, reviewed the f indings and plan as documented in the note above. I did not physically speak with or examine the patient on this date. Objective - Vital Signs Vital signs: Vital Signs Temp 98.1 F 07/08/22 05:00 Pulse 83 07/08/22 08:14 Resp 16 07/08/22 05:00 BP 185/75 07/08/22 08:14 Pulse Ox 96 07/08/22 05:00 FiO2 Intake & Output 07/07/22 07/08/22 07/08/22 18:59 06:59 18:59 Other: Voiding Method Toilet Bedside Commode Diaper Diaper # Voids 3 3 1 # Bowel Movements 1 0 - Labs CBC & Chem 7: 07/07/22 06:48 07/07/22 06:48 Labs: Microbiology - Last 24 Hours (Table) 07/06/22 19:50 Urine Culture - Preliminary Urine,Voided
[2022-07-08] MEDS ORDERED: QUEtiapine 25 MG TAB PO STA (13:23)
--- NOTE | 2022-07-08 13:32 | P.PN ---
Subjective Progress Note Date: 07/08/22 Patient was seen for a follow-up. Patient has been very restless, trying to get out of the bed, very agitated at times. Patient has received Haldol. Psychiatry has been consulted. No fever or chills, no signs of infection. Objective - Vital Signs Vital signs: Vital Signs Temp 98.1 F 07/08/22 05:00 Pulse 83 07/08/22 08:14 Resp 16 07/08/22 05:00 BP 185/75 07/08/22 08:14 Pulse Ox 96 07/08/22 05:00 FiO2 Intake & Output 07/07/22 07/08/22 07/08/22 18:59 06:59 18:59 Other: Voiding Method Toilet Bedside Commode Diaper Diaper # Voids 3 3 1 # Bowel Movements 1 0 - Exam Patient is hyper alert, appears delirious. Patient is very tender to touch all over. Anywhere she status, she begins of pain. Exam is nonfocal. - Labs CBC & Chem 7: 07/07/22 06:48 07/07/22 06:48 Labs: Microbiology - Last 24 Hours (Table) 07/06/22 19:50 Urine Culture - Preliminary Urine,Voided Assessment and Plan Assessment: * Altered mental status of one-week duration, particularly worse in the last 24 hours. Patient has mental confusion, speech difficulty, worsening gait. Probable delirium due to UTI. CVA ruled out with MRI. * Acute UTI * History of multiple strokes in the past with no residual deficits * Hard of hearing * Decreased vision baseline (per daughter) Plan: * MRI brain without contrast revealed no evidence of a recent infarct. Mild to moderate diffuse cerebral atrophy along with moderate to advanced chronic small vessel ischemic change and areas of old infarct are all identified. Evidence of diffuse axonal injury bilaterally greatest involving lower brain parenchyma and cerebellar hemisphere. Many could reflect product of oral trauma and/or hemorrhagic infarcts. I personally reviewed MRI, I agree with the findings. Significant small vessel disease particularly in the davy. * Carotid Doppler revealed markedly limited exam demonstrates no definite diagnostic evidence of significant stenosis. Vertebral arteries were not visualized. Patient was not cooperative it appears. * Fasting lipid panel, hemoglobin A1c 5.9 * B12 234, folate 11.7. We will start B12 replacement. TSH normal at 2.21. We will check RPR. * EEG was technically limited due to continuous movement and myogenic artifacts. No epileptiform activity was seen. * Continue aspirin for now. * Patient on Rocephin for UTI. * Psychiatry consultation for delirium.
--- NOTE | 2022-07-08 13:49 | P.CN ---
Psychiatric Consult - . Consult date: 07/08/22 Consult:: 07/08/22 13:48 IDENTIFYING DATA: This patient is a 82-year-old female with significant history of stroke who presented to our hospital on 07/06/2022 with altered mental status. HISTORY OF PRESENT ILLNESS: The patient presented to the hospital on 07/06/2022, brought into ED by her daughter for evaluation. The patient lives with her daughter and was notably acting bizarre and misnaming objects in the home 24 hours prior to her presentation to the hospital. Psychiatry has been consulted for evaluation of acute psychosis/altered mental status. Present at the patient's bedside is her daughter Karrie Denise. The patient is currently responding to internal stimuli, is gross disorganized, and appears delirious. History was obtained by interviewing the patient's daughter. The patient's daughter reports that the patient started acting bizarrely 24 hours prior to her presentation to the hospital. She reports that the patient initially started off with misnaming objects. She states that since then, the patient has been grossly delirious, speaking to people that are not present, and has been difficult to direct as of the last 12-24 hours. The patient's daughter reports that the patient may have had a history of strokes in the past. She is unaware of any psychiatric illness that the patient has been previously diagnosed with. She does state the patient who occasionally tell her "I'm not crazy." She reports her mother at baseline is alert and oriented in all spheres and is independent in her ADLs. The patient's daughter is unaware of any history of suicide attempts, manic episodes, or previous psychotic episodes from the patient. She does report the patient was significantly depressed after the passing of her approximately 20 years ago. PAST PSYCHIATRIC HISTORY: The patient's daughter reports a history of depression for the patient. She is unaware of any previous psychiatric admissions, psychiatric illness diagnoses, or previous history of treatment. PAST MEDICAL HISTORY: Past Medical History: CVA/TIA, Dementia, GERD/Reflux, Hyperlipidemia, Hypertension Additional Past Medical History / Comment(s): several strokes per daughter; chronic left shoulder pain; vitamin D deficiency History of Any Multi-Drug Resistant Organisms: None Reported Past Surgical History: Appendectomy, Hysterectomy Additional Past Surgical History / Comment(s): left ankle surgery - fused, right shoulder Past Anesthesia/Blood Transfusion Reactions: No Reported Reaction Past Psychological History: Anxiety Smoking Status: Never smoker Past Alcohol Use History: None Reported Past Drug Use History: None Reported ALLERGIES: Adhesive tape, hydrocodone CHEMICAL DEPENDENCY HISTORY: Patient's daughter denies any significant history of tobacco, alcohol, marijuana, or illicit drug use from her mother. FAMILY PSYCHIATRIC/SUBSTANCE USE HISTORY: No reported family history. SOCIAL HISTORY: The patient was previously living in [place] however moved in with her daughter approximately 7 years ago. The patient is a . She is currently retired. MENTAL STATUS EXAM: General Appearance: Patient appears to be stated age is alert however is disheveled in hygiene and grooming wearing hospital gown with very poor eye contact. Behavior: Patient displays psychomotor agitation. She is constantly tossing and turning and attempt to get out of bed. She appears to be responding to internal stimuli. Speech: Patient's speech is spontaneous, nonsensical, and nonlinear. She appears to be having a conversation with someone that is not present. Mood/Affect: Patient reports their mood is "great!", affect is disorganized and expansive. Suicidality/Homicidality: Unable to assess. Perceptions: Unable to assess. Though content/process: Grossly disorganized. Non linear. Internal stimuli. Memory and concentration: Grossly poor at this time. Judgment and insight: Grossly poor at this time. IMPRESSIONS: Altered mental status Urinary Tract infection PLAN: -At this time patient DOES NOT meet criteria for inpatient psychiatric admission. -At this time, the patient DOES NOT have decision making capacity at this time and is unable to reason through and communicate/appreciate the risks, benefits and alternatives to treatment. -Delirium precautions recommended with patient including - avoiding use of narcotics and MACHINE TESTER sedatives, limit anticholinergic medications when possible, frequent re-orientation, minimize use of restraints, open window shades during the day and close them at night -Would recommend the following medication changes/additions: Start Seroquel 25 mg twice daily for acute psychosis - EKG reviewed (QTc 409 ms) Agree with Haldol IM prn for agitation -TSH w/ reflex to T4 ordered -Continue 1:1 sitter for safety -Will continue to follow along Vital Signs Temp 98 F 07/08/22 12:37 Pulse 64 07/08/22 12:37 Resp 20 07/08/22 12:37 BP 185/75 07/08/22 08:14 Pulse Ox 98 07/08/22 12:37 FiO2 Intake & Output 07/07/22 07/08/22 07/08/22 18:59 06:59 18:59 Other: Voiding Method Toilet Bedside Commode Bedside Commode Diaper Diaper Diaper # Voids 3 3 1 # Bowel Movements 1 0 Laboratory Results WBC 6.6 k/uL (3.8-10.6) 07/07/22 06:48 RBC 4.14 m/uL (3.80-5.40) 07/07/22 06:48 Hgb 12.7 gm/dL (11.4-16.0) 07/07/22 06:48 Hct 37.6 % (34.0-46.0) 07/07/22 06:48 MCV 90.6 fL (80.0-100.0) 07/07/22 06:48 MCH 30.7 pg (25.0-35.0) 07/07/22 06:48 MCHC 33.9 g/dL (31.0-37.0) 07/07/22 06:48 RDW 13.1 % (11.5-15.5) 07/07/22 06:48 Plt Count 266 k/uL (150-450) 07/07/22 06:48 MPV 8.6 07/07/22 06:48 Neutrophils % 55 % 07/07/22 06:48 Lymphocytes % 32 % 07/07/22 06:48 Monocytes % 8 % 07/07/22 06:48 Eosinophils % 3 % 07/07/22 06:48 Basophils % 0 % 07/07/22 06:48 Neutrophils # 3.6 k/uL (1.3-7.7) 07/07/22 06:48 Lymphocytes # 2.1 k/uL (1.0-4.8) 07/07/22 06:48 Monocytes # 0.5 k/uL (0-1.0) 07/07/22 06:48 Eosinophils # 0.2 k/uL (0-0.7) 07/07/22 06:48 Basophils # 0.0 k/uL (0-0.2) 07/07/22 06:48 PT 10.4 sec (9.0-12.0) 07/06/22 18:20 INR 1.0 (<1.2) 07/06/22 18:20 APTT 20.8 sec (22.0-30.0) L 07/06/22 18:20 Sodium 134 mmol/L (137-145) L 07/07/22 06:48 Potassium 3.8 mmol/L (3.5-5.1) 07/07/22 06:48 Chloride 104 mmol/L (98-107) 07/07/22 06:48 Carbon Dioxide 23 mmol/L (22-30) 07/07/22 06:48 Anion Gap 7 mmol/L 07/07/22 06:48 BUN 20 mg/dL (7-17) H 07/07/22 06:48 Creatinine 1.05 mg/dL (0.52-1.04) H 07/07/22 06:48 Est GFR (CKD-EPI)AfAm 58 (>60 ml/min/1.73 sqM) 07/07/22 06:48 Est GFR (CKD-EPI)NonAf 50 (>60 ml/min/1.73 sqM) 07/07/22 06:48 Glucose 93 mg/dL (74-99) 07/07/22 06:48 POC Glucose (mg/dL) 89 mg/dL (70-110) 07/06/22 18:51 POC Glu Technical Business Analyst ID Bryn Fitch 07/06/22 18:[address] Glu mg/dL 121 07/07/22 06:48 Hemoglobin A1c 5.9 % (0.0-6.0) 07/07/22 06:48 Calcium 8.7 mg/dL (8.4-10.2) 07/07/22 06:48 Total Bilirubin 1.1 mg/dL (0.2-1.3) 07/07/22 06:48 AST 24 U/L (14-36) 07/07/22 06:48 ALT 18 U/L (4-34) 07/07/22 06:48 Alkaline Phosphatase 48 U/L (38-126) 07/07/22 06:48 Ammonia <9 umol/L (<30) 07/06/22 18:20 Troponin I 0.016 ng/mL (0.000-0.034) 07/06/22 18:20 Total Protein 6.0 g/dL (6.3-8.2) L 07/07/22 06:48 Albumin 3.7 g/dL (3.5-5.0) 07/07/22 06:48 Vitamin B12 234.0 pg/mL (200.0-944.0) 07/07/22 06:48 Folate 11.70 ng/mL (4.40-31.00) 07/07/22 06:48 Urine Color Yellow 07/06/22 19:50 Urine Appearance Cloudy (Clear) H 07/06/22 19:50 Urine pH 7.5 (5.0-8.0) 07/06/22 19:50 Ur Specific [place] 1.019 (1.001-1.035) 07/06/22 19:50 Urine Protein 1+ (Negative) H 07/06/22 19:50 Urine Glucose (UA) Negative (Negative) 07/06/22 19:50 Urine Ketones Trace (Negative) H 07/06/22 19:50 Urine Blood Small (Negative) H 07/06/22 19:50 Urine Nitrite Negative (Negative) 07/06/22 19:50 Urine Bilirubin Negative (Negative) 07/06/22 19:50 Urine Urobilinogen <2.0 mg/dL (<2.0) 07/06/22 19:50 Ur Leukocyte Esterase Large (Negative) H 07/06/22 19:50 Urine RBC 15 /hpf (0-5) H 07/06/22 19:50 Urine WBC 42 /hpf (0-5) H 07/06/22 19:50 Urine WBC Clumps Occasional /hpf (None) H 07/06/22 19:50 Ur Squamous Epith Cells 5 /hpf (0-4) H 07/06/22 19:50 Urine Mucus Rare /hpf (None) H 07/06/22 19:50 Urine Opiates Screen Not Detected (NotDetected) 07/06/22 19:50 Ur Oxycodone Screen Not Detected (NotDetected) 07/06/22 19:50 Urine Methadone Screen Not Detected (NotDetected) 07/06/22 19:50 Ur Propoxyphene Screen Not Detected (NotDetected) 07/06/22 19:50 Ur Barbiturates Screen Not Detected (NotDetected) 07/06/22 19:50 U Tricyclic Antidepress Not Detected (NotDetected) 07/06/22 19:50 Ur Phencyclidine Scrn Not Detected (NotDetected) 07/06/22 19:50 Ur Amphetamines Screen Not Detected (NotDetected) 07/06/22 19:50 U Methamphetamines Scrn Not Detected (NotDetected) 07/06/22 19:50 U Benzodiazepines Scrn Not Detected (NotDetected) 07/06/22 19:50 Urine Cocaine Screen Not Detected (NotDetected) 07/06/22 19:50 U Marijuana (THC) Screen Not Detected (NotDetected) 07/06/22 19:50 Serum Alcohol <10 mg/dL 07/06/22 18:20 Allergies Allergy/AdvReac Type Severity Reaction Status Date / Time adhesive tape Allergy Rash/Hives Verified 07/06/22 21:30 hydrocodone [From [facility]] Allergy Hallucinati Verified 07/06/22 21:30 ons 07/08/22 13:48
[2022-07-08] MEDS ORDERED: MAG HYDROX/AL HYDROX/SIMETH 30 ML, HYOSCYAMINE ELIXIR 10 ML, LIDOCAINE VISCOUS 2% 10 ML PO ONE ×3 (14:23)
[2022-07-08] MEDS: CYANOCOBALAMIN 1,000 MCG/ML 1 ML VIAL IM SCH (16:23)
[2022-07-08] MEDS: ATORVASTATIN 40 MG TAB PO SCH (21:00)
[2022-07-08] MEDS: ACETAMINOPHEN TAB 500 MG TAB PO SCH (21:00)
[2022-07-08] MEDS: QUEtiapine 25 MG TAB PO SCH (21:01)
[2022-07-09] MEDS: ASPIRIN 325 MG TAB PO SCH (08:57)
[2022-07-09] MEDS: CYANOCOBALAMIN 1,000 MCG/ML 1 ML VIAL IM SCH (08:57)
[2022-07-09] MEDS: LORATADINE 10 MG TAB PO SCH (08:57)
[2022-07-09] MEDS: PANTOPRAZOLE 40 MG TABLET PO SCH (08:57)
[2022-07-09] MEDS: QUEtiapine 25 MG TAB PO SCH (08:57)
[2022-07-09] MEDS: LOSARTAN-HCTZ 50-12.5 MG 1 EACH TAB PO SCH (08:58)
[2022-07-09] MEDS: ENOXAPARIN 40 MG/0.4 ML SYRINGE SQ SCH (09:34)
[2022-07-09 11:56] LABS: Chol/HDL Ratio 2.29 Ratio; LDL Cholesterol,Calculated 63.5 mg/dL (0.0-131.0)
--- NOTE | 2022-07-09 13:00 | P.PN ---
Progress Note - Text Progress Note Date: 07/09/22 Interval History: Patient was seen resting in bed. At her bedside is her daughter Karrie Denise. The patient continues to be grossly disorganized and responding to internal stimuli. She is speaking to people who are not present and is nonsensical in her speech. It is reported by staff that the patient was very agitated this morning and was scared that her daughter was . Her daughter however is alive and next to her in her room. The patient did require IM medication this morning. As per daughter, the patient has had a previous diagnosis of alzheimer's dementia and was previously on medication for this. Mental Status Exam: General Appearance: Patient appears to be stated age is initially somnolent but arousable. She is disheveled in hygiene and grooming wearing hospital gown with very poor eye contact. Behavior: Patient displays psychomotor agitation. Responding to internal stimuli. Speech: Patient's speech is spontaneous, nonsensical, and nonlinear. She appears to be having a conversation with someone that is not present. Mood/Affect: Patient reports their mood is "HI!", affect is disorganized and expansive. Suicidality/Homicidality: Unable to assess. Perceptions: Unable to assess. Though content/process: Grossly disorganized. Non linear. Internal stimuli. Memory and concentration: Grossly poor at this time. Judgment and insight: Grossly poor at this time. Vital Signs Temp 98.4 F 07/09/22 11:15 Pulse 71 07/09/22 11:15 Resp 18 07/09/22 11:15 BP 159/88 07/09/22 11:15 Pulse Ox 96 07/09/22 11:15 FiO2 Intake & Output 07/08/22 07/09/22 07/09/22 18:59 06:59 18:59 Output Total 0 0 Balance 0 0 Output: Stool 0 0 Other: Voiding Method Bedside Commode Bedside Commode Bedside Commode Diaper Diaper Diaper Incontinent # Voids 2 1 2 Laboratory Results - Last 24 Hours 07/08/22 07/08/22 07/09/22 14:55 14:55 04:44 Triglycerides 105.00 Cholesterol 150.00 LDL Cholesterol, Calc 63.5 VLDL Cholesterol, Calc 21.00 HDL Cholesterol 65.50 H Cholesterol/HDL Ratio 2.29 TSH 1.610 Treponema pallidum Ab Nonreactive Assessment Altered mental status Urinary Tract infection Plan: -At this time patient DOES NOT meet criteria for inpatient psychiatric admission. We will however continue to monitor and decide on a day-to-day basis if she requires psychiatric admission due to prolonged psychosis. -At this time, the patient DOES NOT have decision making capacity at this time and is unable to reason through and communicate/appreciate the risks, benefits and alternatives to treatment. -Delirium precautions recommended with patient including - avoiding use of narcotics and ASSEMBLER PLASTIC BOAT sedatives, limit anticholinergic medications when possible, frequent re-orientation, minimize use of restraints, open window shades during the day and close them at night -Would recommend the following medication changes/additions: Increase Seroquel to 25 mg in the morning and 75 mg at bedtime for psychosis Agree with Haldol IM prn for agitation -Continue 1:1 sitter for safety -Will continue to follow along
[2022-07-09] MEDS: THIAMINE 100 MG TAB PO SCH (15:03)
--- NOTE | 2022-07-09 17:07 | P.PN ---
Subjective Progress Note Date: 07/09/22 Hospital course: Patient is a very pleasant 82-year-old female with a past medical history of hypertension, hyperlipidemia and previous CVA with speech impediment. Patient lives at home with her daughter and was brought to the emergency department on 07/06/22 for reports of increased confusion. CT head was completed revealing cerebral atrophy and chronic small vessel ischemia negative for acute intercranial abnormality. EKG revealing sinus mechanism 83 bpm with no noted T- wave or ST abnormalities showing no signs of acute ischemia. CBC, coags, and BMP showing no significant abnormalities. Troponin 0.016. Chest x-ray negative for acute cardiopulmonary process revealing a hiatal hernia unchanged. Urinalysis contaminated however concerning for infection with 42 WBCs. Urine drug screen negative. Serum alcohol less than 10. Initial blood pressure upon arrival to our facility revealed hypertensive urgency 206/80 with heart rate of 99. She was started on IV antibiotics Rocephin and admitted under our services with consultation to PT/OT and case management for possible placement. Physical exam: Patient seen and fully evaluated at bedside this morning. Patient has been experiencing a rough morning with visual and auditory hallucinations. Patient very tearful stating that her daughter is , patient requiring continuous redirection and assurance that her daughter is still alive and plans to be visiting her today. Patient appears to be having conversations with individuals/things not in room. Patient pitting pillow in bed stating it is a dog. Psychiatry is following and did start patient on Seroquel. Patient also required a dose of Haldol this morning for acute psychosis. Sitter remains at bedside maintaining patient's safety. Preliminary urine cultures gram-negative. Awaiting final culture and sensitivity report. Vital signs reviewed and stable. General: Nontoxic, no distress and appears stated age. Derm: Skin warm and dry, normal coloration for ethnicity. Head: Atraumatic, normocephalic and symmetric. Eyes: no lid lag, and anicteric sclera Mouth: no lip lesions, mucus membranes moist Cardiovascular: regular rate and rhythm with normal S1S2, systolic murmur, positive posterior tibial pulses bilaterally, and cap refill < 2 seconds. Lungs: Respirations even, regular, and unlabored on room air. Lungs CTA bilaterally, no rhonchi, no rales, no wheezing, and no accessory muscle usage. Abdominal: soft, nontender to palpation, no guarding, no appreciable organomegaly Ext: ROM intact. No gross muscle atrophy, no edema, no contractures Neuro: Impaired at baseline., face symmetrical, patient following commands, moving all extremities without any noted difficulty and no noted focal neuro deficits Psych: Patient with speech impairment, was cooperative. Assessment and Plan of Care: Acute metabolic encephalopathy -CT negative for acute process. -Acute confusion possibly secondary to underlying infectious process as urin alysis is concerning for UTI patient has been started on IV antibiotic Rocephin pending urine culture results. -MRI and EEG to be completed -Neurology following -Neuro checks -Telemetry monitoring -Continue aspirin and atorvastatin -Haldol as needed for acute delirium/agitation/aggressive behaviors -Psychiatry consulted Consider remains at bedside maintaining patient's safety. UTI -Urinalysis concerning for UTI -Patient started on Rocephin pending urine culture results. Hypertensive urgency -Blood pressure stable at this time. -Monitor vital signs and continue daily medication management with losartan-Hctz I push this down continuous recording CODE STATUS: Full code DVT prophylaxis: Lovenox Discussed with: Patient, neurology and RN Anticipated discharge date: Likely discharge in the next [address]: Return home with daughter with home care A total of 35 minutes was spent on the care of this complex patient more than 50% of the time was spent in counseling and care coordination. Berto Burr NP rendered care for this patient independently, reviewed the findings and plan as documented in the note above. I did not physically speak with or examine the patient on this date. Objective - Vital Signs Vital signs: Vital Signs Temp 97.6 F 07/09/22 05:00 Pulse 90 07/09/22 05:00 Resp 16 07/09/22 05:00 BP 147/68 07/09/22 05:00 Pulse Ox 95 07/09/22 05:00 FiO2 Intake & Output 07/08/22 07/09/22 07/09/22 18:59 06:59 18:59 Output Total 0 0 Balance 0 0 Output: Stool 0 0 Other: Voiding Method Bedside Commode Bedside Commode Diaper Diaper # Voids 2 1 - Labs CBC & Chem 7: 07/07/22 06:48 07/07/22 06:48 Labs: Microbiology - Last 24 Hours (Table) 07/06/22 19:50 Urine Culture - Preliminary Urine,Voided Gram Neg Bacilli
[2022-07-09] MEDS ORDERED: QUEtiapine 25 MG TAB PO SCH (21:00)
--- NOTE | 2022-07-09 21:46 | P.PN ---
Subjective Progress Note Date: 07/09/22 Patient was seen for a follow-up. Patient continues to be very delirious, confused, sometimes gets agitated. No improvement so far. I asked patient about headache, patient replied "I don't know". Patient has been receiving Haldol as needed. Psychiatry has been following. No fever or chills, no signs of infection. WBC count is normal. Objective - Vital Signs Vital signs: Vital Signs Temp 97.6 F 07/09/22 05:00 Pulse 90 07/09/22 05:00 Resp 16 07/09/22 05:00 BP 147/68 07/09/22 05:00 Pulse Ox 95 07/09/22 05:00 FiO2 Intake & Output 07/08/22 07/09/22 07/09/22 18:59 06:59 18:59 Output Total 0 0 Balance 0 0 Output: Stool 0 0 Other: Voiding Method Bedside Commode Bedside Commode Diaper Diaper # Voids 2 1 - Labs CBC & Chem 7: 07/07/22 06:48 07/07/22 06:48 Labs: Microbiology - Last 24 Hours (Table) 07/06/22 19:50 Urine Culture - Preliminary Urine,Voided Gram Neg Bacilli Assessment and Plan Assessment: * Altered mental status of one-week duration, 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 Patient has mental confusion, speech difficulty, worsening gait. Probable delirium due to acute UTI. CVA ruled out with MRI. * Acute UTI due to Klebsiella oxytoca * History of multiple strokes in the past with no residual deficits * Hard of hearing * Decreased vision baseline (per daughter) Plan: * MRI brain without contrast revealed no evidence of a recent infarct. Mild to moderate diffuse cerebral atrophy along with moderate to advanced chronic small vessel ischemic change and areas of old infarct are all identified. Evidence of diffuse axonal injury bilaterally greatest involving lower brain parenchyma and cerebellar hemisphere. Many could reflect product of oral trauma and/or hemorrhagic infarcts. I personally reviewed MRI, I agree with the findings. Significant small vessel disease particularly in the davy. * Carotid Doppler revealed markedly limited exam demonstrates no definite diag nostic evidence of significant stenosis. Vertebral arteries were not visualized. Patient was not cooperative it appears. * Fasting lipid panel cholesterol 150, LDL 63, HDL 65 and triglycerides 105. Lipids well controlled. Hemoglobin A1c 5.9 * B12 234, folate 11.7. We will start B12 replacement. TSH normal at 2.21. RPR negative. * EEG was technically limited due to continuous movement and myogenic artifacts. No epileptiform activity was seen. * Continue aspirin for now. Avoid DAP due to microhemorrhages noted on brain MRI. Continue Protonix for prophylaxis. * Patient on Rocephin for UTI. * Psychiatry input appreciated. Patient started on Seroquel. * Check NMDA antibodies. * Start thiamine 100 mg orally daily. Discussed with primary team. * DVT prophylaxis: Patient on Lovenox 40 mg subcu daily. * Dr. Yemi Snowden Will resume neurology service in the morning.
[2022-07-09] MEDS: ACETAMINOPHEN TAB 500 MG TAB PO SCH (22:13)
[2022-07-09] MEDS: ATORVASTATIN 40 MG TAB PO SCH (22:14)
[2022-07-10] MEDS ORDERED: QUEtiapine 25 MG TAB PO SCH (09:00)
--- NOTE | 2022-07-10 10:26 | EEG ---
ELECTROENCEPHALOGRAM REPORT PREAMBLE: This is an 82-year-old female with speech difficulty and altered mental status. This study is performed to evaluate for any epileptiform activity. EEG FINDINGS: This is a 21-channel digital EEG recorded with video component, utilizing 10/20 international system with referential and bipolar montages. Recording is technically significantly limited because of continuous patient's head movement as well as some interference artifact of 60 hertz. The background appears to be somewhat slow in the theta range, perhaps in bihemispheric region. No definitive epileptiform activity was seen. Reactivity to eye opening or closing was not clearly seen because of the artifact. No seizures were recorded. IMPRESSION: This is a severely limited EEG because of continuous movement and electrode artifact seen in bihemispheric region. Given limitation of the EEG, no seizures were seen. Consider repeating EEG when the patient is more cooperative. MICHELLE / MARKY: [id number] /
[2022-07-10] MEDS: LORATADINE 10 MG TAB PO SCH (11:12)
[2022-07-10] MEDS: PANTOPRAZOLE 40 MG TABLET PO SCH (11:12)
[2022-07-10] MEDS: ASPIRIN 325 MG TAB PO SCH (11:12)
[2022-07-10] MEDS: ENOXAPARIN 40 MG/0.4 ML SYRINGE SQ SCH (11:12)
[2022-07-10] MEDS: THIAMINE 100 MG TAB PO SCH (11:12)
[2022-07-10 11:40] VITALS: BP 117/73; PULSE 56; RESP 18; TEMP 98.4
--- NOTE | 2022-07-10 11:46 | P.DS ---
Providers Date of admission: 07/08/22 13:04 Expected date of discharge: 07/10/22 Attending physician: Gayle Newby MD Consults: 07/06/22 21:33 Consult Physician Routine Consulting Provider: Kelsea Harrison Consult Reason/Comments: Altered mental status Do you want consulting provider notified?: Yes 07/08/22 09:21 Consult Physician Routine Consulting Provider: Mukesh Brand Consult Reason/Comments: geriatric psych Do you want consulting provider notified?: Already Contacted Primary care physician: [facility] Course: Discharge Diagnosis: Acute metabolic encephalopathy, improved with treatment of UTI and being started on Seroquel by psychiatry. Klebsiella oxytoca UTI. Patient discharged home on Keflex 500 mg every 8 hours for an additional 3 days to totally treatment course of 7 days of antibiotics. Hypertensive urgency, blood pressure stable Patient to continue home medication regimen with losartan potassium. Microhemorrhages of brain reported on MRI. Neurology recommending patient continue with daily aspirin but to avoid any DAPs. Patient to follow up outpatient with neurologist. NMDA antibodies were ordered and neurology to follow-up. History of CVA with speech and vision impairments, patient to continue with daily low-dose aspirin but to avoid DAPs secondary to MRI findings of micro hemorrhages. Hospital Course: Patient is a very pleasant 82-year-old female with a past medical history of hypertension, hyperlipidemia and previous CVA with speech and vision impairment. Patient lives at home with her daughter and was brought to the emergency department on 07/06/22 for reports of increased confusion. CT head was completed revealing cerebral atrophy and chronic small vessel ischemia negative for acute intercranial abnormality. EKG revealing sinus mechanism 83 bpm with no noted T-wave or ST abnormalities showing no signs of acute ischemia. CBC, coags, and BMP showing no significant abnormalities. Troponin 0.016. Chest x- ray negative for acute cardiopulmonary process revealing a hiatal hernia unchanged. Urinalysis contaminated however concerning for infection with 42 WBCs. Urine drug screen negative. Serum alcohol less than 10. Initial blood pressure upon arrival to our facility revealed hypertensive urgency 206/80 with heart rate of 99. She was started on IV antibiotics Rocephin and admitted under our services with consultation to PT/OT and case management for possible placement. During hospitalization patient was evaluated by neurologist and psychologist. She underwent an MRI which revealed no evidence of acute intercranial abnormality or recent infarct but did show mild to moderate diffuse cerebral atrophy along with moderate to advanced chronic small vessel ischemic changes and areas of old infarct with evidence of diffuse axonal injury bilaterally with greatest involving lower brain parenchyma and cerebellar hemispheres possibly reflecting signs of old from a or previous hemorrhagic infarcts. Neurology reviewed MRI recommending patient to continue aspirin but avoid any DAPs secondary to microhemorrhages noted on brain MRI. Neurology also obtained and NMDA antibody and to follow up on results after discharge. Patient evaluated by psychiatry diagnosing patient with acute psychosis and starting her on Seroquel. Urine culture resulting positive for Klebsiella oxytoca. Patient's mentation finally showing improvement, patient no longer showing signs of visual or auditory hallucinations. Patient appears to be resting comfortably. Discussed with patient's daughter at bedside, patient is medically stable at this time and being discharged into care of her daughter. Patient being discharged home with home care and patient's daughter verbalized understanding the patient will require 24-hour care and supervision. Patient discharged home with prescription for Keflex 500 mg every 8 hours for an additional 3 days to total of treatment course of 7 days of antibiotics for Klebsiella oxytoca UTI, thiamine, and Seroquel. Patient will need to follow up outpatient with her PCP in 1-2 days and neurology in 1-2 weeks. Physical exam: Vital signs reviewed and stable. General: Nontoxic, no distress and appears stated age. Derm: Skin warm and dry, normal coloration for ethnicity. Head: Atraumatic, normocephalic and symmetric. Eyes: no lid lag, and anicteric sclera Mouth: no lip lesions, mucus membranes moist Cardiovascular: regular rate and rhythm with normal S1S2, systolic murmur, positive posterior tibial pulses bilaterally, and cap refill < 2 seconds. Lungs: Respirations even, regular, and unlabored on room air. Lungs CTA bilater ally, no rhonchi, no rales, no wheezing, and no accessory muscle usage. Abdominal: soft, nontender to palpation, no guarding, no appreciable organomegaly Ext: ROM intact. No gross muscle atrophy, no edema, no contractures Neuro: Impaired at baseline., face symmetrical, patient following commands, moving all extremities without any noted difficulty and no noted focal neuro deficits Psych: Patient with speech impairment, was cooperative. A total of 34 minutes of time were spent preparing this complex discharge summary. Pt was discharged on 07/10/22 at 11:45 AM Assessment: Attending note Berto talley NP rendered care for this patient independently, reviewed the findings and plan as documented in the note above. I did not physically speak with or examined the patient on this date Patient Condition at Discharge: Stable Plan - Discharge Summary Discharge Rx Participant: Yes New Discharge Prescriptions: New QUEtiapine [SEROquel] 25 mg PO DAILY 30 Days #30 tab Thiamine [Vitamin B-1] 100 mg PO DAILY 30 Days #30 tab QUEtiapine [SEROquel] 75 mg PO HS 30 Days #90 tab Cephalexin [Keflex] 500 mg PO Q8HR 3 Days #9 cap Continue Omeprazole [PriLOSEC] 20 mg PO DAILY Atorvastatin [Lipitor] 40 mg PO HS Acetaminophen Tab [Tylenol] 1,000 mg PO HS Acetaminophen Tab [Tylenol] 500 mg PO Q6H PRN PRN Reason: Pain Or Fever > 100.5 L.acidoph,Paracasei, B.lactis [Probiotic] 1 cap PO DAILY Aspirin EC [Ecotrin Low Dose] 81 mg PO DAILY Losartan Potassium 100 mg PO HS Discharge Medication List Atorvastatin [Lipitor] 40 mg PO HS 04/30/17 [History] Omeprazole [PriLOSEC] 20 mg PO DAILY 04/30/17 [History] Acetaminophen Tab [Tylenol] 1,000 mg PO HS 01/05/19 [History] Acetaminophen Tab [Tylenol] 500 mg PO Q6H PRN 07/06/22 [History] Aspirin EC [Ecotrin Low Dose] 81 mg PO DAILY 07/06/22 [History] L.acidoph,Paracasei, B.lactis [Probiotic] 1 cap PO DAILY 07/06/22 [History] Losartan Potassium 100 mg PO HS 07/06/22 [History] Cephalexin [Keflex] 500 mg PO Q8HR 3 Days #9 cap 07/10/22 [Rx] QUEtiapine [SEROquel] 25 mg PO DAILY 30 Days #30 tab 07/10/22 [Rx] QUEtiapine [SEROquel] 75 mg PO HS 30 Days #90 tab 07/10/22 [Rx] Thiamine [Vitamin B-1] 100 mg PO DAILY 30 Days #30 tab 07/10/22 [Rx] Follow up Appointment(s)/Referral(s): Humble Menendez MD [REFERRING] - 1 Week [facility], [NON-STAFF] - 1 Week Emmanuel Dunaway DO [Primary Care Provider] - 1-2 days (office is closed. patient will have to call and schedule own appt.) Patient Instructions/Handouts: Cephalexin (By mouth), Thiamine (By mouth), Quetiapine (By mouth), Urinary Tract Infection in Women (DC), Alzheimer Disease (DC) Activity/Diet/Wound Care/Special Instructions: Activity: As tolerated. As discussed, patient requires 24-hour supervision and total care. Diet: Heart healthy and carb consistent diet. Avoid salts, or foods with hidden salts such as canned or boxed foods and frozen dinners. Extra salt makes your heart work harder and traps the fluid in your body for longer. Special Instructions: Take all of your medications as directed and remember to keep all of your doctor's appointments and follow-up as needed. Thank you for allowing us to participate in your care, it was truly a pleasure having you for our patient!!! Discharge Disposition: HOME WITH HOME HEALTH SERVICES
--- NOTE | 2022-07-10 12:25 | P.PN ---
Subjective Progress Note Date: 07/10/22 I am seeing the patient for the first time during this admission. It seems the patient has confusion with worsening gait and suspected that the patient has probable delirium due to an acute urinary tract infection and the MRI the brain was negative. And that NMDA antibodies was ordered to rule out any en cephalitis. Psychiatry team is on board. Per the daughter who is at bedside, she feels today she is doing better compared before but not back to baseline but improving. Please refer to Dr. Bates's note for further details, Objective - Vital Signs Vital signs: Vital Signs Temp 98.2 F 07/10/22 04:11 Pulse 76 07/10/22 04:11 Resp 16 07/10/22 04:11 BP 141/67 07/10/22 05:03 Pulse Ox 96 07/10/22 04:11 FiO2 Intake & Output 07/09/22 07/10/22 07/10/22 18:59 06:59 18:59 Intake Total 500 Output Total 0 Balance 500 Intake: Oral 500 Output: Stool 0 Other: Voiding Method Bedside Commode Bedside Commode Bedside Commode Diaper Diaper Diaper Incontinent Incontinent Incontinent # Voids 1 1 # Bowel Movements 1 - Exam GENERAL: The patient is lying in bed and is not in acute distress. NEUROLOGICAL: Limited because of patient condition/cooperation. Higher mental function: The patient is drowsy but is awakeable to voice. Oriented to self. She is following simple commands (lifting and sticking tongue out). Cranial nerves: No facial weakness. No dysarthria from limited language. Otherwise rest are limited. Motor: The strength is limited because of cooperation. Is lifting bilateral upper above gravity. No spontaneous movement. SOME OF THE WORK-UP DURING THIS HOSPITAL VISIT: * MRI brain without contrast revealed no evidence of a recent infarct. Mild to moderate diffuse cerebral atrophy along with moderate to advanced chronic small vessel ischemic change and areas of old infarct are all identified. Evidence of diffuse axonal injury bilaterally greatest involving lower brain parenchyma and cerebellar hemisphere. Many could reflect product of oral trauma and/or hemorrhagic infarcts. Dr. Bates felt patient has significant small vessel disease particularly in the davy. * Carotid Doppler revealed markedly limited exam demonstrates no definite diagnostic evidence of significant stenosis. Vertebral arteries were not visualized. Patient was not cooperative it appears. * Fasting lipid panel cholesterol 150, LDL 63, HDL 65 and triglycerides 105. Lipids well controlled. Hemoglobin A1c 5.9 * TSH normal at 2.21. RPR negative. * EEG was technically limited due to continuous movement and myogenic artifacts. No epileptiform activity was seen. - Labs CBC & Chem 7: 07/07/22 06:48 07/07/22 06:48 Labs: Abnormal Lab Results - Last 24 Hours (Table) 07/09/22 Range/Units 04:44 HDL Cholesterol 65.50 H (40.00-60.00) mg/dL Microbiology - Last 24 Hours (Table) 07/06/22 19:50 Urine Culture - Final Urine,Voided Klebsiella oxytoca Assessment and Plan Assessment: * Altered mental status of one-week duration. Patient has mental confusion, speech difficulty, worsening gait. Probable delirium due to acute UTI. No acute or subacute ischemic stroke on MRI Brain. EEG was negative for seizures.---according to daughter he mentation slightly improving today but not back to baseline. * Acute UTI due to Klebsiella oxytoca * History of multiple strokes in the past with no residual deficits * Hard of hearing * Decreased vision baseline (per daughter) Plan: * B12 234, folate 11.7. On Vitamin B12 replacement. * Per Dr. Bates, tp continue aspirin for now and avoid DAP due to microhemorrhages noted on brain MRI. * Patient on Rocephin for UTI. * Check NMDA antibodies ordered by Dr. Bates on 07/09/2022. * On thiamine 100 mg orally daily. * Psychiatry input appreciated. Patient started on Seroquel. * Will defer the rest of medical management to the primary team. Time with Patient: Less than 30
--- NOTE | 2022-07-10 13:29 | P.PN ---
Progress Note - Text Progress Note Date: 07/10/22 Interval History: Patient was seen resting in bed. At her bedside is her daughter Karrie Denise. The patient is currently alert and oriented to self only at this time. She has intermittent episodes of lucidity. She is denying any chest pain, short of breath, or medical issues or concerns to this provider. She is notably much more calm and cooperative and directable. As per discussion with the treatment team and the patient's daughter, the patient will be set up with home health care. Mental Status Exam: General Appearance: Patient appears to be stated age. Improved hygiene and grooming. Behavior: Patient displays normal psychomotor activity today. Speech: Patient's speech is nonspontaneous today. Nonlinear at times. Mood/Affect: Patient reports their mood is "okay", affect is euthymic with appropriate range. Suicidality/Homicidality: Patient denies Perceptions: Patient denies Though content/process: Some disorganization but intermittent episodes of lucidity. Memory and concentration: Mildly improving Judgment and insight: Mildly improving Vital Signs Temp 98.4 F 07/10/22 11:12 Pulse 56 L 07/10/22 11:12 Resp 18 07/10/22 11:12 BP 117/73 07/10/22 11:12 Pulse Ox 96 07/10/22 11:12 FiO2 Intake & Output 07/09/22 07/10/22 07/10/22 18:59 06:59 18:59 Intake Total 500 Output Total 0 Balance 500 Intake: Oral 500 Output: Stool 0 Other: Voiding Method Bedside Commode Bedside Commode Bedside Commode Diaper Diaper Diaper Incontinent Incontinent Incontinent # Voids 1 1 # Bowel Movements 1 Assessment Altered mental status Urinary Tract infection Plan: -At this time patient DOES NOT meet criteria for inpatient psychiatric admission. -At this time, the patient DOES NOT have decision making capacity at this time and is unable to reason through and communicate/appreciate the risks, benefits and alternatives to treatment. -Delirium precautions recommended with patient including - avoiding use of narcotics and SPECIFICATION MANAGER sedatives, limit anticholinergic medications when possible, frequent re-orientation, minimize use of restraints, open window shades during the day and close them at night -Would recommend the following medication changes/additions: Continue Seroquel to 25 mg in the morning and 75 mg at bedtime for psychosis -Recommend outpatient follow-up for reassessment of need for antipsychotic medications. Agree with Haldol IM prn for agitation -Psychiatry will sign off at this time. Patient is cleared psychiatrically for discharge.
== END 2022-07-10 13:51 | disposition home health service (06) | DRG 689 ==
LOC: EC 17:29 → 5NMEDONC 21:33 → OBSVTOIN 07-08 13:04 → 5NMEDONC 07-09 20:50
PROVIDERS: ADMIT Internal Medicine; ATTEND Internal Medicine
DX: N39.0 Urinary tract infection, site not specified (principal); G93.41 Metabolic encephalopathy; F02.82 Dementia in other diseases classified elsewhere, unspecified severity, with psychotic disturbance; F05 Delirium due to known physiological condition; G30.9 Alzheimer's disease, unspecified; I10 Essential (primary) hypertension; I16.0 Hypertensive urgency; E78.5 Hyperlipidemia, unspecified; B96.1 Klebsiella pneumoniae [K. pneumoniae] as the cause of diseases classified elsewhere; H91.93 Unspecified hearing loss, bilateral; R47.9 Unspecified speech disturbances; H54.7 Unspecified visual loss; Z28.310 Unvaccinated for COVID-19; Z86.73 Personal history of transient ischemic attack (TIA), and cerebral infarction without residual deficits; Z79.899 Other long term (current) drug therapy; Z79.82 Long term (current) use of aspirin; Z79.1 Long term (current) use of non-steroidal anti-inflammatories (NSAID); Z91.048 Other nonmedicinal substance allergy status; Z88.5 Allergy status to narcotic agent
CPT/HCPCS: 36415; 70450; 70551; 71045; 80053; 80061; 80306; 80320; 81001; 82140; 82607; 82746; 83036; 84443; 84484; 85025; 85610; 85730; 86255; 86780; 87077; 87086; 87186; 93005; 93880; 94760; 95816; 99285

== ENCOUNTER → 2023-03-05 | Outpatient (CLI) | payer MEDICARE ==
--- NOTE | 2023-03-05 14:42 | XR ---
EXAMINATION TYPE: XR chest 2V DATE OF EXAM: 03/05/2023 COMPARISON: 07/06/2022 TECHNIQUE: PA and lateral views submitted. HISTORY: Shortness of breath FINDINGS: The lungs are clear and there is no pneumothorax, pleural effusion, or focal pneumonia. Heart size normal and no overt failure. Postsurgical changes right shoulder with diffuse osteopenia. There is jones rgical change right upper quadrant. Limited inspiration with large hiatal hernia and left basilar con solidation likely related to compressive atelectasis. No overt failure. No pneumothorax. There is pro minence of right paratracheal stripe. IMPRESSION: 1. Large hiatal hernia with suspected left basilar atelectasis. Early infiltrate not excluded correla te clinically. 2. Stable prominence of the right paratracheal stripe stable dating back to 2019 and therefore likely related to either enlarged thyroid or ectatic vasculature. 3. Correlate for subluxation of the right shoulder prostheses
== END | disposition home or self-care (01) ==
LOC: RADXRYALE 13:32
PROVIDERS: ATTEND Physician Assistant
DX: R06.00 Dyspnea, unspecified (principal); K44.9 Diaphragmatic hernia without obstruction or gangrene
CPT/HCPCS: 71046

== ENCOUNTER → 2023-09-21 | Outpatient (CLI) | payer MEDICARE ==
--- NOTE | 2023-09-21 16:26 | XR ---
EXAMINATION TYPE: XR shoulder complete 3 views LT DATE OF EXAM: 09/21/2023 Comparison: 05/21/2020 Clinical History:83-year-old female chronic left shoulder pain [id number] LT SHLD PAIN Findings: There is moderate to severe degenerative joint space narrowing at the glenohumeral joint with some ir regularity of the subchondral articular surface and underlying subchondral cystic change that appears to have progressed from 2019. Inferior humeral head spurring is noted. Mild degenerative joint space narrowing AC joint. Possible narrowing of the subacromial space. Some patchy opacity noted at the le ft base, probably atelectasis. The medial least a moderate size hiatal hernia. Impression: 1. 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 2. Questionable narrowing of the subacromial space. Concern for underlying rotator cuff tear, MRI can be performed. 3. At least a moderate-sized hiatal hernia noted. Suspect patchy left basilar atelectasis.
== END | disposition home or self-care (01) ==
LOC: RADXRYALE 14:11
PROVIDERS: ATTEND Physician Assistant
DX: M19.012 Primary osteoarthritis, left shoulder (principal); K44.9 Diaphragmatic hernia without obstruction or gangrene

== ENCOUNTER 2025-03-02 20:08 | Emergency (ER) | payer MEDICARE ==
[2025-03-02 20:15] VITALS: TEMP 98
--- NOTE | 2025-03-02 20:28 | ED ---
Chest Pain HPI - General Chief Complaint: Chest Pain Stated Complaint: Chest Pains Time Seen by Provider: 03/02/25 20:19 Source: family Mode of arrival: wheelchair Limitations: physical limitation (Patient is very hard of hearing) - History of Present Illness Initial Comments: Patient is an 84-year-old woman here to have evaluation of chest wall pain that has come on after she had coughing. History limited as the patient is very hard of hearing MD Complaint: chest pain Onset/Timin -: hour(s) Onset: during rest Pain Location: substernal, left chest Pain Radiation: none Severity: severe Quality: sharp Consistency: intermittent Improves With: nothing Worsens With: nothing Treatments Prior to Arrival: other (Tylenol) - Related Data Home Medications Medication Instructions Recorded Confirmed Atorvastatin [Lipitor] 40 mg PO HS 04/30/17 07/06/22 Omeprazole [PriLOSEC] 20 mg PO DAILY 04/30/17 07/06/22 Acetaminophen Tab [Tylenol] 1,000 mg PO HS 01/05/19 07/06/22 Acetaminophen Tab [Tylenol] 500 mg PO Q6H PRN 07/06/22 07/06/22 Aspirin EC [Ecotrin Low Dose] 81 mg PO DAILY 07/06/22 07/06/22 L.acidoph,Paracasei, B.lactis 1 cap PO DAILY 07/06/22 07/06/22 [Probiotic] Losartan Potassium 100 mg PO HS 07/06/22 07/06/22 Previous Rx's Medication Instructions Recorded Cephalexin [Keflex] 500 mg PO Q8HR 3 Days #9 cap 07/10/22 QUEtiapine [SEROquel] 25 mg PO DAILY 30 Days #30 tab 07/10/22 QUEtiapine [SEROquel] 75 mg PO HS 30 Days #90 tab 07/10/22 Thiamine [Vitamin B-1] 100 mg PO DAILY 30 Days #30 tab 07/10/22 Magnesium Oxide [Mag-Oxide] 200 mg PO BID #20 tablet 03/03/25 Allergies Allergy/AdvReac Type Severity Reaction Status Date / Time adhesive tape Allergy Rash/Hives Verified 03/02/25 20:14 hydrocodone [From [place]] Allergy Hallucinati Verified 03/02/25 20:14 ons Review of Systems ROS Statement: Those systems with pertinent positive or pertinent negative responses have been documented in the HPI. ROS Other: All systems not noted in ROS Statement are negative. Limitations: ROS unobtainable due to patients medical condition Constitutional: Denies: fever, chills Respiratory: Denies: cough, dyspnea Cardiovascular: Reports: chest pain. Denies: palpitations Gastrointestinal: Denies: abdominal pain, nausea, vomiting Musculoskeletal: Denies: back pain Neurological: Denies: headache EKG Findings - EKG Results: EKG: interpreted by ERMD, sinus rhythm (Rate 83 bpm), normal axis, normal QRS, n ormal ST/T, no acute changes Past Medical History Past Medical History: CVA/TIA, Dementia, GERD/Reflux, Hyperlipidemia, Hypertension Additional Past Medical History / Comment(s): several strokes per daughter; chronic left shoulder pain; vitamin D deficiency History of Any Multi-Drug Resistant Organisms: None Reported Past Surgical History: Appendectomy, Hysterectomy Additional Past Surgical History / Comment(s): left ankle surgery - fused, right shoulder Past Anesthesia/Blood Transfusion Reactions: No Reported Reaction Past Psychological History: Anxiety Smoking Status: Never smoker Past Alcohol Use History: None Reported Past Drug Use History: None Reported - Past Family History Father Family Medical History: No Reported History Mother Family Medical History: No Reported History Daughter(s) Family Medical History: Fibromyalgia General Exam General appearance: alert, in no apparent distress Head exam: Present: atraumatic, normocephalic Eye exam: Present: normal appearance. Absent: scleral icterus, conjunctival injection Neck exam: Present: normal inspection Respiratory exam: Present: normal lung sounds bilaterally, chest wall tenderness. Absent: respiratory distress, wheezes, rales, rhonchi, stridor, accessory muscle use Cardiovascular Exam: Present: regular rate, normal rhythm, normal heart sounds. Absent: systolic murmur, diastolic murmur, rubs, gallop GI/Abdominal exam: Present: soft, hernia (There is a reducible and nontender umbilical hernia). Absent: distended, tenderness, guarding, rebound, rigid Extremities exam: Present: normal inspection, normal capillary refill. Absent: pedal edema, calf tenderness Back exam: Present: normal inspection Neurological exam: Present: alert Skin exam: Present: warm, dry, intact, normal color. Absent: rash Course Vital Signs 03/02/25 03/02/25 03/02/25 20:11 20:32 21:51 Temperature 98 F Pulse Rate 84 80 75 Respiratory 18 21 22 Rate Blood Pressure 159/63 177/85 153/100 O2 Sat by Pulse 91 L 96 96 Oximetry 03/03/25 01:04 Temperature Pulse Rate 74 Respiratory 16 Rate Blood Pressure 158/90 O2 Sat by Pulse 97 Oximetry Chest Pain MDM - MDM The patient had chest x-ray that I interpreted as negative for acute infiltrate, pneumothorax, congestive heart failure Was pt. sent in by a medical professional or institution (, [facility], [facility], urgent care, hospital, or skilled nursing...) When possible be specific @ -[No] Did you speak to anyone other than the patient for history (EMS, parent, family, police, friend...)? What history was obtained from this source @ -The patient's family member contributed to history. Did you review nursing and triage notes (agree or disagree)? Why? @ -[I reviewed and agree with nursing and triage notes] Were old charts reviewed (outside hosp., previous admission, EMS record, old EKG, old radiological studies, urgent care reports/EKG's, skilled nursing records)? Report findings @ -[No old charts were reviewed] Differential Diagnosis (chest pain, altered mental status, abdominal pain women, abdominal pain men, vaginal bleeding, weakness, fever, dyspnea, syncope, headache, dizziness, GI bleed, back pain, seizure, CVA, palpatations, mental health, musculoskeletal)? @ -[Differential Chest Pain: Stable Angina, Unstable Angina, STEMI, NSTEMI Aortic Dissection, Pneumothorax, Musculoskeletal, Esophageal Spasm GERD, Cholecystitis, Pancreatitis, Zoster, this is not meant to be an all-inclusive list. EKG interpreted by me (3pts min.). @ -[I interpreted as above] X-rays interpreted by me (1pt min.). @ -[I interpreted as above CT interpreted by me (1pt min.). @ -[None done] U/S interpreted by me (1pt. min.). @ -[None done] What testing was considered but not performed or refused? (CT, X-rays, U/S, labs)? Why? @ -[None] What meds were considered but not given or refused? Why? @ -[None] Did you discuss the management of the patient with other professionals (professionals i.e. , [facility], [facility], lab, RT, psych nurse, social insurance specialist, liquid natural gas plant operator, teacher, parking control officer, case preparer and liner)? Give summary @ -[No] Was smoking cessation discussed for >3mins.? @ -[No] Was critical care preformed (if so, how long)? @ -[No] Were there social determinants of health that impacted care today? How? (Homelessness, low income, unemployed, alcoholism, drug addiction, transportation, low edu. Level, literacy, decrease access to med. care, nursing home, rehab)? @ -[No] Was there de-escalation of care discussed even if they declined (Discuss DNR or withdrawal of care, Hospice)? DNR status @ -[No] What co-morbidities impacted this encounter? (DM, HTN, Smoking, COPD, CAD, Cancer, CVA, ARF, Chemo, Hep., AIDS, mental health diagnosis, sleep apnea, morbid obesity)? @ -[None] Was patient admitted / discharged? Hospital course, mention meds given and route, prescriptions, significant lab abnormalities, going to OR and other pertinent info. @ -[Patient is an 84-year-old woman here for chest pain which is reproducible. She is found to have hypomagnesemia and this is supplemented. At this point patient stable to continue as outpatient. Undiagnosed new problem with uncertain prognosis? @ -[No] Drug Therapy requiring intensive monitoring for toxicity (Heparin, Nitro, Insulin, Cardizem)? @ -[No] Were any procedures done? @ -[No] Diagnosis/symptom? @ -[Acute chest wall pain Hypomagnesemia Acute, or Chronic, or Acute on Chronic? @ -[Acute Uncomplicated (without systemic symptoms) or Complicated (systemic symptoms)? @ -[Uncomplicated Side effects of treatment? @ -[No] Exacerbation, Progression, or Severe Exacerbation? @ -[No] Poses a threat to life or bodily function? How? (Chest pain, [place], MS, pneumonia, PE, COPD, DKA, ARF, appy, cholecystitis, CVA, Diverticulitis, Homicidal, Suicidal, threat to staff... and all critical care pts) @ -[No] All treatments are based on ideal body weight as in ED triage Disposition Clinical Impression: Chest wall pain, Hypomagnesemia Disposition: HOME SELF-CARE Condition: Good Instructions (If sedation given, give patient instructions): Chest Pain (ED), Hypomagnesemia (ED) Prescriptions: Magnesium Oxide [Mag-Oxide] 200 mg PO BID #20 tablet Is patient prescribed a controlled substance at d/c from ED?: No Referrals: Emmanuel Dunaway DO [Primary Care Provider] - 1-2 days
[2025-03-02 20:43] LABS: Basophils # (A) 0.04 10*3/uL (0.00-0.10); Basophils % (A) 0.4 %; Eosinophils # (A) 0.30 10*3/uL (0.04-0.35); Eosinophils % (A) 3.2 %; HCT 35.8 % (37.2-46.3); HGB 12.3 g/dL (12.0-15.0); Lymphocytes # (A) 2.11 10*3/uL (0.90-5.00); Lymphocytes % (A) 22.5 %; MCH 31.2 pg (27.0-32.0); MCHC 34.4 g/dL (32.0-37.0); MCV 90.9 fL (80.0-97.0); Monocytes # (A) 0.84 10*3/uL (0.20-1.00); Monocytes % (A) 9.0 %; Neutrophils # (A) 6.03 10*3/uL (1.80-7.70); Neutrophils % (A) 64.5 %; Platelet Count 334 10*3/uL (140-440); RBC 3.94 10*6/uL (4.10-5.20); RDW 13.2 % (11.5-14.5); WBC 9.36 10*3/uL (4.50-10.00)
--- NOTE | 2025-03-02 20:52 | XR ---
EXAMINATION TYPE: XR chest 2V DATE OF EXAM: 03/02/2025 8:44 PM COMPARISON: 05/18/2023 CLINICAL INDICATION: Female, 84 years old with history of Chest Pain, TECHNIQUE: XR chest 2V view(s) obtained. FINDINGS: The heart size is mildly prominent. The pulmonary vasculature is normal. There is left lower lobe infiltrate. Correlate for atelectasis or pneumonia. Follow-up is recommended . IMPRESSION: 1. Left lower lobe infiltrate. Correlate for atelectasis or pneumonia. [facility], , 03/02/2025 8:50 PM
[2025-03-02 20:57] LABS: ALT 18 U/L (4-34); AST 20 U/L (14-36); African American GFR (CKD) 55 (>60 ml/min/1.73 sqM); Albumin 4.1 g/dL (3.5-5.0); Alkaline Phosphatase 64 U/L (38-126); Anion Gap 14 mmol/L; Blood Urea Nitrogen 27 mg/dL (7-17); Calcium 9.2 mg/dL (8.4-10.2); Carbon Dioxide 23 mmol/L (22-30); Chloride 96 mmol/L (98-107); Glucose 107 mg/dL (74-99); Magnesium 1.2 mg/dL (1.6-2.3); Non-African American GFR(CKD) 47 (>60 ml/min/1.73 sqM); Potassium 4.0 mmol/L (3.5-5.1); Sodium 133 mmol/L (137-145); Total Protein 6.6 g/dL (6.3-8.2)
[2025-03-02] MEDS: HYDROcodone/APAP 5-325MG 1 EACH TAB PO STA (20:58)
[2025-03-02 21:13] LABS: INR 0.9 (<1.2); Partial Thromboplastin Time 22.0 sec (22.0-30.0); Prothrombin Time 10.5 sec (10.0-12.5)
[2025-03-02] MEDS: MAGNESIUM SULFATE-D5W PMX 1 GM in DEXTROSE/WATER 1 100ML.BAG IVPB SCH (23:31)
[2025-03-03 01:06] VITALS: BP 158/90; PULSE 74; RESP 16
== END 2025-03-03 00:50 | disposition home or self-care (01) ==
LOC: EC 20:08
DX: R07.89 Other chest pain (principal); E83.42 Hypomagnesemia; Z91.048 Other nonmedicinal substance allergy status; Z88.5 Allergy status to narcotic agent
CPT/HCPCS: 36415; 93005; 85379; 80053; 83735; 84484; 85025; 85610; 85730; 71046; 99285; 96365; J3475